=== PATIENT | male | born 1955 | race African-American/Black ===

== ENCOUNTER 2017-12-01 14:10 | Emergency (ER) | payer OTHER ==
--- NOTE | 2017-12-01 14:17 | ER Document Report ---
ED General - General Chief Complaint: Seizure Stated Complaint: POSSIBLE SEIZURE Time Seen by Provider: 12/01/17 14:16 Mode of Arrival: Medic Information source: Emergency Med Personnel Cannot obtain history due to: Altered mental status - HPI Patient complains to provider of: seizure Onset: Other - This is a 62-year-old man without known past medical history that of hypertension is suspected that presents for evaluation from home after EMS was called for concern of headache as well as chest pain and not feeling well, upon their arrival the gentleman had slumped over a table he subsequently suffered what looked like a generalized tonic-clonic seizure, he was given 2 mg of Ativan intravenously subsequently had another 2 mg dose when he appeared to be potentially having another seizure. Thereafter he became minimally responsive and somnolent. No obvious seizure activity was identified. Rest of history is limited secondary to patient's obtunded status - Related Data Allergies/Adverse Reactions: Penicillins Allergy (Verified 12/01/17 14:55) Past Medical History - General Information source: Relative, Emergency Med Personnel - Social History Smoking Status: Current Every Day Smoker Frequency of alcohol use: Heavy Drug Abuse: None Lives with: Family Family History: None Review of Systems - Review of Systems -: Yes ROS unobtainable due to patient's medical condition Physical Exam - Vital signs Vitals: Resp 31 H 12/01/17 14:12 - General General appearance: Unresponsive In distress: Mild - HEENT Head: Normocephalic Eyes: Normal Conjunctiva: Normal Cornea: Normal Extraocular movements intact: Yes Eyelashes: Normal Pupils: PERRL - Respiratory Respiratory status: No respiratory distress Chest status: Nontender Breath sounds: Rhonchi - Most prominent in the left right lung - Cardiovascular Rhythm: Regular Heart sounds: Normal auscultation Murmur: No - Abdominal Inspection: Normal Distension: No distension Tenderness: Nontender - Back Back: Normal - Extremities General upper extremity: Normal inspection, Nontender, Normal strength, Normal temperature General lower extremity: Normal inspection, Nontender, Normal strength, Normal temperature - Neurological Neuro grossly intact: No Cognition: Confused, Inattentive Orientation: Disoriented to person, Disoriented to events Bri Coma Scale Eye Opening: To Pain Bri Coma Scale Verbal: Confused [place] Coma Scale Motor: Localizes to Pain [place] Coma Scale Total: 11 Speech: Normal Cranial nerves: Normal Motor strength normal: LUE, RUE, LLE, RLE - Psychological Associated symptoms: Restlessness Course - Re-evaluation Re-evalutation: 12/01/17 17:18 This 62-year-old man presented after a seizure. He has no known medical problems per EMS they believe that she may have hypertension. On examination this patient does respond to noxious stimuli, he is somnolent likely as a result of the Ativan he received and the potential postictal phase. Patient was immediately assessed in the trauma bay, determination was made that the patient was able to protect airway as such proceeded with CT image following EKG, EKG demonstrated what appeared to be peaked T waves through the chest leads. Because of the concern for some underlying abnormality and electrolytes accounting for an arrhythmia causing his posturing made determination to administer calcium gluconate prophylactically for hyperkalemia. Patient was emergently taken to CT scanner, CT imaging of the head demonstrated an obvious abnormality in the posterior circulation which appeared to involve bleeding. Made determination to obtain CTA however in discussion with radiologist they suggested possible CT with and without contrast. A chest x-ray was also obtained which demonstrated what appeared to be a circular lesion in the right lower lung field. The patient's mental status modestly improved during this time, he also was dosed with 1500 of Keppra as well as 10 of Decadron for possible cerebral edema and seizure prophylaxis. CT imaging with contrast of the head and chest demonstrated what appeared to be lesions involving the posterior circulation with a probable mass in the brain and a mass in the right lower lung field. The patient was placed on nasal cannula and was able to protect his airway, his mental status modestly improved throughout. Contacted on-call neurosurgeon at [facility] who discussed case and suggested medical optimization as this is a new metastatic lesion. Spoke to on-call hospitalist who agreed to admit this patient to the neuro intensive care unit. Because of the patient's well appearance deferred intubation in this patient, his blood pressure was never higher than 130 systolic while in the emergency department therefore deferred administration of nicardipine infusion. Did suggest that patient undergo emergent transport via air as he did represent the potential to decompensate. However during his time his mental status had improved and he was neurologically intact. I did discuss this with his prior to his being transferred she did note that he has not seen a physician in many years, is a heavy smoker, as also a very heavy daily drinker. She was in agreement with the current course of action. She was at the bedside and updated prior to patient being transferred. - Vital Signs Vital signs: Temp Pulse Resp BP Pulse Ox 98.5 F 88 18 129/90 H 94 12/01/17 16:03 12/01/17 15:30 12/01/17 16:04 12/01/17 16:04 12/01/17 16:04 - Laboratory Result Diagrams: 12/01/17 14:16 12/01/17 14:16 Laboratory results interpreted by me: 12/01/17 12/01/17 14:16 14:16 Hgb 17.2 H RDW 15.3 H Carbon Dioxide 8 L* Anion Gap 27 H Creatinine 1.27 H Est GFR (Non-Af Amer) 58 L Glucose 180 H Critical Care Note - Critical Care Note Total time excluding time spent on procedures (mins): 45 Discharge - Discharge Clinical Impression: Brain mass, Lung mass, Brain bleed, Seizure, Alcohol abuse, Cigarette smoker Condition: Critical Disposition: [facility]
[2017-12-01] MEDS ORDERED: CALCIUM GLUCONATE 1000 MG/10 ML INJ IV ONE (14:21)
[2017-12-01 14:33] LABS: ABSOLUTE BASOPHILS # (AUTO) 0.1 10^3/uL (0.0-0.2); ABSOLUTE LYMPHOCYTES (AUTO) 4.1 10^3/uL (0.5-4.7); ABSOLUTE NEUT (AUTO) 5.3 10^3/uL (1.7-8.2); BASOPHILS % (AUTO) 0.6 % (0-2); EOSINOPHILS % (AUTO) 0.3 % (0-6); HEMATOCRIT 50.8 % (37.9-51.0); HEMOGLOBIN 17.2 g/dL (13.5-17.0); MEAN CORPUSCULAR HEMOGLOBIN 31.5 pg (27.0-33.4); MEAN CORPUSCULAR HGB CONC 33.9 g/dL (32.0-36.0); MEAN CORPUSCULAR VOLUME 93 fl (80-97); MONOCYTES % (AUTO) 9.3 % (3-13); PLATELET COUNT 296 10^3/uL (150-450); RED BLOOD COUNT 5.48 10^6/uL (4.35-5.55); RED CELL DISTRIBUTION WIDTH 15.3 % (11.5-14.0); SEGMENTED NEUTROPHILS % (AUTO) 50.8 % (42-78); TOTAL CELLS COUNTED % (AUTO) 100 %; WHITE BLOOD COUNT 10.4 10^3/uL (4.0-10.5)
[2017-12-01] MEDS ORDERED: LEVETIRACETAM INJ/PF 500 MG/5 ML SDV IV ONE (14:34)
[2017-12-01] MEDS ORDERED: DEXAMETHASONE SOD PHOS INJ 10 MG/1 ML VIAL IV ONE (14:43)
--- NOTE | 2017-12-01 14:48 | RADIOLOGY REPORT (SQ) ---
EXAM DESCRIPTION: CT HEAD WITHOUT COMPLETED DATE/TIME: 12/01/2017 2:30 pm REASON FOR STUDY: unresponsive COMPARISON: None. TECHNIQUE: Axial images acquired through the brain without intravenous contrast. Images reviewed wi th bone, brain and subdural windows. Additional sagittal and coronal reconstructions were generated. Images stored on PACS. All CT scanners at this facility use dose modulation, iterative reconstruction, and/or weight based d osing when appropriate to reduce radiation dose to as low as reasonably achievable (ALARA). [facility]: Dose Right [facility]: CareDose [facility]: Dose Right [facility]: Teradose 4D [facility]: [employer] RADIATION DOSE: CT Rad equipment meets quality standard of care and radiation dose reduction techniq ues were employed. CTDIvol: 55.2 mGy. DLP: 1084 mGy-cm. mGy. LIMITATIONS: None. FINDINGS: VENTRICLES: Normal size and contour. CEREBRUM: There is a 3 cm area of parenchymal hemorrhage in the posterior parietal lobe on the right. There is associated edema. Few scattered areas of low density in the white matter most likely chron ic small vessel ischemic changes. CEREBELLUM: No masses. No hemorrhage. No alteration of density. No evidence for acute infarction. EXTRAAXIAL SPACES: No fluid collections. No masses. ORBITS AND GLOBE: No intra- or extraconal masses. Normal contour of globe without masses. CALVARIUM: No fracture. PARANASAL SINUSES: No fluid or mucosal thickening. SOFT TISSUES: No mass or hematoma. OTHER: No other significant finding. IMPRESSION: 3 cm hemorrhage in the right posterior parietal lobe with associated edema. Cannot excl ude tumor. Mild chronic microvascular ischemia. EVIDENCE OF ACUTE STROKE: Yes hemorrhage RIGHT SLAGGER. COMMENT: Findings were discussed with the ordering physician at 1441 hours on this date. Quality ID # 436: Final reports with documentation of one or more dose reduction techniques (e.g., Au tomated exposure control, adjustment of the mA and/or kV according to patient size, use of iterative reconstruction technique) TECHNICAL DOCUMENTATION: JOB ID: [id number] [employer]- All Rights Reserved Reading location - IP/workstation name: [email or web address]
[2017-12-01 14:53] LABS: ALANINE AMINOTRANSFERASE 31 U/L (21-72); ALKALINE PHOSPHATASE 59 U/L (38-126); ASPARTATE AMINO TRANSFERASE 38 U/L (17-59); BILIRUBIN,DIRECT 0.3 mg/dL (0.0-0.4); BILIRUBIN,TOTAL 0.7 mg/dL (0.2-1.3); BLOOD UREA NITROGEN 13 mg/dL (7-20); CALCIUM 8.9 mg/dL (8.4-10.2); CHLORIDE 106 mmol/L (98-107); GLUCOSE 180 mg/dL (75-110); POTASSIUM 4.3 mmol/L (3.6-5.0); SODIUM 140.9 mmol/L (137-145); TOTAL PROTEIN 6.6 g/dL (6.3-8.2)
--- NOTE | 2017-12-01 14:59 | RADIOLOGY REPORT (SQ) ---
EXAM DESCRIPTION: CHEST SINGLE VIEW COMPLETED DATE/TIME: 12/01/2017 2:47 pm REASON FOR STUDY: Poss Stroke COMPARISON: None. EXAM PARAMETERS: NUMBER OF VIEWS: One view. TECHNIQUE: Single frontal radiographic view of the chest acquired. RADIATION DOSE: NA LIMITATIONS: None. FINDINGS: LUNGS AND PLEURA: About a 6 cm mass is present in the right base. MEDIASTINUM AND HILAR STRUCTURES: No masses. Contour normal. HEART AND VASCULAR STRUCTURES: Heart normal in size. Normal vasculature. BONES: No acute findings. HARDWARE: None in the chest. OTHER: No other significant finding. IMPRESSION: 6 cm right lower lobe pulmonary mass. TECHNICAL DOCUMENTATION: JOB ID: [id number] [employer]- All Rights Reserved Reading location - IP/workstation name: [email or web address]
[2017-12-01 15:03] LABS: NT PRO BNP 128 pg/mL (5-900)
--- NOTE | 2017-12-01 15:03 | RADIOLOGY REPORT (SQ) ---
EXAM DESCRIPTION: CT HEAD WITH COMPLETED DATE/TIME: 12/01/2017 2:52 pm REASON FOR STUDY: qiuery mass vs bleed in posterior COMPARISON: Noncontrast CT Head 12/01/2017 TECHNIQUE: Axial images acquired through the brain with intravenous contrast. Images reviewed with b one, brain and subdural windows. Additional sagittal and coronal reconstructions were generated. Khushboo ges stored on PACS. All CT scanners at this facility use dose modulation, iterative reconstruction, and/or weight based d osing when appropriate to reduce radiation dose to as low as reasonably achievable (ALARA). [facility]: Dose Right [facility]: CareDose [facility]: Dose Right [facility]: Teradose 4D [facility]: [employer] CONTRAST TYPE AND DOSE: 79 mL Omnipaque 350- low osmolar. RENAL FUNCTION: Not recorded here RADIATION DOSE: CT Rad equipment meets quality standard of care and radiation dose reduction techniq ues were employed. CTDIvol: 53.2 mGy. DLP: 1044 mGy-cm.. LIMITATIONS: None. FINDINGS: VENTRICLES: Normal size and contour. CEREBRUM: 3 cm area of increased attenuation in the posterior parietal lobe on the right. There appe ars to be some peripheral enhancement. CEREBELLUM: No masses. No hemorrhage. No alteration of density. No evidence for acute infarction. No enhancing lesions. EXTRA-AXIAL SPACES: No fluid collections. No enhancing lesions. ORBITS AND GLOBE: No intra- or extraconal masses. Normal contour of globe without masses. CALVARIUM: No fracture. PARANASAL SINUSES: No fluid or mucosal thickening. SOFT TISSUES: No mass or hematoma. OTHER: No other significant finding. IMPRESSION: Metastatic lesion in the right posterior parietal lobe. There appears to be some associ ated hemorrhage centrally. EVIDENCE OF ACUTE STROKE: NO. TECHNICAL DOCUMENTATION: JOB ID: [id number] Quality ID # 436: Final reports with documentation of one or more dose reduction techniques (e.g., Au tomated exposure control, adjustment of the mA and/or kV according to patient size, use of iterative reconstruction technique) 2010 [employer]- All Rights Reserved Reading location - IP/workstation name: [email or web address]
[2017-12-01 15:05] LABS: CARBON DIOXIDE 8 mmol/L (22-30)
--- NOTE | 2017-12-01 15:08 | RADIOLOGY REPORT (SQ) ---
EXAM DESCRIPTION: CT CHEST WITH COMPLETED DATE/TIME: 12/01/2017 2:52 pm REASON FOR STUDY: lung mass on the right COMPARISON: None. TECHNIQUE: CT scan of the chest performed using helical scanning technique with dynamic intravenous contrast injection. Images reviewed with lung, soft tissue and bone windows. Reconstructed coronal and sagittal MPR and MIP images reviewed. All images stored on PACS. All CT scanners at this facility use dose modulation, iterative reconstruction, and/or weight based d osing when appropriate to reduce radiation dose to as low as reasonably achievable (ALARA). [facility]: Dose Right [facility]: CareDose [facility]: Dose Right [facility]: Teradose 4D [facility]: [employer] CONTRAST TYPE AND DOSE: contrast/concentration: Isovue 350.00 mg/ml; Total Contrast Delivered: 79.0 ml; Total Saline Delivered: 51.0 ml RENAL FUNCTION: Not recorded here RADIATION DOSE: CT Rad equipment meets quality standard of care and radiation dose reduction techniq ues were employed. CTDIvol: 14.4 mGy. DLP: 597 mGy-cm. . LIMITATIONS: None. FINDINGS: LUNGS AND PLEURA: There is a mass in the right lower lobe is measures 7.2 cm in AP diamete r on image 38 series 4. There may be some small satellite lesions inferolateral to the mass. HILAR AND MEDIASTINAL STRUCTURES: Right hilar adenopathy. Precarinal adenopathy. subcarinal adenopa thy. HEART AND VASCULAR STRUCTURES: No aneurysm or dissection. No central pulmonary emboli. No pericardi al effusion. HARDWARE: None in the chest. UPPER ABDOMEN: No significant findings. Limited exam. THYROID AND OTHER SOFT TISSUES: No masses. No adenopathy. BONES: No significant finding. OTHER: No other significant finding. IMPRESSION: Large right lower lobe lung mass. There may be some small satellite lesions. Cannot ex clude mild infiltrate peripheral to this. Hilar and mediastinal adenopathy. TECHNICAL DOCUMENTATION: JOB ID: [id number] Quality ID # 436: Final reports with documentation of one or more dose reduction techniques (e.g., Au tomated exposure control, adjustment of the mA and/or kV according to patient size, use of iterative reconstruction technique) 2010 [employer]- All Rights Reserved Reading location - IP/workstation name: [email or web address]
[2017-12-01 15:09] LABS: TROPONIN I < 0.012 ng/mL
[2017-12-01 15:26] LABS: ANION GAP 27 (5-19)
[2017-12-01] MEDS ORDERED: NICOTINE 21 MG/24 HR PATCH.TD24 TD ONE (15:59)
[2017-12-01 16:06] VITALS: BP 129/90
--- NOTE | 2017-12-01 19:21 | EKG REPORT ---
SEVERITY:- OTHERWISE NORMAL ECG - SINUS TACHYCARDIA BORDERLINE RIGHT AXIS DEVIATION : Confirmed by: Tiago Melchor MD 01-Dec-2017 19:20:37
== END 2017-12-01 16:14 | disposition short-term general hospital (02) ==
LOC: ER 14:10
DX: I61.1 Nontraumatic intracerebral hemorrhage in hemisphere, cortical (principal); R40.0 Somnolence; G93.89 Other specified disorders of brain; R91.8 Other nonspecific abnormal finding of lung field; R56.9 Unspecified convulsions; F10.10 Alcohol abuse, uncomplicated; F17.210 Nicotine dependence, cigarettes, uncomplicated; R09.89 Other specified symptoms and signs involving the circulatory and respiratory systems; R41.0 Disorientation, unspecified; Z88.0 Allergy status to penicillin
CPT/HCPCS: 93005; 99291; 96374; 96375; 36415; 85025; 80053; 84484; 83880; 71045; 70450; 70460; 71260; 93010; J0610; J1953; J1100

== ENCOUNTER → 2017-12-24 | Outpatient (CLI) | payer OTHER ==
--- NOTE | 2017-12-25 10:39 | RADIOLOGY REPORT (SQ) ---
EXAM DESCRIPTION: PET CT SKULL/THIGH COMPLETED DATE/TIME: 12/24/2017 9:40 pm REASON FOR STUDY: LUNG MASS R91.8 OTHER NONSPECIFIC ABNORMAL FINDING OF LUNG FIELD COMPARISON: CT brain 12/01/2017 CT chest 12/01/2017 RADIONUCLIDE AND DOSE: 11.7 mCi F18 FDG The route of agent administration: Intravenous FASTING BLOOD SUGAR: 118 mg/dl CONTRAST TYPE AND DOSE: No CT contrast given. TECHNIQUE: Blood glucose level was verified. Above dose of FDG was injected intravenously. 2-D seg mented attenuation correction images were obtained from the base of the skull to the midthighs. Nonc ontrast CT images were obtained for attenuation correction and fusion with emission images. CT image s were performed without oral or intravenous contrast and are not sensitive for parenchymal lesions. A series of overlapping emission PET images were obtained. Images reviewed and manipulated at [facility] work station by the radiologist. Images stored on PACS. LIMITATIONS: None. FINDINGS: HEAD AND NECK: No areas of abnormal metabolic activity in the soft tissues of the head and neck. CHEST: In the right lower lobe just above the hemidiaphragm, a 7 x 6.4 cm mass is present with a madhu pheral rim of hypermetabolic tissue ranging from 5 to 6 SUV. This finding is worrisome for a primary lung neoplasm. There is hypermetabolic adenopathy in the precarinal subcarinal and right hilar regions as follows: Precarinal 3.3 x 2.4 cm lymph node with peripheral rim of increased activity at SUV 4.4. Sub- carinal/inferior right hilar adenopathy 3.9 x 2.7 cm in size, with peripheral rim of increased a ctivity SUV 5.2. Multiple right hilar lymph nodes are present 1 to 2 cm in size ranging in activity from 3.9 to 4.3 RODRÍGUEZ V. ABDOMEN AND PELVIS: No areas of abnormal metabolic activity in the abdomen or pelvis. Expected physi ologic activity is present in the genitourinary system and bowel. PROXIMAL LOWER EXTREMITIES: No areas of abnormal metabolic activity in the soft tissues of the lower extremities. BONES: No abnormal metabolic activity in the visualized skeleton. ADDITIONAL CT FINDINGS: Question right vocal cord paralysis OTHER: Liver background activity 1.7 SUV. Blood pool background activity 1.3 SUV IMPRESSION: Malignant right lower lobe mass with malignant right hilar and mediastinal adenopathy. TECHNICAL DOCUMENTATION: JOB ID: [id number] [employer]- All Rights Reserved Reading location - IP/workstation name: [email or web address]
== END ==
LOC: RAD 18:47
PROVIDERS: ATTEND Internal Medicine Medical Oncology
DX: C34.31 Malignant neoplasm of lower lobe, right bronchus or lung (principal)
CPT/HCPCS: 78815; A9552

== ENCOUNTER 2018-01-08 08:52 | Day surgery (SDC) | payer OTHER ==
[2018-01-08 09:29] LABS: HEMATOCRIT 48.2 % (37.9-51.0); HEMOGLOBIN 17.1 g/dL (13.5-17.0); MEAN CORPUSCULAR HEMOGLOBIN 31.5 pg (27.0-33.4); MEAN CORPUSCULAR HGB CONC 35.4 g/dL (32.0-36.0); MEAN CORPUSCULAR VOLUME 89 fl (80-97); PLATELET COUNT 252 10^3/uL (150-450); RED BLOOD COUNT 5.43 10^6/uL (4.35-5.55); RED CELL DISTRIBUTION WIDTH 14.5 % (11.5-14.0); WHITE BLOOD COUNT 9.8 10^3/uL (4.0-10.5)
[2018-01-08 09:38] LABS: INTERNATIONAL RATION (INR) 0.86; PROTHROMBIN TIME 12.2 SEC (11.4-15.4)
[2018-01-08 09:39] LABS: PARTIAL THROMBOPLASTIN TIME 25.8 SEC (23.5-35.8)
[2018-01-08 09:55] LABS: BLOOD UREA NITROGEN 11 mg/dL (7-20)
[2018-01-08] MEDS ORDERED: FENTANYL CITRATE INJ/PF 100 MCG/2 ML AMPUL ONE ×2 (10:51→11:09)
[2018-01-08] MEDS ORDERED: LIDOCAINE 1% INJ-PF (10 MG/ML) 30 ML SDV ONE (10:51)
--- NOTE | 2018-01-08 12:25 | RADIOLOGY REPORT (SQ) ---
EXAM DESCRIPTION: CHEST SINGLE VIEW COMPLETED DATE/TIME: 01/08/2018 12:00 pm REASON FOR STUDY: LUNG MASS, POST RIGHT LUNG BIOPSY COMPARISON: 12/01/2017. EXAM PARAMETERS: NUMBER OF VIEWS: One view. TECHNIQUE: Single frontal radiographic view of the chest acquired. RADIATION DOSE: NA LIMITATIONS: None. FINDINGS: LUNGS AND PLEURA: Mass in the right lower lobe. Left lung clear. No pneumothorax. No pl eural effusion. MEDIASTINUM AND HILAR STRUCTURES: No masses. Contour normal. HEART AND VASCULAR STRUCTURES: Heart normal in size. Normal vasculature. BONES: No acute findings. HARDWARE: None in the chest. OTHER: No other significant finding. IMPRESSION: NO PNEUMOTHORAX FOLLOWING PERCUTANEOUS BIOPSY OF THE MASS IN THE RIGHT LOWER LOBE. TECHNICAL DOCUMENTATION: JOB ID: [id number] [employer]- All Rights Reserved Reading location - IP/workstation name: [email or web address]
--- NOTE | 2018-01-08 12:48 | RADIOLOGY REPORT (SQ) ---
EXAM DESCRIPTION: CT BIOPSY LUNG/MEDIASTINUM; CT NEEDLE PLACEMENT COMPLETED DATE/TIME: 01/08/2018 11:49 am REASON FOR STUDY: LUNG MASS R91.8 OTHER NONSPECIFIC ABNORMAL FINDING OF LUNG FIELD COMPARISON: CT brain 12/01/2017 PET-CT 12/24/2017 TECHNIQUE: CT guided biopsy of the right lower lobe mass performed with conscious sedation. CT Fluoroscopy Time: [address] scanners at this facility use dose modulation, iterative reconstruction, and/or weight based d osing when appropriate to reduce radiation dose to as low as reasonably achievable (ALARA). [facility]: Dose Right [facility]: CareDose [facility]: Dose Right [facility]: Teradose 4D [facility]: Palmer Hargreaves RADIATION DOSE: 68 mGy. FINDINGS: After obtaining informed consent and explaining the risks and benefits of conscious sedati on,the patient agreed to the procedure. Prior to the procedure, a time out was performed to verify th e patient's identity and planned procedure. IV pain control was administered and physician direction by the registered nurse using 200 micrograms of fentanyl, for pain control. Physiologic monitoring was provided before, during, and after IV fent anyl. The total nursing observation time was 30 minutes. Documentation face to face time, the performing proceduralist, spent monitoring the patient: [address] scanning was performed to localize the percutaneous site for the biopsy approach. After sterile skin prep and local lidocaine for skin and deep tissue anesthesia, a coaxial biopsy nee dle was used to obtain multiple cores of tissue. The biopsy tract was embolized with a [employer] clos ure device. The biopsy tissue was submitted to the lab in formalin. There were no immediate complicat ions. Pathology is pending at the time of dictation. IMPRESSION: CT GUIDED BIOPSY OF THE RIGHT LOWER LOBE LUNG MASS PERFORMED WITHOUT IMMEDIATE COMPLICAT ION. PATHOLOGY PENDING. COMMENT: Quality ID 145: Final reports for procedures using fluoroscopy that document radiation exp osure indices, or exposure time and number of fluorographic images (if radiation exposure indices are not available) Patient medication list reviewed: Yes- Quality ID# [id number]:Eligible professional attests to documenting i n the medical record they obtained, updated, or reviewed the patient's current medications.. TECHNICAL DOCUMENTATION: JOB ID: [id number] Quality ID# 436: Final reports with documentation of one or more dose reduction techniques (e.g., Aut omated exposure control, adjustment of the mA and/or kV according to patient size, use of iterative r econstruction technique) 2010 [employer]- All Rights Reserved Reading location - IP/workstation name: [email or web address]
--- NOTE | 2018-01-08 12:48 | RADIOLOGY REPORT (SQ) ---
EXAM DESCRIPTION: CT BIOPSY LUNG/MEDIASTINUM; CT NEEDLE PLACEMENT COMPLETED DATE/TIME: 01/08/2018 11:49 am REASON FOR STUDY: LUNG MASS R91.8 OTHER NONSPECIFIC ABNORMAL FINDING OF LUNG FIELD COMPARISON: CT brain 12/01/2017 PET-CT 12/24/2017 TECHNIQUE: CT guided biopsy of the right lower lobe mass performed with conscious sedation. CT Fluoroscopy Time: [address] scanners at this facility use dose modulation, iterative reconstruction, and/or weight based d osing when appropriate to reduce radiation dose to as low as reasonably achievable (ALARA). [facility]: Dose Right [facility]: CareDose [facility]: Dose Right [facility]: Teradose 4D [facility]: [employer] RADIATION DOSE: 68 mGy. FINDINGS: After obtaining informed consent and explaining the risks and benefits of conscious sedati on,the patient agreed to the procedure. Prior to the procedure, a time out was performed to verify th e patient's identity and planned procedure. IV pain control was administered and physician direction by the registered nurse using 200 micrograms of fentanyl, for pain control. Physiologic monitoring was provided before, during, and after IV fent anyl. The total nursing observation time was 30 minutes. Documentation face to face time, the performing proceduralist, spent monitoring the patient: [address] scanning was performed to localize the percutaneous site for the biopsy approach. After sterile skin prep and local lidocaine for skin and deep tissue anesthesia, a coaxial biopsy nee dle was used to obtain multiple cores of tissue. The biopsy tract was embolized with a [employer] clos ure device. The biopsy tissue was submitted to the lab in formalin. There were no immediate complicat ions. Pathology is pending at the time of dictation. IMPRESSION: CT GUIDED BIOPSY OF THE RIGHT LOWER LOBE LUNG MASS PERFORMED WITHOUT IMMEDIATE COMPLICAT ION. PATHOLOGY PENDING. COMMENT: Quality ID 145: Final reports for procedures using fluoroscopy that document radiation exp osure indices, or exposure time and number of fluorographic images (if radiation exposure indices are not available) Patient medication list reviewed: Yes- Quality ID# [id number]:Eligible professional attests to documenting i n the medical record they obtained, updated, or reviewed the patient's current medications.. TECHNICAL DOCUMENTATION: JOB ID: [id number] Quality ID# 436: Final reports with documentation of one or more dose reduction techniques (e.g., Aut omated exposure control, adjustment of the mA and/or kV according to patient size, use of iterative r econstruction technique) 2010 [employer]- All Rights Reserved Reading location - IP/workstation name: [facility]-[email or web address]
--- NOTE | 2018-01-08 14:22 | RADIOLOGY REPORT (SQ) ---
EXAM DESCRIPTION: CHEST SINGLE VIEW COMPLETED DATE/TIME: 01/08/2018 2:13 pm REASON FOR STUDY: LUNG MASS, POST RIGHT LUNG BIOPSY(2 HR FILM @1345HRS) COMPARISON: AP chest 01/08/2018, 12/01/2017 EXAM PARAMETERS: NUMBER OF VIEWS: One view. TECHNIQUE: Single frontal radiographic view of the chest acquired. RADIATION DOSE: NA LIMITATIONS: None. FINDINGS: LUNGS AND PLEURA: No pneumothorax right-side, 2 hours post lung biopsy. 6 to 7 cm right lower lobe mass is unchanged. Left lung well inflated and clear. No right or left pleural effusion. MEDIASTINUM AND HILAR STRUCTURES: Fullness right hilum unchanged HEART AND VASCULAR STRUCTURES: Heart normal in size. Normal vasculature. BONES: No acute findings. HARDWARE: None in the chest. OTHER: No other significant finding. IMPRESSION: No pneumothorax 2 hours post right lung biopsy TECHNICAL DOCUMENTATION: JOB ID: [id number] [employer]- All Rights Reserved Reading location - IP/workstation name: [email or web address]
[2018-01-08 14:32] VITALS: BP 126/81
== END 2018-01-08 14:30 | disposition home or self-care (01) ==
LOC: RAD 08:52
PROVIDERS: ATTEND Internal Medicine Medical Oncology
DX: R91.8 Other nonspecific abnormal finding of lung field (principal); D49.6 Neoplasm of unspecified behavior of brain; F17.210 Nicotine dependence, cigarettes, uncomplicated; Z79.899 Other long term (current) drug therapy; Z88.0 Allergy status to penicillin
CPT/HCPCS: 36415; 82962; 84520; 82565; 85027; 85610; 85730; 71045; 77012; 32405; J3010; J3490

== ENCOUNTER → 2018-02-15 | Outpatient (CLI) | payer OTHER ==
--- NOTE | 2018-02-15 14:44 | RADIOLOGY REPORT (SQ) ---
EXAM DESCRIPTION: MRI HEAD COMBO COMPLETED DATE/TIME: 02/15/2018 1:59 pm REASON FOR STUDY: MALIGNANT NEOPLASM OF BRAIN C79.31 SECONDARY MALIGNANT NEOPLASM OF BRAIN COMPARISON: CT brain 12/01/2017 TECHNIQUE: Multiplanar imaging includes noncontrasted T1, T2, FLAIR, diffusion with ADC map and post gadolinium contrast T1 sequences. Images stored on PACS. CONTRAST TYPE AND DOSE: 15 mL Dotare[employer] RENAL FUNCTION: GFR > 60. LIMITATIONS: None. FINDINGS: ANATOMY: No anomalies. Normal vascular flow voids. Pituitary fossa normal. CSF SPACES: Normal in size and contour. No hemorrhage. CEREBRUM: Tumor recurrence in the right parasagittal parietal region in the area of prior craniotomy in November 2017. On the current study, in the right parasagittal parietal brain parenchyma, a 3.8 x 3.8 x 2.6 cm perip heral rim enhancing tumor mass is present. An adjacent, smaller 2.2 x 1.8 x 1.4 cm tumor mass is pre sent. These masses have avid peripheral rim gadolinium enhancement and moderate surrounding gliosis or edema on FLAIR/T2 images in the right parietal and posterior temporal regions. No MR evidence of acute ischemic change, acute intracranial hemorrhage, or midline shift. POSTERIOR FOSSA: No signal alteration. No hemorrhage. No edema, masses, or mass effect. Internal jung tory canals, cerebellopontine angles, mastoids normal. No enhancing lesions. No abnormal enhancement post contrast. DIFFUSION IMAGING: Negative for acute or subacute infarction. ORBITS: No masses. Globes normal. PARANASAL SINUSES: No fluid levels. Mucosa normal. OTHER: Old right parietal craniotomy. IMPRESSION: Tumor recurrence in the right parietal brain parenchyma, 3.8 cm nodule and 2.2 cm nodule are present on today's study. EVIDENCE OF ACUTE STROKE: NO. TECHNICAL DOCUMENTATION: JOB ID: [id number] [employer]- All Rights Reserved Reading location - IP/workstation name: [email or web address]
== END ==
LOC: RAD 13:03
PROVIDERS: ATTEND Internal Medicine Medical Oncology
DX: C79.31 Secondary malignant neoplasm of brain (principal)
CPT/HCPCS: 70553; A9576

== ENCOUNTER → 2018-02-18 | Outpatient (CLI) | payer OTHER ==
--- NOTE | 2018-02-19 15:47 | RADIOLOGY REPORT (SQ) ---
EXAM DESCRIPTION: PET CT SKULL/THIGH COMPLETED DATE/TIME: 02/18/2018 10:26 pm REASON FOR STUDY: SECONDARY MALIGNANT NEOPLASM OF BRAIN C79.31 SECONDARY MALIGNANT NEOPLASM OF BRAI N COMPARISON: PET-CT 12/24/2017 Brain MRI 02/15/2018 CT chest 12/24/2017, 12/01/2017 RADIONUCLIDE AND DOSE: 11.1 mCi F18 FDG The route of agent administration: Intravenous FASTING BLOOD SUGAR: 154 mg/dl CONTRAST TYPE AND DOSE: No CT contrast given. TECHNIQUE: Blood glucose level was verified. Above dose of FDG was injected intravenously. 2-D seg mented attenuation correction images were obtained from the base of the skull to the midthighs. Nonc ontrast CT images were obtained for attenuation correction and fusion with emission images. CT image s were performed without oral or intravenous contrast and are not sensitive for parenchymal lesions. A series of overlapping emission PET images were obtained. Images reviewed and manipulated at [facility] work station by the radiologist. Images stored on PACS. LIMITATIONS: None. FINDINGS: HEAD AND NECK: No areas of abnormal metabolic activity in the soft tissues of the head and neck. CHEST: In the right lower lobe, a primary lung mass is present measuring 7 x 6.4 cm in size, stable c ompared to 12/24/2017. Currently, SUVs around the periphery of the tumor measures 3.6 to 4.7 (was ab out 5 to 6 SUV around the periphery of the tumor on 12/24/2017). Mediastinal adenopathy as follows: Precarinal 3.7 x 2.6 cm node axial image 90 with spotty peripheral increased activity ranging from 2. 6 to 3.4 (was 3.3 x 2.4 cm with SUV 4.4 on 12/24/2017). Sub- carinal 4.4 x 2.7 cm conglomerate adenopathy axial image 105 with SUV 3.9 (was 3.9 x 2.7 cm in s ize with SUV 5.2 on 12/24/2017) Multiple right hilar 1 to 2 cm lymph nodes are present, with SUV of 2.8 (same size, with SUVs 3.9 to 4.3 on 12/24/2017). ABDOMEN AND PELVIS: No areas of abnormal metabolic activity in the abdomen or pelvis. Expected physi ologic activity is present in the genitourinary system and bowel. PROXIMAL LOWER EXTREMITIES: No areas of abnormal metabolic activity in the soft tissues of the lower extremities. BONES: No abnormal metabolic activity in the visualized skeleton. ADDITIONAL CT FINDINGS: Liver background activity 2.4 SUV. Blood pool background activity 1.7 SUV OTHER: No other significant findings. IMPRESSION: Decrease in SUV values over the adenopathy in the mediastinum, with slight increase in s ize of the lymph nodes in the precarinal and subcarinal regions Stable size 7 x 6.4 cm mass right lower lobe, with decrease in metabolic activity compared to 018 TECHNICAL DOCUMENTATION: JOB ID: [id number] [employer]- All Rights Reserved Reading location - IP/workstation name: [email or web address]
== END ==
LOC: RAD 18:58
PROVIDERS: ATTEND Internal Medicine Medical Oncology
DX: C79.31 Secondary malignant neoplasm of brain (principal); C34.90 Malignant neoplasm of unspecified part of unspecified bronchus or lung
CPT/HCPCS: 78815; A9552

== ENCOUNTER → 2018-04-15 | Outpatient (CLI) | payer OTHER ==
--- NOTE | 2018-04-16 09:38 | RADIOLOGY REPORT (SQ) ---
EXAM DESCRIPTION: PET CT SKULL/THIGH COMPLETED DATE/TIME: 04/15/2018 9:04 pm REASON FOR STUDY: LUNG CANCER WITH METS TO BRAIN C34.90 MALIGNANT NEOPLASM OF UNSP PART OF UNSP BRO NCHUS OR L COMPARISON: Since PET-CT 02/18/2018, 12/24/2017 RADIONUCLIDE AND DOSE: 11.9 mCi F18 FDG The route of agent administration: Intravenous FASTING BLOOD SUGAR: 86 mg/dl CONTRAST TYPE AND DOSE: No CT contrast given. TECHNIQUE: Blood glucose level was verified. Above dose of FDG was injected intravenously. 2-D seg mented attenuation correction images were obtained from the base of the skull to the midthighs. Nonc ontrast CT images were obtained for attenuation correction and fusion with emission images. CT image s were performed without oral or intravenous contrast and are not sensitive for parenchymal lesions. A series of overlapping emission PET images were obtained. Images reviewed and manipulated at [facility] work station by the radiologist. Images stored on PACS. LIMITATIONS: None. FINDINGS: HEAD AND NECK: No areas of abnormal metabolic activity in the soft tissues of the head and neck. CHEST: Decrease in size of the right lower lobe small cell carcinoma, now 4.4 x 4 cm in size with aura tral necrosis and minimal peripheral rim of activity with SUV 2.4 (was 7 x 6.4 cm in diameter 9 with SUV of 4.7). Precarinal lymph node now 1.8 x 1.1 cm in size with SUV 1.9 (was 3.7 x 2.6 cm with SUV 3.40 on 02/18/19 19). Sub- carinal 1.9 x 1.2 cm lymph node with SUV 1.7 (was 4.4 x 2.7 cm with SUV 3.9 on 02/18/2018). The small right hilar lymph nodes seen on 02/18/2018 are no longer identified. ABDOMEN AND PELVIS: No areas of abnormal metabolic activity in the abdomen or pelvis. Expected physi ologic activity is present in the genitourinary system and bowel. PROXIMAL LOWER EXTREMITIES: No areas of abnormal metabolic activity in the soft tissues of the lower extremities. BONES: No abnormal metabolic activity in the visualized skeleton. ADDITIONAL CT FINDINGS: Coronary artery calcification. Destructive lung disease. Small hiatal herni a. Degenerative disc changes in the cervical spine OTHER: Liver background activity 1.7 SUV. Blood pool background activity 1.4 SUV IMPRESSION: Treatment response as above. TECHNICAL DOCUMENTATION: JOB ID: [id number] [employer]- All Rights Reserved Reading location - IP/workstation name: [email or web address]
== END ==
LOC: RAD 18:29
PROVIDERS: ATTEND Internal Medicine Medical Oncology
DX: C34.31 Malignant neoplasm of lower lobe, right bronchus or lung (principal); K44.9 Diaphragmatic hernia without obstruction or gangrene; M50.30 Other cervical disc degeneration, unspecified cervical region
CPT/HCPCS: 78815; A9552

== ENCOUNTER → 2018-09-09 | Outpatient (CLI) | payer OTHER ==
--- NOTE | 2018-09-10 10:11 | RADIOLOGY REPORT (SQ) ---
EXAM DESCRIPTION: PET CT SKULL/THIGH COMPLETED DATE/TIME: 09/09/2018 10:17 pm REASON FOR STUDY: (C34.90)MALIGNANT NEOPLASM OF UNSP PART OF UNSP BRONCHUS OR LUNG,(C79.31)SE C34.90 MALIGNANT NEOPLASM OF UNSP PART OF UNSP BRONCHUS OR L C79.31 SECONDARY MALIGNANT NEOPLASM OF BRAIN COMPARISON: 04/15/2018 and 02/18/2018. RADIONUCLIDE AND DOSE: 10 mCi F18 FDG The route of agent administration: Intravenous FASTING BLOOD SUGAR: 86 mg/dl CONTRAST TYPE AND DOSE: No CT contrast given. TECHNIQUE: Blood glucose level was verified. Above dose of FDG was injected intravenously. 2-D seg mented attenuation correction images were obtained from the base of the skull to the midthighs. Nonc ontrast CT images were obtained for attenuation correction and fusion with emission images. CT image s were performed without oral or intravenous contrast and are not sensitive for parenchymal lesions. A series of overlapping emission PET images were obtained. Images reviewed and manipulated at [facility] work station by the radiologist. Images stored on PACS. LIMITATIONS: None. FINDINGS: HEAD AND NECK: No areas of abnormal metabolic activity in the soft tissues of the head and neck. CHEST: Continued decrease in size of the mass in the right lower lobe with central necrosis. Current measurement 3.0 x 3.1 cm. Prior measurement 4 x 4.4 cm. No significant activity along the peripher y. Mean SUV 1.27 with prior value 2.4. No suspicious adenopathy. ABDOMEN AND PELVIS: No areas of abnormal metabolic activity in the abdomen or pelvis. Expected physi ologic activity is present in the genitourinary system and bowel. PROXIMAL LOWER EXTREMITIES: No areas of abnormal metabolic activity in the soft tissues of the lower extremities. BONES: No abnormal metabolic activity in the visualized skeleton. ADDITIONAL CT FINDINGS: No additional significant findings on the noncontrast CT images. OTHER: No other significant findings. IMPRESSION: CONTINUED FAVORABLE RESPONSE. THE MASS IN THE RIGHT LOWER LOBE HAS DECREASED IN SIZE AN D ACTIVITY HAS DECREASED. NO SUSPICIOUS ADENOPATHY. NO OTHER SIGNIFICANT FINDINGS. TECHNICAL DOCUMENTATION: JOB ID: [id number] [employer]- All Rights Reserved Reading location - IP/workstation name: [email or web address]
== END ==
LOC: RAD 16:05
PROVIDERS: ATTEND Internal Medicine Medical Oncology
DX: C34.90 Malignant neoplasm of unspecified part of unspecified bronchus or lung (principal); C79.31 Secondary malignant neoplasm of brain
CPT/HCPCS: 78815; A9552

== ENCOUNTER 2018-12-01 11:32 | Emergency (ER) | payer OTHER ==
[2018-12-01] MEDS ORDERED: ADENOSINE INJ/PF 6 MG/2 ML SDV IV ONE ×3 (11:44→12:03)
[2018-12-01] MEDS ORDERED: DILTIAZEM HCL INJ 25 MG/5 ML VIAL IV ONE (11:46)
[2018-12-01] MEDS ORDERED: DILTIAZEM HCL INJ 25 MG/5 ML VIAL ONE (11:46)
[2018-12-01] MEDS ORDERED: NORMAL SALINE 1000 ML 1,000 ML IV ONE (11:48)
[2018-12-01] MEDS ORDERED: LEVETIRACETAM 500 MG/NACL-ISO 0 MG/0 ML RTUPB IV ONE (11:48)
[2018-12-01] MEDS ORDERED: LEVETIRACETAM 1000 MG/NACL-ISO 1,000 MG/100 ML RTUPB IV ONE ×2 (11:49→11:52)
[2018-12-01] MEDS ORDERED: ETOMIDATE INJ/PF 20 MG/10 ML SDV IV ONE ×2 (11:50→12:02)
[2018-12-01] MEDS ORDERED: SUCCINYLCHOLINE CHLORIDE INJ 200 MG/10 ML VIAL IV ONE (11:51)
[2018-12-01] MEDS ORDERED: PROPOFOL 1,000 MG/100 ML INFUS..BTL IV ONE ×2 (11:54→13:31)
[2018-12-01] MEDS ORDERED: CALCIUM GLUCONATE 1000 MG/10 ML INJ IV ONE ×2 (11:55→11:57)
[2018-12-01] MEDS ORDERED: PROPOFOL 1,000 MG/100 ML INFUS..BTL IV PRN (12:00)
--- NOTE | 2018-12-01 12:11 | ER Document Report ---
ED General - General Stated Complaint: POSSIBLE STROKE Time Seen by Provider: 12/01/18 12:02 Primary Care Provider: SRIDHAR ORTIZ MD [Primary Care Provider] - Follow up as needed Notes: HPI: 63-year-old male with past medical history as recorded including metastatic lung cancer currently being treated on chemotherapy and radiation who presents today with EMS secondary to altered mental status and a code stroke activation. According to family was at bedside the patient was doing well last night and this morning when he awoke. Around 8 AM he started to state he felt a little "lightheaded". He then became slightly unresponsive with some decreased movement of the right arm and right leg and some confusion. No fevers or vomiting. EMS states a normal glucose. Patient did have a 1 minute seizure in route resolved with Ativan. ROS: See HPI All other review of systems reviewed and otherwise negative Reviewed vital signs and nursing note as charted by RN. PHYSICAL EXAM: CONSTITUTIONAL: Patient is alert speaking in comprehensible sounds and making movements with the left arm and leg only HEAD: Normocephalic; atraumatic EYES: PERRL; patient's gaze is restricted to the right side ENT: Normal nose; no rhinorrhea; moist mucous membranes; pharynx without lesions noted NECK: Supple without meningismus; non-tender; no cervical lymphadenopathy, no masses CARD: Tachycardic and regular; no murmurs RESP: Normal chest excursion without splinting or tachypnea; breath sounds clear and equal bilaterally ABD/GI: Normal bowel sounds; non-distended; soft, non-tender; no palpable organomegaly or masses BACK: The back appears normal and is non-tender to palpation EXT: Decreased range of motion of the right upper and lower extremity SKIN: No acute lesions noted NEURO: Patient has a right lateral gaze. No obvious facial droop. Patient is not moving his right arm. Patient has nonpurposeful minimal movements of the right lower leg TRAVEL OUTSIDE OF THE [place] IN LAST 30 DAYS: No - Related Data Allergies/Adverse Reactions: Penicillins Allergy (Verified 01/03/18 12:36) Past Medical History - Social History Smoking Status: Unknown if Ever Smoked Family History: None - Past Medical History Cardiac Medical History: Reports: Hx Coronary Artery Disease, Hx Hypertension Denies: Hx Heart Attack Pulmonary Medical History: Denies: Hx Asthma, Hx Bronchitis, Hx COPD, Hx Pneumonia Neurological Medical History: Reports: Hx Seizures. Denies: Hx Cerebrovascular Accident Renal/ Medical History: Denies: Hx Peritoneal Dialysis Musculoskeletal Medical History: Denies Hx Arthritis - Immunizations Hx Diphtheria, Pertussis, Tetanus Vaccination: Yes Course - Re-evaluation Re-evalutation: 12/01/18 12:08 Given the patient's initial tachycardia of around 250 upon arrival, patient was not immediately extricated to CT scan. Blood pressure manually was stable at around 180/120. Heart rate appeared to be in SVT, narrow and regular. Adenosine 6 followed by adenosine 12 had little effect. We did provide a Ca rdizem 20 bolus with resolution of the SVT. Patient did russ down to 40 but did not lose pulses. NIH score is a 15 taken immediately upon arrival. Initial EKG showed heart of 242, SVT, narrow QRS, Repeat EKG showed heart of 106, sinus tachycardia, slight peak T waves, no ST elevation or depression. Given my concern for head bleed, 1 g of Keppra was provided. With the peak T waves not knowing the patient's baseline creatinine, I did provide a dose of calcium gluconate. Given the patient's unstable heart rate, not following commands, agitated, I did electively RSI the patient without complication. Patient placed on a propofol drip. Patient is currently being taken to CT scan after we advanced the tube from the x-ray results of the initial x-ray. 12/01/18 12:38 Radiologist called me back and states that she sees multiple metastatic lesions to the brain. I have provided Decadron 10 mg IV. Given the multiple intracranial lesions I do not believe that the patient is a TPA candidate. I have called [facility] for further instructions with the neurologist and for transfer as well. I did call to [facility] neurology and spoke to Dr. Rob. 12/01/18 13:05 Patient has been accepted to the [facility] neuro ICU. - Laboratory Result Diagrams: 12/01/18 11:38 12/01/18 11:38 Laboratory results interpreted by me: 12/01/18 12/01/18 11:38 11:38 Hct 51.8 H MCV 115 H MCH 37.0 H RDW 16.5 H Potassium 3.5 L Carbon Dioxide 9 L* Anion Gap 32 H Glucose 202 H AST 89 H Procedures - Intubation Orotracheal Airway evaluation: Normal anatomy Mallampati Classification: Class 2 Intubation method: Orotracheal Blade size: 4 Equipment used: Glidescope ETT size: 8.0 ETT secured at: Teeth ETT secured at (cm): 25 Breath Sounds after Intubation: Equal Intubation Complications: No complications Critical Care Note - Critical Care Note Total time excluding time spent on procedures (mins): 75 Discharge - Discharge Clinical Impression: Brain metastases, Seizure Altered mental status Qualifiers: Altered mental status type: unspecified Qualified Code(s): R41.82 - Altered mental status, unspecified Condition: Critical Disposition: [facility] Referrals: SRIDHAR ORTIZ MD [Primary Care Provider] - Follow up as needed
[2018-12-01] MEDS ORDERED: SUCCINYLCHOLINE CHLORIDE INJ 200 MG/10 ML VIAL ONE (12:14)
[2018-12-01 12:18] LABS: HEMATOCRIT 51.8 % (37.9-51.0); HEMOGLOBIN 16.7 g/dL (13.5-17.0); MEAN CORPUSCULAR HGB CONC 32.2 g/dL (32.0-36.0); RED BLOOD COUNT 4.51 10^6/uL (4.35-5.55); RED CELL DISTRIBUTION WIDTH 16.5 % (11.5-14.0); WHITE BLOOD COUNT 8.9 10^3/uL (4.0-10.5)
[2018-12-01 12:25] LABS: ALBUMIN 4.7 g/dL (3.5-5.0); ALKALINE PHOSPHATASE 87 U/L (38-126); ASPARTATE AMINO TRANSFERASE 89 U/L (17-59); BILIRUBIN,DIRECT 0.3 mg/dL (0.0-0.4); BILIRUBIN,TOTAL 0.8 mg/dL (0.2-1.3); BLOOD UREA NITROGEN 13 mg/dL (7-20); CALCIUM 9.6 mg/dL (8.4-10.2); GLUCOSE 202 mg/dL (75-110); POTASSIUM 3.5 mmol/L (3.6-5.0); TOTAL PROTEIN 7.6 g/dL (6.3-8.2)
--- NOTE | 2018-12-01 12:26 | RADIOLOGY REPORT (SQ) ---
EXAM DESCRIPTION: CHEST SINGLE VIEW COMPLETED DATE/TIME: 12/01/2018 12:11 pm REASON FOR STUDY: tr2; s/p intubation COMPARISON: PET-CT 09/09/2018 AP chest 01/08/2018 EXAM PARAMETERS: NUMBER OF VIEWS: One view. TECHNIQUE: Single frontal radiographic view of the chest acquired. RADIATION DOSE: NA LIMITATIONS: None. FINDINGS: There is an endotracheal tube with the tip above the clavicular heads, about 10 cm above t he donal. This report was called to Dr. Hagan in the emergency room, 1210 hours 12/01/2018. Nasogastric tube tip and side port in the stomach. EKG leads and defibrillator pads over the chest. LUNGS AND PLEURA: Malignant mass in the right lower lobe is significantly smaller, now about 3 cm in diameter (was about 8.5 cm diameter on plain films 01/08/2018). No acute infiltrates. No pleural effusion or pneumothorax. No gross pulmonary edema. MEDIASTINUM AND HILAR STRUCTURES: No masses. Contour normal. HEART AND VASCULAR STRUCTURES: Heart normal in size. Normal vasculature. BONES: No acute findings. HARDWARE: As above OTHER: No other significant finding. IMPRESSION: Endotracheal tube too high, above the level of clavicles. Report called to the emergenc y room as above Decrease in size of right lower lobe lung mass No acute infiltrates TECHNICAL DOCUMENTATION: JOB ID: [id number] [employer]- All Rights Reserved Reading location - IP/workstation name: [email or web address]
[2018-12-01 12:30] LABS: CHLORIDE 102 mmol/L (98-107)
[2018-12-01] MEDS ORDERED: DEXAMETHASONE SOD PHOS INJ 10 MG/1 ML VIAL PO ONE (12:37)
[2018-12-01 12:39] LABS: ANION GAP 32 (5-19)
[2018-12-01 12:40] LABS: CARBON DIOXIDE 9 mmol/L (22-30)
[2018-12-01 12:41] LABS: ABSOLUTE LYMPHOCYTES# (MANUAL) 2.7 10^3/uL (0.5-4.7); ABSOLUTE MONOCYTES # (MANUAL) 1.2 10^3/uL (0.1-1.4); BASOPHILS % (MANUAL) 0 % (0-2); EOSINOPHILS % (MANUAL) 0 % (0-6); LYMPHOCYTES % (MANUAL) 28 % (13-45); MONOCYTES % (MANUAL) 13 % (3-13); SEGMENTED NEUTROPHILS % (MAN) 57 % (42-78); TOTAL CELLS COUNTED 100
[2018-12-01 12:43] LABS: ANISOCYTOSIS 1+; SMUDGE CELLS PRESENT
--- NOTE | 2018-12-01 12:43 | RADIOLOGY REPORT (SQ) ---
EXAM DESCRIPTION: CT HEAD WITHOUT COMPLETED DATE/TIME: 12/01/2018 12:20 pm REASON FOR STUDY: tr2; ams COMPARISON: CT brain 12/01/2017, 10/21/2010 PET-CT 09/09/2018 TECHNIQUE: Axial images acquired through the brain without intravenous contrast. Images reviewed wi th bone, brain and subdural windows. Additional sagittal and coronal reconstructions were generated. Images stored on PACS. All CT scanners at this facility use dose modulation, iterative reconstruction, and/or weight based d osing when appropriate to reduce radiation dose to as low as reasonably achievable (ALARA). [facility]: Dose Right [facility]: CareDose [facility]: Dose Right [facility]: Teradose 4D [facility]: [employer] RADIATION DOSE: CT Rad equipment meets quality standard of care and radiation dose reduction techniq ues were employed. CTDIvol: 53.2 mGy. DLP: 1017 mGy-cm. mGy. LIMITATIONS: Motion artifact throughout the study FINDINGS: Motion artifact degrades the study. On images without motion artifact, there are multiple hyperdense brain parenchymal metastatic lesions , new compared to prior CT 12/01/2017 as follows: Right occipital lobe 1.8 cm axial image 14 Left posterior temporal deep periventricular white matter 13 mm in size axial image 19 Right frontal deep periventricular white matter bulging into the ventricle, 2 cm in size axial image 23 Left posterior frontal cortex 1.6 cm axial image 28, 1.1 cm in size axial image 27. Patient is post remote prior right posterior frontal craniotomy with resection of the multi cystic me tastatic lesion seen 12/01/2017. No local recurrence deep to the craniotomy flap. No gross midline shift. No acute hemorrhage. Metastatic lesions exhibit a halo of edema and mild lo [place]te[place] mass effect. Findings were discussed with Dr. Pacheco in the emergency room, 1220 hours 12/01/2018. IMPRESSION: Multiple brain metastatic lesions as above. Study is limited by patient motion artifact EVIDENCE OF ACUTE STROKE: NO. COMMENT: Quality ID # [id number]: Final reports with documentation of one or more dose reduction techniques (e.g., Automated exposure control, adjustment of the mA and/or kV according to patient size, use of iterative reconstruction technique) TECHNICAL DOCUMENTATION: JOB ID: [id number] [employer]- All Rights Reserved Reading location - IP/workstation name: [email or web address]
[2018-12-01 12:44] LABS: PLATELET CLUMPS PRESENT; PLATELET COMMENT ADEQUATE
--- NOTE | 2018-12-01 12:44 | ER Document Report ---
ED NIH Stroke Scale - NIH Stroke Scale When completed:: Before Alteplase *: 1. NIH scale should be completed with appropriate accompanying assessment tools. *: 2. The NIH should reflect what the patient is capable of doing and should not be coached by the clinician. 1a. Level of Consciousness: 0=Alert;keenly responsive -: 1=Drowsy -: 2=Obtunded -: 3=Coma/unresponsive or reflex to noxious stimuli. 1a. Responses: 1 1b. Orientation Questions: a. What month is it? -: b. How old are you? -: 0=Answers both questions correctly. -: 1=Answers one question correctly or patient is intubated or has orotracheal trauma. -: 2=Answers neither question correctly. 1b. Responses: 2 1c. Response to commands: a. Open and close eyes? -: b. Traveling Inventory Associate and release hand? -: Credit is given despite weakness. Demonstration of task is permitted. Substitute command if hands cannot be used. -: 0=Performs both tasks correctly -: 1=Performs one task correctly -: 2=Performs neither task correctly 1c. Responses: 1 2. Gaze: Establish eye contact and instruct patient to "Follow my finger" -: 0=Normal -: 1=Partial gaze palsy. Gaze is abnormal in one or both eyes, but where forced deviation or total gaze paresis is not present. -: 2=Forced deviation or total gaze paresis. 2. Responses: 2 3. Visual Subramanian: Sees fingers in all four quadrants. -: 0=No visual loss. -: 1=Partial hemianopsia. -: 2=Complete hemianopsia. -: 3=Bilateral hemianopsia (including Cortical blindness) 4. Facial Movement: Instruct patient to: -: a. Show me your teeth -: b. Raise your eyebrows -: c. Close your eyes -: d. Smile -: 0=Normal symmetrical movement -: 1=Minor paralysis (flattened nasolabial fold, asymmetry on smiling). -: 2=Partial paralysis (total or near total paralysis of lower face). -: 3=Complete paralysis of upper and lower face 4. Responses: 0 5. Motor functions (left arm): Alternate sides and extend each arm with palms do wn (90 degrees if sitting or 45 degrees for supine). -: 0=No drift;limb holds for full 10 seconds. -: 1=Drift; limb holds but drifts down before full 10 seconds, but does not hit bed. -: 2=Some effort against gravity; limb cannot get to or maintain position. -: 3=No effort against gravity; limb falls. -: 4=No movement. -: UN=Amputation, joint fusion, explain in comments. 5. Responses (left arm): 0 5. Motor Functions (right arm): Alternate sides and extend each arm with palms down (90 degrees if sitting or 45 degrees for supine). -: 0=No drift;limb holds for full 10 seconds. -: 1=Drift; limb holds but drifts down before full 10 seconds, but does not hit bed. -: 2=Some effort against gravity; limb cannot get to or maintain position. -: 3=No effort against gravity; limb falls. -: 4=No movement. -: UN=Amputation, joint fusion, explain in comments. 5. Responses (right arm): 4 6. Motor Functions (left leg): With patient lying supine, alternate sides and extend each leg (30 degrees always while supine). -: 0=No drift, leg holds position for full 5 seconds -: 1=Drift; leg falls before full 5 seconds but does not hit bed. -: 2=Some effort against gravity, leg falls to bed but some effort against gravity. -: 3=No effort against gravity, leg falls to bed immediately. -: 4=No movement. -: UN=Amputation, joint fusion; explain in comments. 6. Responses (left leg): 0 6. Motor Functions (right leg): With patient lying supine, alternate sides and extend each leg (30 degrees always while supine). -: 0=No drift, leg holds position for full 5 seconds -: 1=Drift; leg falls before full 5 seconds but does not hit bed. -: 2=Some effort against gravity, leg falls to bed but some effort against gravity. -: 3=No effort against gravity, leg falls to bed immediately. -: 4=No movement. -: UN=Amputation, joint fusion; explain in comments. 6. Responses (right leg): 2 7. Limb Ataxia: With eyes open instruct patient to: -: a. "Touch your finger to your nose". -: b. "Touch your heel to your campos" -: 0=Absent -: 1=Present in one limb. -: 2=Present in two limbs. -: UN=Amputation or joint fusion; explain in comments. 7. Responses: 0 8. Sensory: Test sensation using pinprick or noxious stimuli. Test as many body parts as possible. -: 0=Normal;no sensory loss -: 1=Mile to moderate sensory loss (patient feels pin prick but is less sharp on affected side). -: 2=Severe or total sensory loss. 8. Responses: 0 9. Best Language: Instruct patient to: -: a. "Describe what you see in this picture." -: b. "Name the items in this picture." -: c. "Read these sentences." -: 0=No aphasia, normal -: 1=Mild to moderate aphasia. -: 2=Severe aphasia -: 3=Mute, global aphasia, no usable speech or auditory comprehension. 9. Responses: 1 10. Articulation, Dysarthia: Instruct patient to: -: "Read these words" or "Repeat these words" -: 0=Normal -: 1=Mild to moderate; patient may slur some words but can be understood without difficulty. -: 2=Severe; patients speech so slurred as to be unintelligible in the absence of dysphasia. -: UN=Intubated or other physical barrier, explain in comments. 10. Responses: 2 11. Extinction or inattention: 0=No abnormality -: 1= Visual, tactile, auditory, spatial, or personal inattention or extinction to bilateral simulation in one or the sensory modalities. -: 2=Profound jose enrique-inattention or jose enrique-inattention to more than one modality; does not recognize own hand. 11. Responses: 0 Total Score: 15
[2018-12-01 12:45] LABS: MEAN CORPUSCULAR VOLUME 115 fl (80-97); PLATELET COUNT 208 10^3/uL (150-450)
[2018-12-01 14:36] VITALS: BP 95/73
--- NOTE | 2018-12-02 00:17 | EKG REPORT ---
SEVERITY:- ABNORMAL ECG - ATRIAL FIBRILLATION : Confirmed by: Jake Perez 02-Dec-2018 00:17:23
--- NOTE | 2018-12-02 00:18 | EKG REPORT ---
SEVERITY:- ABNORMAL ECG - SUPRAVENTRICULAR TACHYCARDIA BORDERLINE RIGHT AXIS DEVIATION REPOLARIZATION ABNORMALITY, PROB RATE RELATED : Confirmed by: Jake Perez 02-Dec-2018 00:17:54
--- NOTE | 2018-12-02 00:18 | EKG REPORT ---
SEVERITY:- BORDERLINE ECG - SINUS TACHYCARDIA BORDERLINE PROLONGED QT INTERVAL : Confirmed by: Jake Perez 02-Dec-2018 00:17:36
[2018-12-03 17:03] LABS: PATH REVIEW PATHOLOGIST REVIEWED
== END 2018-12-01 13:50 | disposition short-term general hospital (02) ==
LOC: ER 11:32
PROC: 0BH17EZ Insertion of Endotracheal Airway into Trachea, Via Natural or Artificial Opening (ICD-10-PCS; principal; 2018-12-01)
DX: C34.90 Malignant neoplasm of unspecified part of unspecified bronchus or lung (principal); C79.31 Secondary malignant neoplasm of brain; R56.9 Unspecified convulsions; R41.0 Disorientation, unspecified; R42 Dizziness and giddiness; R29.715 NIHSS score 15; Z79.899 Other long term (current) drug therapy
CPT/HCPCS: 93005; 99291; 99292; 96361; 96375; 96365; 36415; 83690; 85025; 80053; 84484; 71045; 70450; 94660; 93010; 31500; A4315; J0610; J2704; J3490; J0330; J7030; J0153; J1100; J1953; 94002

== ENCOUNTER 2018-12-14 10:04 | Emergency (ER) | payer OTHER ==
[2018-12-14 10:42] LABS: ALBUMIN 3.8 g/dL (3.5-5.0); ALCOHOL < 10 mg/dL (NONE DETECTED); ALKALINE PHOSPHATASE 75 U/L (38-126); ANION GAP 9 (5-19); ASPARTATE AMINO TRANSFERASE 56 U/L (17-59); BILIRUBIN,DIRECT 0.2 mg/dL (0.0-0.4); BILIRUBIN,TOTAL 0.4 mg/dL (0.2-1.3); BLOOD UREA NITROGEN 12 mg/dL (7-20); CALCIUM 8.9 mg/dL (8.4-10.2); CARBON DIOXIDE 24 mmol/L (22-30); CHLORIDE 105 mmol/L (98-107); GLUCOSE 96 mg/dL (75-110); POTASSIUM 3.9 mmol/L (3.6-5.0); TOTAL PROTEIN 6.8 g/dL (6.3-8.2)
[2018-12-14 11:06] LABS: ABSOLUTE BASOPHILS # (AUTO) 0.1 10^3/uL (0.0-0.2); ABSOLUTE LYMPHOCYTES (AUTO) 1.2 10^3/uL (0.5-4.7); ABSOLUTE MONOCYTES (AUTO) 0.8 10^3/uL (0.1-1.4); ABSOLUTE NEUT (AUTO) 8.5 10^3/uL (1.7-8.2); BASOPHILS % (AUTO) 0.7 % (0-2); EOSINOPHILS % (AUTO) 0.2 % (0-6); HEMATOCRIT 43.8 % (37.9-51.0); HEMOGLOBIN 15.3 g/dL (13.5-17.0); LYMPHOCYTES % (AUTO) 11.5 % (13-45); MEAN CORPUSCULAR HEMOGLOBIN 37.3 pg (27.0-33.4); MEAN CORPUSCULAR HGB CONC 35.1 g/dL (32.0-36.0); MONOCYTES % (AUTO) 7.7 % (3-13); PLATELET COUNT 239 10^3/uL (150-450); RED BLOOD COUNT 4.11 10^6/uL (4.35-5.55); RED CELL DISTRIBUTION WIDTH 15.3 % (11.5-14.0); SEGMENTED NEUTROPHILS % (AUTO) 79.9 % (42-78); TOTAL CELLS COUNTED % (AUTO) 100 %; WHITE BLOOD COUNT 10.6 10^3/uL (4.0-10.5)
[2018-12-14 11:11] LABS: MEAN CORPUSCULAR VOLUME 107 fl (80-97)
--- NOTE | 2018-12-14 12:01 | ER Document Report ---
ED Neuro Symptoms/Deficit - General Chief Complaint: Tremor Stated Complaint: POSSIBLE SEIZURE Time Seen by Provider: 12/14/18 11:43 Primary Care Provider: SRIDHAR ORTIZ MD [Primary Care Provider] - Follow up as needed Mode of Arrival: Medic Information source: Patient, Relative TRAVEL OUTSIDE OF THE [place] IN LAST 30 DAYS: No - HPI Patient complains to provider of: Other - Pt. 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 states pt. was shaking all over and called EMS for transport here. There was no fecal or urinary incontinence and no tongue biting. Unsure if pt. was post-ictal. Pt is currently receiving radiation therapy in [place] and will be starting chemo soon. - Related Data Allergies/Adverse Reactions: Penicillins Allergy (Verified 01/03/18 12:36) Home Medications: allopurinol. atorvastatin. dexamethsone. metformin. ondansetron Past Medical History - General Information source: Patient, Relative - Social History Smoking Status: Current Every Day Smoker Frequency of alcohol use: Social Drug Abuse: None Family History: None Patient has suicidal ideation: No Patient has homicidal ideation: No - Past Medical History Cardiac Medical History: Reports: Hx Coronary Artery Disease, Hx Hypertension Denies: Hx Heart Attack Pulmonary Medical History: Denies: Hx Asthma, Hx Bronchitis, Hx COPD, Hx Pneumonia Neurological Medical History: Reports: Hx Seizures. Denies: Hx Cerebrovascular Accident Renal/ Medical History: Denies: Hx Peritoneal Dialysis Musculoskeletal Medical History: Denies Hx Arthritis - Immunizations Hx Diphtheria, Pertussis, Tetanus Vaccination: Yes Review of Systems - Review of Systems Constitutional: No symptoms reported EENT: No symptoms reported Cardiovascular: No symptoms reported Respiratory: No symptoms reported Gastrointestinal: No symptoms reported Musculoskeletal: No symptoms reported Neurological/Psychological: See HPI, Seizure -: Yes All other systems reviewed and negative Physical Exam - Vital signs Vitals: Resp Pulse Ox 24 H 97 12/14/18 10:16 12/14/18 10:16 - General General appearance: Appears well, Alert In distress: None - HEENT Head: Normocephalic Pupils: PERRL Mouth/Lips: Normal Mucous membranes: Normal Pharynx: Normal Neck: Normal - Respiratory Respiratory status: No respiratory distress Breath sounds: Normal - Cardiovascular Rhythm: Regular Heart sounds: Normal auscultation Murmur: No - Abdominal Bowel sounds: Normal Tenderness: Nontender - Extremities General upper extremity: Normal inspection General lower extremity: Normal inspection - Neurological Neuro grossly intact: Yes Cognition: Normal Orientation: AAOx4 Speech: Normal Cranial nerves: Normal Cerebellar coordination: Normal Motor strength normal: LUE, RUE, LLE, RLE 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 without further seizure activity in ED -- expressed desire to go home with - Vital Signs Vital signs: Temp Pulse Resp BP Pulse Ox 98.1 F 89 18 136/94 H 95 12/14/18 10:19 12/14/18 10:19 12/14/18 11:01 12/14/18 11:00 12/14/18 11:01 - Laboratory Result Diagrams: 12/14/18 10:54 12/14/18 09:54 Laboratory results interpreted by me: 12/14/18 12/14/18 10:54 12:13 WBC 10.6 H RBC 4.11 L MCV 107 H D MCH 37.3 H RDW 15.3 H Lymph % (Auto) 11.5 L Absolute Neuts (auto) 8.5 H Seg Neutrophils % 79.9 H Urine Blood MODERATE H Ur Leukocyte Esterase TRACE H - Diagnostic Test Radiology reviewed: Reports reviewed - head CT - multiple lesions with one new lesion not seen on prior CT Discharge - Discharge Clinical Impression: Seizure UTI (urinary tract infection) Qualifiers: Urinary tract infection type: acute cystitis Hematuria presence: without hematuria Qualified Code(s): N30.00 - Acute cystitis without hematuria Condition: Stable Disposition: HOME, SELF-CARE Instructions: Trimethoprim-Sulfa ([facility]), Urinary Tract Infection ([facility]) Additional Instructions: rest, take meds as prescribed, return if worse Prescriptions: Sulfamethoxazole/Trimethoprim [Bactrim Ds Tablet] 1 each PO BID #10 tablet Referrals: SRIDHAR ORTIZ MD [Primary Care Provider] - Follow up as needed
[2018-12-14 12:34] LABS: APPEARANCE,URINE CLEAR; BILIRUBIN,URINE NEGATIVE (NEGATIVE); COLOR,URINE YELLOW; GLUCOSE, URINE NEGATIVE (NEGATIVE); KETONES,URINE NEGATIVE (NEGATIVE); LEUKOCYTE ESTERASE,URINE TRACE (NEGATIVE); NITRITE,URINE NEGATIVE (NEGATIVE); PROTEIN,URINE NEGATIVE (NEGATIVE); URINE SPECIFIC GRAVITY 1.017; UROBILINOGEN,URINE NEGATIVE mg/dL (<2.0)
[2018-12-14 12:44] LABS: URINE AMPHETAMINES SCREEN NEGATIVE; URINE BARBITURATES SCREEN NEGATIVE; URINE BENZODIAZEPINES SCREEN NEGATIVE; URINE COCAINE SCREEN NEGATIVE; URINE MARIJUANA (THC) SCREEN NEGATIVE; URINE METHADONE SCREEN NEGATIVE; URINE PHENCYCLIDINE SCREEN NEGATIVE
--- NOTE | 2018-12-14 12:59 | RADIOLOGY REPORT (SQ) ---
EXAM DESCRIPTION: CT HEAD WITHOUT COMPLETED DATE/TIME: 12/14/2018 12:46 pm REASON FOR STUDY: seizure COMPARISON: 12/01/2018 TECHNIQUE: Axial images acquired through the brain without intravenous contrast. Images reviewed wi th bone, brain and subdural windows. Additional sagittal and coronal reconstructions were generated. Images stored on PACS. All CT scanners at this facility use dose modulation, iterative reconstruction, and/or weight based d osing when appropriate to reduce radiation dose to as low as reasonably achievable (ALARA). [facility]: Dose Right [facility]: CareDose [facility]: Dose Right [facility]: Teradose 4D [facility]: [employer] RADIATION DOSE: CT Rad equipment meets quality standard of care and radiation dose reduction techniq ues were employed. CTDIvol: 53.2 mGy. DLP: 1017 mGy-cm. mGy. LIMITATIONS: None. FINDINGS: Old right parietal craniotomy. Multiple hyperdense intra-axial lesions consistent with kn own metastatic disease. There is a new lesion in the right frontal lobe white matter measuring 10 mm but was not present on the prior. Remaining multiple hyperdense lesions are 5 for stable. Mild vas ogenic edema associated with a new lesion. No midline shift. No hemorrhage. IMPRESSION: Progressive brain metastasis. No hemorrhage. EVIDENCE OF ACUTE STROKE: NO. COMMENT: Quality ID # [id number]: Final reports with documentation of one or more dose reduction techniques (e.g., Automated exposure control, adjustment of the mA and/or kV according to patient size, use of iterative reconstruction technique) TECHNICAL DOCUMENTATION: JOB ID: [id number] [employer]- All Rights Reserved Reading location - IP/workstation name: [email or web address]
[2018-12-14 13:42] VITALS: BP 131/97
== END 2018-12-14 13:28 | disposition home or self-care (01) ==
LOC: ER 10:04
DX: R56.9 Unspecified convulsions (principal); N30.00 Acute cystitis without hematuria; C34.90 Malignant neoplasm of unspecified part of unspecified bronchus or lung; C79.31 Secondary malignant neoplasm of brain; F17.200 Nicotine dependence, unspecified, uncomplicated; I25.10 Atherosclerotic heart disease of native coronary artery without angina pectoris; I10 Essential (primary) hypertension; Z79.899 Other long term (current) drug therapy; Z79.84 Long term (current) use of oral hypoglycemic drugs; Z88.0 Allergy status to penicillin
CPT/HCPCS: 36415; 70450; 80053; 80307; 81001; 82962; 83735; 85025; 99284

== ENCOUNTER 2018-12-17 14:27 | Inpatient (IN) | payer OTHER ==
[2018-12-17] MEDS ORDERED: LORAZEPAM INJ 2 MG/1 ML VIAL IV ONE ×2 (15:51→17:14)
--- NOTE | 2018-12-17 15:51 | ER Document Report ---
Doctor's Note Notes: 12/17/18 15:49 63-year-old male with past medical history as recorded including metastatic lesions to his brain who I myself treated and intubated around a month ago he was set up today to have radiation to the brain who presents with his secondary to the onset Monday of some intermittent tremors to the right arm. He states it is intermittent, no aggravating relieving factors, with no pain. It is only to the right upper extremity. It is not propagating to any other extremity. No headache, neck pain, chest pain, fevers, abdominal pain, vomiting, or diarrhea. On examination patient is sitting up pleasant no acute distress. Answers all questions appropriately. CN II through XII are intact. Heart and lung examination is unremarkable some slight tachycardia. Abdomen is soft and nontender. Patient appears to have arrhythmia genic right arm involuntary tremors. No tremors to any other extremity. No swelling to the right upper extremity with excellent distal pulses. Given the above history and physical I am concerned about the possibility of a partial colonic tonic seizure of the right upper extremity secondary to most likely a brain lesion. We will call the patient's oncologist and obtain basic labs as well as Ativan and a CT scan of the head.
[2018-12-17 16:21] LABS: APPEARANCE,URINE CLEAR; BILIRUBIN,URINE NEGATIVE (NEGATIVE); COLOR,URINE YELLOW; GLUCOSE, URINE NEGATIVE (NEGATIVE); KETONES,URINE NEGATIVE (NEGATIVE); LEUKOCYTE ESTERASE,URINE NEGATIVE (NEGATIVE); NITRITE,URINE NEGATIVE (NEGATIVE); PROTEIN,URINE NEGATIVE (NEGATIVE); URINE SPECIFIC GRAVITY 1.016; UROBILINOGEN,URINE NEGATIVE mg/dL (<2.0)
[2018-12-17 16:39] LABS: ABSOLUTE MONOCYTES (AUTO) 0.7 10^3/uL (0.1-1.4); ABSOLUTE NEUT (AUTO) 6.6 10^3/uL (1.7-8.2); BASOPHILS % (AUTO) 0.5 % (0-2); EOSINOPHILS % (AUTO) 0.2 % (0-6); HEMATOCRIT 40.8 % (37.9-51.0); HEMOGLOBIN 14.2 g/dL (13.5-17.0); MEAN CORPUSCULAR HEMOGLOBIN 36.9 pg (27.0-33.4); MEAN CORPUSCULAR HGB CONC 34.9 g/dL (32.0-36.0); MEAN CORPUSCULAR VOLUME 106 fl (80-97); MONOCYTES % (AUTO) 8.1 % (3-13); PLATELET COUNT 239 10^3/uL (150-450); RED BLOOD COUNT 3.85 10^6/uL (4.35-5.55); RED CELL DISTRIBUTION WIDTH 15.1 % (11.5-14.0); SEGMENTED NEUTROPHILS % (AUTO) 79.2 % (42-78); TOTAL CELLS COUNTED % (AUTO) 100 %; WHITE BLOOD COUNT 8.4 10^3/uL (4.0-10.5)
[2018-12-17 17:03] LABS: ALBUMIN 3.4 g/dL (3.5-5.0); ALKALINE PHOSPHATASE 69 U/L (38-126); ANION GAP 7 (5-19); ASPARTATE AMINO TRANSFERASE 53 U/L (17-59); BILIRUBIN,DIRECT 0.1 mg/dL (0.0-0.4); BILIRUBIN,TOTAL 0.3 mg/dL (0.2-1.3); BLOOD UREA NITROGEN 13 mg/dL (7-20); CARBON DIOXIDE 23 mmol/L (22-30); CHLORIDE 108 mmol/L (98-107); GLUCOSE 84 mg/dL (75-110); POTASSIUM 4.2 mmol/L (3.6-5.0); TOTAL PROTEIN 6.1 g/dL (6.3-8.2)
[2018-12-17] MEDS ORDERED: DEXAMETHASONE SOD PHOS INJ 10 MG/1 ML VIAL IV ONE (17:39)
--- NOTE | 2018-12-17 17:46 | ER Document Report ---
ED Neuro Symptoms/Deficit - General Chief Complaint: muscle cramps Stated Complaint: TREMORS Time Seen by Provider: 12/17/18 15:19 Notes: 63-year-old male with metastatic brain cancer presents to the emergency department for a rhythmic tremor on his left side. Patient was seen here approximately 2 weeks ago and transferred to [facility] to the neuro ICU after was discovered that he had a new frontal lesion after he presented with a generalized seizure. Patient was supposed to get his first round of radiation treatment to the brain today but symptoms precluded him from completing it. Patient states the symptoms are intermittent and started Monday no aggravating or relieving factors, no pain, patient states it is to the right upper extremity but he is having movement of his right lower extremity which he is attributing to the movement of his upper body. Patient denies any headache, vision changes, neck pain, chest pain, new fevers, acute shortness of breath, vomiting or diarrhea. TRAVEL OUTSIDE OF THE [place] IN LAST 30 DAYS: No - Related Data Allergies/Adverse Reactions: Penicillins Allergy (Verified 01/03/18 12:36) Past Medical History - Social History Smoking Status: Never Smoker Chew tobacco use (# tins/day): No Frequency of alcohol use: None Drug Abuse: None Family History: None Patient has suicidal ideation: No Patient has homicidal ideation: No - Past Medical History Cardiac Medical History: Reports: Hx Coronary Artery Disease, Hx Hypertension Denies: Hx Heart Attack Pulmonary Medical History: Denies: Hx Asthma, Hx Bronchitis, Hx COPD, Hx Pneumonia Neurological Medical History: Reports: Hx Seizures. Denies: Hx Cerebrovascular Accident Renal/ Medical History: Denies: Hx Peritoneal Dialysis Musculoskeletal Medical History: Denies Hx Arthritis - Immunizations Hx Diphtheria, Pertussis, Tetanus Vaccination: Yes Review of Systems - Review of Systems Constitutional: See HPI EENT: See HPI Cardiovascular: No symptoms reported Respiratory: No symptoms reported Gastrointestinal: No symptoms reported Genitourinary: No symptoms reported Male Genitourinary: No symptoms reported Musculoskeletal: No symptoms reported Skin: No symptoms reported Hematologic/Lymphatic: No symptoms reported Neurological/Psychological: No symptoms reported Physical Exam - Vital signs Vitals: Pulse Ox 95 12/17/18 14:46 - Notes Notes: PHYSICAL EXAMINATION: Reviewed vital signs and charting by RN GENERAL: Alert, interacts well. No acute distress. HEAD: Normocephalic, atraumatic. EYES: Pupils equal and round. Extraocular movements intact. ENT: Oral mucosa moist, tongue midline. NECK: Full range of motion. Trachea midline. LUNGS: Clear to auscultation bilaterally, no wheezes, rales, or rhonchi. No respiratory distress. HEART: Regular rate and rhythm. No murmur ABDOMEN: soft, non-tender. No distention. Bowel sounds present EXTREMITIES: Moves all 4 extremities spontaneously. Patient with rhythmic movement of his right upper extremity, no edema, No cyanosis. PSYCH: Normal affect, normal mood. SKIN: Warm, dry, normal turgor. No rashes or lesions noted. Course - Re-evaluation Re-evalutation: 12/17/18 17:44 Patient does not appear to be in distress but is having persistent rhythmic movement of his right upper extremity. Dr. Patel, attending, assessed the patient feels that he may be having a partial seizure. Patient was given Ativan 2 mg IV once which significantly reduce the symptoms but there is still present. Patient then received Ativan 1 mg IV once and I also ordered dexamethasone 8 mg IV once. Plan is to get a CT head once he is able to complete the imaging without too much movement. I did speak with Dr. Martinez, heme-onc, recommended he be on Keppra and dexamethasone. Patient is Alcon on Keppra and I did initiate dexamethasone IV. Spoke with radiation, they came down, and plan is to abort treatment today as they were willing to work with him but he will not be done here in the emergency department and they will initiate the first treatment tomorrow. CT head is still pending. 12/17/18 18:[address] Chong after speaking with Dr. Martinez again. Dr. Martinez is okay that the patient gets admitted with her consulting. Dr. Amato admitted patient to the [facility]. - Vital Signs Vital signs: Temp Pulse Resp BP Pulse Ox 97.6 F 28 H 114/85 97 12/17/18 14:49 12/17/18 16:01 12/17/18 16:01 12/17/18 16:01 - Laboratory Result Diagrams: 12/17/18 16:20 12/17/18 16:20 Laboratory results interpreted by me: 12/17/18 12/17/18 16:20 16:20 RBC 3.85 L MCV 106 H MCH 36.9 H RDW 15.1 H Lymph % (Auto) 12.0 L Seg Neutrophils % 79.2 H Chloride 108 H Total Protein 6.1 L Albumin 3.4 L Discharge - Discharge Clinical Impression: Partial seizure, Metastatic cancer to brain of unknown cell type Condition: Stable Disposition: ADMITTED INPATIENT Admitting Provider: Arlette (Hospitalist) Unit Admitted: [facility]
[2018-12-17] MEDS ORDERED: ACETAMINOPHEN 325 MG TABLET PO PRN (18:23)
[2018-12-17] MEDS ORDERED: ONDANSETRON HCL INJ/PF 4 MG/2 ML SDV IV PRN (18:23)
[2018-12-17] MEDS ORDERED: IPRATROPIUM/ALBUTEROL 0.5-2.5 MG/3 ML AMPUL NEB PRN (18:23)
[2018-12-17] MEDS ORDERED: OXYCODONE-ACETAMINOPHEN 5-325 MG TABLET PO PRN (18:23)
[2018-12-17] MEDS ORDERED: HYDRALAZINE HCL INJ/PF 20 MG/1 ML SDV IV PRN (18:56)
--- NOTE | 2018-12-17 19:12 | PDOC H&P ---
History of Present Illness History of Present Illness: SAQIB HILLS is a 63 year old male seizure disorder, metastatic lung cancer to brain. Source of history is who is at the bedside as patient is too somnolent because of receiving multiple dose of benzodiazepines for seizure. Patient had his first seizure disorder 2017 due to brain metastasis caused by metastatic lung cancer. Patient was seizure-free for a year but on December 01, 2018 had another seizure and a brain CT and brain MRI showed multiple new brain metastasis. At baseline patient is able to ambulate and do most of the ADLs but today this afternoon noticed that he was having twitches on the right upper and lower extremity and brought into ED to be evaluated. In route to ED patient was given benzodiazepines. Given his history of seizure metastatic brain cancer Dr. Martinez who is his oncologist was called who suggested for patient to be admitted for observation. On my encounter patient is sleeping, easily arousable however very somnolent and does not provide much information, he has an involuntary twitching of his right upper extremity, cannot hold right upper and lower extremity against gravity. As per who is a source of history patient has not been complaining of any fever, chills, nausea, vomiting, diarrhea, constipation or any urinary symptoms. Patient is still smokes and uses EtOH daily. Past Medical History Cardiac Medical History: Reports: Coronary Artery Disease, Hypertension Denies: Myocardial Infarction Pulmonary Medical History: Denies: Asthma, Bronchitis, Chronic Obstructive Pulmonary Disease (COPD), Pneumonia Neurological Medical History: Reports: Seizures Musculoskeltal Medical History: Denies: Arthritis Hematology: Denies: Anemia Social History Smoking Status: Never Smoker Electronic Cigarette use?: No Family History Family History: None Parental Family History Reviewed: Yes Children Family History Reviewed: Yes Sibling(s) Family History Reviewed.: Yes Medication/Allergy Home Medications: Atorvastatin Calcium [Lipitor 40 mg Tablet] 40 mg PO QHS 01/08/18 Dexamethasone [Decadron 4 Mg Tablet] 2 mg PO BID 01/08/18 Ergocalciferol (Vitamin D2) [Vitamin D2] 50,000 unit PO ASDIR PRN 01/08/18 Levetiracetam [Keppra] 1,000 mg PO BID 01/08/18 Metformin HCl [Metformin HCl ER] 500 mg PO DAILY 01/08/18 Nifedipine [Nifedipine ER] 60 mg PO DAILY 11/26/18 Sulfamethoxazole/Trimethoprim [Bactrim Ds Tablet] 1 each PO BID #10 tablet 12/14/18 Allergies/Adverse Reactions: Penicillins Allergy (Verified 01/03/18 12:36) Review of Systems ROS unobtainable: Due to mental status Physical Exam Vital Signs: Temp Pulse Resp BP Pulse Ox 97.6 F 28 H 114/85 97 12/17/18 14:49 12/17/18 16:01 12/17/18 16:01 12/17/18 16:01 Intake & Output 12/16/18 12/17/18 12/18/18 06:59 06:59 06:59 Weight 73.028 kg General appearance: PRESENT: no acute distress, well-developed, well-nourished, other - Somnolent Head exam: PRESENT: atraumatic, normocephalic Respiratory exam: PRESENT: clear to auscultation roman. ABSENT: rales, rhonchi, wheezes Cardiovascular exam: PRESENT: RRR. ABSENT: diastolic murmur, rubs, systolic murmur GI/Abdominal exam: PRESENT: normal bowel sounds, soft. ABSENT: distended, guarding, mass, organolmegaly, rebound, tenderness Extremities exam: PRESENT: full ROM. ABSENT: calf tenderness, clubbing, pedal edema Neurological exam: PRESENT: awake, oriented to person, oriented to place, CN II- XII grossly intact, other - Involuntary twitching of the right upper extremity. Right upper and lower extremity strength 0/5.. ABSENT: motor sensory deficit Results Laboratory Results: 12/17/18 16:20 12/17/18 16:20 12/17/18 12/17/18 12/17/18 15:59 16:20 16:20 WBC 8.4 RBC 3.85 L Hgb 14.2 Hct 40.8 MCV 106 H MCH 36.9 H MCHC 34.9 RDW 15.1 H Plt Count 239 Seg Neutrophils % 79.2 H Sodium 137.6 Potassium 4.2 Chloride 108 H Carbon Dioxide 23 Anion Gap 7 BUN 13 Creatinine 0.85 Est GFR ( Amer) > 60 Glucose 84 Calcium 9.0 Magnesium Total Bilirubin 0.3 AST 53 Alkaline Phosphatase 69 Total Protein 6.1 L Albumin 3.4 L Urine Color YELLOW Urine Appearance CLEAR Urine pH 5.0 Ur Specific [place] 1.016 Urine Protein NEGATIVE Urine Glucose (UA) NEGATIVE Urine Ketones NEGATIVE Urine Blood NEGATIVE Urine Nitrite NEGATIVE Ur Leukocyte Esterase NEGATIVE Urine WBC (Auto) 8 Urine RBC (Auto) 0 12/17/18 16:20 WBC RBC Hgb Hct MCV MCH MCHC RDW Plt Count Seg Neutrophils % Sodium Potassium Chloride Carbon Dioxide Anion Gap BUN Creatinine Est GFR ( Amer) Glucose Calcium Magnesium 1.6 Total Bilirubin AST Alkaline Phosphatase Total Protein Albumin Urine Color Urine Appearance Urine pH Ur Specific [place] Urine Protein Urine Glucose (UA) Urine Ketones Urine Blood Urine Nitrite Ur Leukocyte Esterase Urine WBC (Auto) Urine RBC (Auto) Assessment and Plan - Diagnosis (1) Hemiplegia Qualifiers: Hemiplegia type: flaccid Hemiplegia etiology: unspecified etiology Hemiplegia laterality: right dominant side Qualified Code(s): 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 As per patient has multiple worsening metastatic cancer last one on the frontal lobe in the span of weeks. Not sure if his hemiplegia is due to CVA or due to worsening metastatic brain cancer. CT head pending at the time of dictation. Admit to IMCU, seizure precaution, fall precaution, aspiration precaution. Keppra 1500 mg p.o. twice daily, dexamethasone 4 mg p.o. every 6. PT ST OT. Will make decision on antiplatelets, statins after CT results are available. (2) Lung cancer metastatic to brain Is this a current diagnosis for this admission?: Yes Plan: As per #1. (3) Partial seizure Is this a current diagnosis for this admission?: Yes Plan: Likely due to metastatic brain cancer. Admit to ICU, Keppra IV, dexamethasone IV, PRN Ativan, seizure, fall, aspiration precautions. (4) Tobacco abuse Is this a current diagnosis for this admission?: Yes Plan: Advised on abstinence. NicoDerm patch will be provided. (5) ETOH abuse Is this a current diagnosis for this admission?: Yes Plan: Admit to ICU, DT precautions. Start on D5, folic acid, thiamine, and multivitamins.
[2018-12-17] MEDS ORDERED: NORMAL SALINE 1000 ML 1,000 ML with POTASSIUM CHLORIDE 20 MEQ, MAGNESIUM SULFATE 8 MEQ,... IV ONE ×10 (20:00→21:00)
[2018-12-17] MEDS: LEVETIRACETAM 1500 MG/NACL-ISO 1,500 MG/100 ML RTUPB IV SCH (20:16)
[2018-12-17] MEDS: LORAZEPAM INJ 2 MG/1 ML VIAL IV PRN (22:16)
[2018-12-17] MEDS: FAMOTIDINE 20 MG TABLET PO SCH (22:16)
[2018-12-17] MEDS: HEPARIN SOD (PORCINE) 5,000 UNIT/ML 1 ML VIAL SUBCUT SCH (22:16)
[2018-12-17] MEDS: DEXAMETHASONE SOD PHOS INJ 10 MG/1 ML VIAL IV SCH ×2 (23:45→23:46)
[2018-12-18] MEDS ORDERED: DEXTROSE 40% GEL 15 GM TUBE PO PRN (01:00)
[2018-12-18] MEDS ORDERED: DEXTROSE 50%-WATER SYRINGE 25 GM/50 ML DOSE IV PRN (01:00)
[2018-12-18] MEDS ORDERED: DEXTROSE 40% GEL 15 GM TUBE X 2 PO PRN (01:00)
[2018-12-18] MEDS ORDERED: GLUCAGON,HUMAN RECOMB 1 MG INJ IM PRN (01:00)
[2018-12-18] MEDS ORDERED: DEXTROSE 50%-WATER SYRINGE 12.5 GM/25 ML DOSE IV PRN (01:00)
[2018-12-18] MEDS: HEPARIN SOD (PORCINE) 5,000 UNIT/ML 1 ML VIAL SUBCUT SCH ×3 (05:10→21:56)
[2018-12-18] MEDS: DEXAMETHASONE SOD PHOS INJ 10 MG/1 ML VIAL IV SCH ×3 (05:10→17:07)
[2018-12-18] MEDS: LORAZEPAM INJ 2 MG/1 ML VIAL IV PRN ×4 (05:16→14:58)
[2018-12-18 06:30] LABS: ABSOLUTE LYMPHOCYTES (AUTO) 0.5 10^3/uL (0.5-4.7); ABSOLUTE MONOCYTES (AUTO) 0.1 10^3/uL (0.1-1.4); ABSOLUTE NEUT (AUTO) 4.8 10^3/uL (1.7-8.2); BASOPHILS % (AUTO) 0.5 % (0-2); HEMATOCRIT 40.1 % (37.9-51.0); HEMOGLOBIN 13.9 g/dL (13.5-17.0); LYMPHOCYTES % (AUTO) 8.5 % (13-45); MEAN CORPUSCULAR HEMOGLOBIN 36.7 pg (27.0-33.4); MEAN CORPUSCULAR HGB CONC 34.6 g/dL (32.0-36.0); MEAN CORPUSCULAR VOLUME 106 fl (80-97); MONOCYTES % (AUTO) 1.4 % (3-13); PLATELET COUNT 234 10^3/uL (150-450); RED BLOOD COUNT 3.79 10^6/uL (4.35-5.55); RED CELL DISTRIBUTION WIDTH 15.1 % (11.5-14.0); SEGMENTED NEUTROPHILS % (AUTO) 89.6 % (42-78); TOTAL CELLS COUNTED % (AUTO) 100 %; WHITE BLOOD COUNT 5.4 10^3/uL (4.0-10.5)
[2018-12-18 06:48] LABS: ALBUMIN 3.3 g/dL (3.5-5.0); ALKALINE PHOSPHATASE 65 U/L (38-126); ANION GAP 9 (5-19); ASPARTATE AMINO TRANSFERASE 44 U/L (17-59); BILIRUBIN,DIRECT 0.1 mg/dL (0.0-0.4); BILIRUBIN,TOTAL 0.4 mg/dL (0.2-1.3); BLOOD UREA NITROGEN 12 mg/dL (7-20); CALCIUM 8.8 mg/dL (8.4-10.2); CARBON DIOXIDE 20 mmol/L (22-30); CHLORIDE 107 mmol/L (98-107); GLUCOSE 195 mg/dL (75-110); POTASSIUM 4.3 mmol/L (3.6-5.0); TOTAL PROTEIN 5.9 g/dL (6.3-8.2)
[2018-12-18] MEDS: NORMAL SALINE 1000 ML 1,000 ML IV PRN (08:01)
--- NOTE | 2018-12-18 08:19 | PDOC CONSULTATION ---
Consultation Consult Date: 12/18/18 Provider Consulted: DIAZ GREGG Consult reason:: Hematology/Oncology consultation was requested for patient with lung cancer and brain mets with worsening seizures. 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 At presentation, he was found to have brain mets. He underwent resection of the brain lesion at [facility] 12/01/2017. He then started chemotherapy and completed a total of 11 cycles of carboplati n/irinotecan 10/03/2018. PET/CT 09/09/2018 showed improvement in lung lesions with no other evidence of disease. Nov 2018, he had new onset seizures and was evaluated at [facility] and found to have recurrent brain mets. He was scheduled to begin radiation to the brain yesterday. However, he presented to the ED with a 3 day history of tremors in his right arm. He was already taking Keppra for seizures, but was not on any dexamethasone. He states that he has been having worsening headaches. Today, he is feeling better, but continues to have right sided weakness. He is scheduled for radiation today. Past Medical History Cardiac Medical History: Reports: Coronary Artery Disease, Hyperlipidema, Hypertension Denies: Myocardial Infarction Pulmonary Medical History: Denies: Asthma, Bronchitis, Chronic Obstructive Pulmonary Disease (COPD), Pneumonia Neurological Medical History: Reports: Seizures Endocrine Medical History: Reports: Diabetes Mellitus Type 2 Malignancy Medical History: Reports: Lung Cancer, Other - brain mets Musculoskeltal Medical History: Denies: Arthritis Hematology: Denies: Anemia Past Surgical History Past Surgical History: Reports: Other - bronchoscopy with biopsy, brain tumor resection, colonoscopy Social History 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 Family History Parental Family History Reviewed: Yes - Mother age 70 DM and dementia. Father unknown Children Family History Reviewed: Yes Sibling(s) Family History Reviewed.: No Medication/Allergy Allergies/Adverse Reactions: Penicillins Allergy (Verified 01/03/18 12:36) Review of Systems Constitutional: PRESENT: headache(s). ABSENT: fever(s) Eyes: PRESENT: visual disturbances Ears: ABSENT: hearing changes Nose, Mouth, and Throat: ABSENT: sore throat Cardiovascular: ABSENT: chest pain Respiratory: ABSENT: dyspnea Gastrointestinal: ABSENT: nausea Genitourinary: ABSENT: dysuria Integumentary: ABSENT: rash Neurological: PRESENT: tremor(s), weakness Hematologic/Lymphatic: ABSENT: easy bleeding Physical Exam Vital Signs: Temp Pulse Resp BP Pulse Ox 97.7 F 80 18 135/81 H 97 12/18/18 07:39 12/18/18 07:39 12/18/18 07:39 12/18/18 07:39 12/18/18 07:39 Intake & Output 12/17/18 12/18/18 12/19/18 06:59 06:59 06:59 Intake Total 310 Output Total 600 Balance -290 Weight 75.1 kg General appearance: PRESENT: no acute distress, well-developed, well-nourished Exam: 63 year old male. Head exam: PRESENT: normocephalic Eye exam: PRESENT: EOMI Mouth exam: PRESENT: tongue midline Neck exam: ABSENT: lymphadenopathy, tenderness Respiratory exam: PRESENT: clear to auscultation roman, unlabored Cardiovascular exam: PRESENT: RRR GI/Abdominal exam: PRESENT: normal bowel sounds, soft. ABSENT: tenderness Extremities exam: ABSENT: pedal edema Musculoskeletal exam: PRESENT: normal inspection Neurological exam: PRESENT: other - Right sided weakness upper and lower ext. Upper ext more pronounced. Psychiatric exam: PRESENT: appropriate affect Skin exam: PRESENT: normal color Results Laboratory Results: 12/18/18 06:09 12/18/18 06:09 12/17/18 12/17/18 12/17/18 15:59 16:20 16:20 WBC 8.4 RBC 3.85 L Hgb 14.2 Hct 40.8 MCV 106 H MCH 36.9 H MCHC 34.9 RDW 15.1 H Plt Count 239 Seg Neutrophils % 79.2 H Sodium 137.6 Potassium 4.2 Chloride 108 H Carbon Dioxide 23 Anion Gap 7 BUN 13 Creatinine 0.85 Est GFR ( Amer) > 60 Glucose 84 Calcium 9.0 Magnesium Total Bilirubin 0.3 AST 53 Alkaline Phosphatase 69 Total Protein 6.1 L Albumin 3.4 L Urine Color YELLOW Urine Appearance CLEAR Urine pH 5.0 Ur Specific [place] 1.016 Urine Protein NEGATIVE Urine Glucose (UA) NEGATIVE Urine Ketones NEGATIVE Urine Blood NEGATIVE Urine Nitrite NEGATIVE Ur Leukocyte Esterase NEGATIVE Urine WBC (Auto) 8 Urine RBC (Auto) 0 12/17/18 12/18/18 12/18/18 16:20 06:09 06:09 WBC 5.4 RBC 3.79 L Hgb 13.9 Hct 40.1 MCV 106 H MCH 36.7 H MCHC 34.6 RDW 15.1 H Plt Count 234 Seg Neutrophils % 89.6 H Sodium 136.4 L Potassium 4.3 Chloride 107 Carbon Dioxide 20 L Anion Gap 9 BUN 12 Creatinine 0.54 Est GFR ( Amer) > 60 Glucose 195 H Calcium 8.8 Magnesium 1.6 1.9 Total Bilirubin 0.4 AST 44 Alkaline Phosphatase 65 Total Protein 5.9 L Albumin 3.3 L Urine Color Urine Appearance Urine pH Ur Specific [place] Urine Protein Urine Glucose (UA) Urine Ketones Urine Blood Urine Nitrite Ur Leukocyte Esterase Urine WBC (Auto) Urine RBC (Auto) Impressions: Images from [facility] have been reviewed. Noted, as below. Assessment & Plan - Diagnosis (1) ETOH abuse Is this a current diagnosis for this admission?: Yes Plan: Vitamins, ativan PRN. (2) Lung cancer metastatic to brain Is this a current diagnosis for this admission?: Yes Plan: MRI brain performed Dec 02 showed increased mets. Await start of radiation therapy. This has been delayed due to problems with the machine. Hopefully, will start today. Continue Dexamethasone 8 mg po BID as well as Keppra. CT C/A/P 12/03/2018 showed no evidence of further tumor progression or new disease, other than the brain. No active chemo at present. Will discuss further systemic treatment after completion of brain radiation. (3) Partial seizure Is this a current diagnosis for this admission?: Yes Plan: Keppra has been increased. Would ask neurology for further guidance as to controlling seizures, but hope that as cancer improves, these will improve as well. Continue pain meds for headaches as well. Patient was discussed with ED physician several times yesterday. Please call with any other concerns.
[2018-12-18] MEDS: INSULIN LISPRO 100 UNIT/ML 3 ML VIAL SUBCUT SCH ×4 (08:21→21:57)
[2018-12-18] MEDS ORDERED: KETOROLAC TROMETHAMINE INJ/PF 30 MG/1 ML SDV IV PRN (08:52)
--- NOTE | 2018-12-18 09:14 | RADIOLOGY REPORT (SQ) ---
EXAM DESCRIPTION: CT HEAD WITHOUT COMPLETED DATE/TIME: 12/18/2018 8:46 am REASON FOR STUDY: seizure COMPARISON: 12/14/2018 CT, 12/02/2018 MRI TECHNIQUE: Axial images acquired through the brain without intravenous contrast. Images reviewed wi th bone, brain and subdural windows. Additional sagittal and coronal reconstructions were generated. Images stored on PACS. All CT scanners at this facility use dose modulation, iterative reconstruction, and/or weight based d osing when appropriate to reduce radiation dose to as low as reasonably achievable (ALARA). [facility]: Dose Right [facility]: CareDose [facility]: Dose Right [facility]: Teradose 4D [facility]: [employer] RADIATION DOSE: CT Rad equipment meets quality standard of care and radiation dose reduction techniq ues were employed. CTDIvol: 48.6 mGy. DLP: 929 mGy-cm. mGy. LIMITATIONS: None. FINDINGS: VENTRICLES: Normal size and contour. CEREBRUM: Again seen are multiple hyperdense intra-axial lesions in both hemispheres compatible with known metastatic disease. Unchanged size of the hyperdense focus within the right frontal lobe measu ring 1 cm (series 2, image 23). Additional lesions appear stable in size from recent prior. Grossly stable hypoattenuation along the left parietooccipital lobe compatible with vasogenic edema. No shorty dence of new large vascular territory infarct. No evidence of new midline shift. No new space-occup chun hematoma. CEREBELLUM: No masses. No hemorrhage. No alteration of density. No evidence for acute infarction. EXTRAAXIAL SPACES: No fluid collections. No masses. ORBITS AND GLOBE: No intra- or extraconal masses. Normal contour of globe without masses. CALVARIUM: No fracture. PARANASAL SINUSES: No fluid or mucosal thickening. SOFT TISSUES: No mass or hematoma. OTHER: No other significant finding. IMPRESSION: Grossly stable appearance of the brain with multiple bilateral intra-axial metastatic le sions as above. No evidence of new large vascular territory infarct, midline shift or new or space-o ccupying hematoma. EVIDENCE OF ACUTE STROKE: NO. COMMENT: Quality ID # [id number]: Final reports with documentation of one or more dose reduction techniques (e.g., Automated exposure control, adjustment of the mA and/or kV according to patient size, use of iterative reconstruction technique) TECHNICAL DOCUMENTATION: JOB ID: [id number] [employer]- All Rights Reserved Reading location - IP/workstation name: [email or web address]
[2018-12-18] MEDS: LEVETIRACETAM 1500 MG/NACL-ISO 1,500 MG/100 ML RTUPB IV SCH ×2 (09:26→21:56)
[2018-12-18] MEDS: FAMOTIDINE 20 MG TABLET PO SCH ×2 (09:26→21:57)
--- NOTE | 2018-12-18 15:02 | PDOC PROGRESS REPORT ---
Subjective Subjective:: As per Dr. Tam his oncologist note. 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 At presentation, he was found to have brain mets. He underwent resection of the brain lesion at [facility] 12/01/2017. He then started chemotherapy and completed a total of 11 cycles of carboplatin/irinotecan 10/03/2018. PET/CT 09/09/2018 showed improvement in lung lesions with no other evidence of disease. Nov 2018, he had new onset seizures and was evaluated at [facility] and found to have recurrent brain mets. He was scheduled to begin radiation to the brain yesterday. 12/18/2018. Significant improvement of his right upper and lower extremity and twitching. Patient is still not able to lift Rt U/L ext against gravity but handgrip is 4/5, Rt U/E extensors 4/5, flexors 1/5. Rt L/E cannot hold against gravity, extensors 2/5, flexors 4/5. Denies any fever, chills, nausea, vomiting, diarrhea, constipation or any urinary symptoms. CT head negative for any acute stroke but positive for existing multiple metastatic lesions, patient is scheduled to have his radiation therapy today is inpatient. Reason For Visit: TREMORS Physical Exam Vital Signs: Temp Pulse Resp BP Pulse Ox 98.4 F 91 16 123/77 95 12/18/18 12:07 12/18/18 12:07 12/18/18 12:07 12/18/18 12:07 12/18/18 12:07 Intake & Output 12/17/18 12/18/18 12/19/18 06:59 06:59 06:59 Intake Total 310 1477 Output Total 600 225 Balance -290 1252 Weight 75.1 kg General appearance: PRESENT: no acute distress, well-developed, well-nourished Head exam: PRESENT: atraumatic, normocephalic Eye exam: PRESENT: conjunctiva pink, EOMI, PERRLA. ABSENT: scleral icterus Ear exam: PRESENT: normal external ear exam Mouth exam: PRESENT: moist, tongue midline Neck exam: ABSENT: carotid bruit, JVD, lymphadenopathy, thyromegaly Respiratory exam: PRESENT: clear to auscultation roman. ABSENT: rales, rhonchi, wheezes Cardiovascular exam: PRESENT: RRR. ABSENT: diastolic murmur, rubs, systolic murmur Pulses: PRESENT: normal dorsalis pedis pul Vascular exam: PRESENT: normal capillary refill GI/Abdominal exam: PRESENT: normal bowel sounds, soft. ABSENT: distended, guarding, mass, organolmegaly, rebound, tenderness Extremities exam: ABSENT: calf tenderness, clubbing, pedal edema Neurological exam: PRESENT: alert, awake, oriented to person, oriented to place, oriented to time, oriented to situation, CN II-XII grossly intact, motor sensory deficit - Patient is still not able to lift Rt U/L ext against gravity but handgrip is 4/5, Rt U/E extensors 4/5, flexors 1/5. Rt L/E cannot hold against g ravity, extensors 2/5, flexors 4/5. Psychiatric exam: PRESENT: appropriate affect, normal mood. ABSENT: homicidal ideation, suicidal ideation Skin exam: PRESENT: dry, intact, warm. ABSENT: cyanosis, rash Results Laboratory Results: 12/18/18 06:09 12/18/18 06:09 12/17/18 12/17/18 12/17/18 15:59 16:20 16:20 WBC 8.4 RBC 3.85 L Hgb 14.2 Hct 40.8 MCV 106 H MCH 36.9 H MCHC 34.9 RDW 15.1 H Plt Count 239 Seg Neutrophils % 79.2 H Sodium 137.6 Potassium 4.2 Chloride 108 H Carbon Dioxide 23 Anion Gap 7 BUN 13 Creatinine 0.85 Est GFR ( Amer) > 60 Glucose 84 Calcium 9.0 Magnesium Total Bilirubin 0.3 AST 53 Alkaline Phosphatase 69 Total Protein 6.1 L Albumin 3.4 L Urine Color YELLOW Urine Appearance CLEAR Urine pH 5.0 Ur Specific [place] 1.016 Urine Protein NEGATIVE Urine Glucose (UA) NEGATIVE Urine Ketones NEGATIVE Urine Blood NEGATIVE Urine Nitrite NEGATIVE Ur Leukocyte Esterase NEGATIVE Urine WBC (Auto) 8 Urine RBC (Auto) 0 12/17/18 12/18/18 12/18/18 16:20 06:09 06:09 WBC 5.4 RBC 3.79 L Hgb 13.9 Hct 40.1 MCV 106 H MCH 36.7 H MCHC 34.6 RDW 15.1 H Plt Count 234 Seg Neutrophils % 89.6 H Sodium 136.4 L Potassium 4.3 Chloride 107 Carbon Dioxide 20 L Anion Gap 9 BUN 12 Creatinine 0.54 Est GFR ( Amer) > 60 Glucose 195 H Calcium 8.8 Magnesium 1.6 1.9 Total Bilirubin 0.4 AST 44 Alkaline Phosphatase 65 Total Protein 5.9 L Albumin 3.3 L Urine Color Urine Appearance Urine pH Ur Specific [place] Urine Protein Urine Glucose (UA) Urine Ketones Urine Blood Urine Nitrite Ur Leukocyte Esterase Urine WBC (Auto) Urine RBC (Auto) Impressions: Head CT 12/17/18 15:51 IMPRESSION: Grossly stable appearance of the brain with multiple bilateral intra-axial metastatic lesions as above. No evidence of new large vascular territory infarct, midline shift or new or space-occupying hematoma. EVIDENCE OF ACUTE STROKE: NO. Assessment and Plan - Diagnosis (1) Hemiparesis of right dominant side Qualifiers: Hemiparesis etiology: non-cerebrovascular etiology Qualified Code(s): G81.91 - Hemiplegia, unspecified affecting right dominant side Is this a current diagnosis for this admission?: Yes Plan: Moderate improvement since yesterday. Due to metastatic brain cancer. CT head negative for any acute stroke. Continue telemetry, seizure precaution, fall precaution, aspiration precaution, neurochecks. Continue IV Keppra 1500 mg twice daily. Continue IV dexamethasone 4 mg every 6 hours. Not to exceed 16 mg in 24 hours. Continue PT/OT/ST. Radiation scheduled for today. Oncology on board. Recommendations noted. Please refer to note. (2) Lung cancer metastatic to brain Is this a current diagnosis for this admission?: Yes Plan: Chronic heavy smoker. Diagnosed with SCLC Nov 2017. Presented with seizure. Underwent resection of the brain lesion at [facility] 12/01/2017. Chemotherapy 11 cycles of carboplatin/irinotecan 10/03/2018. PET/CT 09/09/2018 showed improvement in lung lesions with no other evidence of disease. Was on keprra and seizure free. Had seizure on Nov 2018. Brain MRI at [facility] positive for multiple new lesions. Was scheduled for radiation fo 12/18/2018. Plan as per #1. (3) Partial seizure Is this a current diagnosis for this admission?: Yes Plan: Likely due to metastatic brain cancer. Continue IMCU, Keppra IV, dexamethasone IV, PRN Ativan, seizure, fall, aspiration precautions. (4) Tobacco abuse Is this a current diagnosis for this admission?: Yes Plan: Advised on abstinence. NicoDerm patch will be provided. (5) ETOH abuse Is this a current diagnosis for this admission?: Yes Plan: Daily drinker. Denies history of DT Continue telemetry, DT precautions. Continue p.o. thiamine, folic acid (6) Hyperglycemia Is this a current diagnosis for this admission?: Yes Plan: Most likely due to high-dose steroids. A1c pending. Continue Accu-Chek, sliding scale insulin with regular diet. Follow-up A1c.
[2018-12-19] MEDS: DEXAMETHASONE SOD PHOS INJ 10 MG/1 ML VIAL IV SCH ×3 (00:10→12:38)
[2018-12-19] MEDS: NORMAL SALINE 1000 ML 1,000 ML IV PRN ×2 (00:20→15:23)
[2018-12-19] MEDS: LORAZEPAM INJ 2 MG/1 ML VIAL IV PRN ×2 (01:24→04:53)
[2018-12-19 04:50] LABS: HEMATOCRIT 37.8 % (37.9-51.0); HEMOGLOBIN 13.2 g/dL (13.5-17.0); MEAN CORPUSCULAR HEMOGLOBIN 36.4 pg (27.0-33.4); MEAN CORPUSCULAR HGB CONC 34.9 g/dL (32.0-36.0); MEAN CORPUSCULAR VOLUME 104 fl (80-97); PLATELET COUNT 222 10^3/uL (150-450); RED BLOOD COUNT 3.62 10^6/uL (4.35-5.55); RED CELL DISTRIBUTION WIDTH 14.8 % (11.5-14.0)
[2018-12-19] MEDS: HEPARIN SOD (PORCINE) 5,000 UNIT/ML 1 ML VIAL SUBCUT SCH ×3 (05:02→21:11)
[2018-12-19 05:07] LABS: CHOLESTEROL 136.24 mg/dL (0-200); TRIGLYCERIDES 89 mg/dL (<150)
[2018-12-19 05:15] LABS: WHITE BLOOD COUNT 11.2 10^3/uL (4.0-10.5)
[2018-12-19 05:18] LABS: DIRECT LDL 69 mg/dL (<100)
[2018-12-19 05:19] LABS: ABSOLUTE LYMPHOCYTES# (MANUAL) 0.2 10^3/uL (0.5-4.7); ABSOLUTE MONOCYTES # (MANUAL) 0.2 10^3/uL (0.1-1.4); BASOPHILS % (MANUAL) 0 % (0-2); EOSINOPHILS % (MANUAL) 0 % (0-6); LYMPHOCYTES % (MANUAL) 2 % (13-45); MONOCYTES % (MANUAL) 2 % (3-13); SEGMENTED NEUTROPHILS % (MAN) 96 % (42-78); TOTAL CELLS COUNTED 100
[2018-12-19 05:22] LABS: ANISOCYTOSIS SLIGHT; TOXIC GRANULATION SLIGHT
[2018-12-19 05:23] LABS: BURR CELLS SLIGHT; OVALOCYTES SLIGHT; PLATELET COMMENT ADEQUATE; POIKILOCYTOSIS SLIGHT
--- NOTE | 2018-12-19 08:31 | PDOC PROGRESS REPORT ---
Subjective Progress Note for:: 12/19/18 Subjective:: Patient seems a little bit more alert this morning than was noted on previous notes, had long discussion with the family this morning, spent 45 minutes. Reason For Visit: TREMORS Physical Exam Vital Signs: Temp Pulse Resp BP Pulse Ox 97.3 F 63 18 149/80 H 94 12/19/18 08:09 12/19/18 08:09 12/19/18 08:09 12/19/18 08:09 12/19/18 08:09 Intake & Output 12/18/18 12/19/18 12/20/18 06:59 06:59 06:59 Intake Total 310 3027 Output Total 600 575 Balance -290 2452 Weight 75.1 kg 77.1 kg General appearance: PRESENT: no acute distress, well-developed, well-nourished Head exam: PRESENT: atraumatic, normocephalic Eye exam: PRESENT: conjunctiva pink, EOMI, PERRLA. ABSENT: scleral icterus Ear exam: PRESENT: normal external ear exam Mouth exam: PRESENT: moist, tongue midline Neck exam: ABSENT: carotid bruit, JVD, lymphadenopathy, thyromegaly Respiratory exam: PRESENT: clear to auscultation roman. ABSENT: rales, rhonchi, wheezes Cardiovascular exam: PRESENT: RRR. ABSENT: diastolic murmur, rubs, systolic murmur Pulses: PRESENT: normal dorsalis pedis pul Vascular exam: PRESENT: normal capillary refill GI/Abdominal exam: PRESENT: normal bowel sounds, soft. ABSENT: distended, guarding, mass, organolmegaly, rebound, tenderness Rectal exam: PRESENT: deferred Extremities exam: PRESENT: full ROM. ABSENT: calf tenderness, clubbing, pedal edema Neurological exam: PRESENT: alert, awake, oriented to person, oriented to place, oriented to time, oriented to situation, CN II-XII grossly intact. ABSENT: motor sensory deficit Psychiatric exam: PRESENT: appropriate affect, normal mood. ABSENT: homicidal ideation, suicidal ideation Skin exam: PRESENT: dry, intact, warm. ABSENT: cyanosis, rash Results Laboratory Results: 12/19/18 04:15 12/18/18 06:09 12/19/18 12/19/18 04:15 04:15 WBC 11.2 H D RBC 3.62 L Hgb 13.2 L Hct 37.8 L MCV 104 H MCH 36.4 H MCHC 34.9 RDW 14.8 H Plt Count 222 Seg Neutrophils % Not Reportable Magnesium 1.9 Triglycerides 89 Cholesterol 136.24 LDL Cholesterol Direct 69 VLDL Cholesterol 18.0 HDL Cholesterol 56 Impressions: Head CT 12/17/18 15:51 IMPRESSION: Grossly stable appearance of the brain with multiple bilateral intra-axial metastatic lesions as above. No evidence of new large vascular territory infarct, midline shift or new or space-occupying hematoma. EVIDENCE OF ACUTE STROKE: NO. Status: Image reviewed by me Assessment & Plan - Diagnosis (1) Lung cancer metastatic to brain Is this a current diagnosis for this admission?: Yes Plan: Patient having brain radiation today, ultimately he will have 10 treatments total. He would benefit from continued physical therapy while inpatient and ultimately would benefit from rehab placement. - Time Time Spent with patient: 35 or more minutes - Inpatient Certification Based on my medical assessment, after consideration of the patient's comorbidities, presenting symptoms, or acuity I expect that the services needed warrant INPATIENT care.: Yes I certify that my determination is in accordance with my understanding of Medicare's requirements for reasonable and necessary INPATIENT services [42 CFR 412.3e].: Yes Medical Necessity: Risk of Complication if Not Cared For in Hospital
[2018-12-19] MEDS: INSULIN LISPRO 100 UNIT/ML 3 ML VIAL SUBCUT SCH ×4 (10:50→21:11)
[2018-12-19] MEDS: LEVETIRACETAM 1500 MG/NACL-ISO 1,500 MG/100 ML RTUPB IV SCH ×2 (11:02→21:11)
[2018-12-19] MEDS: FAMOTIDINE 20 MG TABLET PO SCH ×2 (11:02→21:11)
--- NOTE | 2018-12-19 15:58 | PDOC PROGRESS REPORT ---
Subjective Progress Note for:: 12/19/18 Subjective:: No adverse events overnight. No new complaints. Vital signs been stable. He says he feels pretty good, just weak and fatigued. Reason For Visit: TREMORS Physical Exam Vital Signs: Temp Pulse Resp BP Pulse Ox 97.9 F 66 16 156/78 H 98 12/19/18 12:11 12/19/18 13:03 12/19/18 13:03 12/19/18 12:11 12/19/18 13:03 Intake & Output 12/18/18 12/19/18 12/20/18 06:59 06:59 06:59 Intake Total 310 3027 1100 Output Total 600 575 Balance -290 2452 1100 Weight 75.1 kg 77.1 kg General appearance: PRESENT: no acute distress, cooperative, disheveled Respiratory exam: PRESENT: clear to auscultation roman, symmetrical, unlabored. ABSENT: accessory muscle use, chest wall tenderness, crackles, prolonged expiratory phas, rhonchi, tachypnea, wheezes Cardiovascular exam: PRESENT: RRR, +S1, +S2 Pulses: PRESENT: normal carotid pulses Vascular exam: PRESENT: normal capillary refill GI/Abdominal exam: PRESENT: normal bowel sounds, soft. ABSENT: distended, guarding, rebound, tenderness Extremities exam: ABSENT: clubbing, pedal edema Musculoskeletal exam: PRESENT: normal inspection. ABSENT: deformity Neurological exam: PRESENT: alert, awake, oriented to person, oriented to place, oriented to situation Psychiatric exam: PRESENT: appropriate affect, normal mood Skin exam: PRESENT: dry, warm Results Laboratory Results: 12/19/18 04:15 12/18/18 06:09 12/19/18 12/19/18 04:15 04:15 WBC 11.2 H D RBC 3.62 L Hgb 13.2 L Hct 37.8 L MCV 104 H MCH 36.4 H MCHC 34.9 RDW 14.8 H Plt Count 222 Seg Neutrophils % Not Reportable Magnesium 1.9 Triglycerides 89 Cholesterol 136.24 LDL Cholesterol Direct 69 VLDL Cholesterol 18.0 HDL Cholesterol 56 Impressions: Head CT 12/17/18 15:51 IMPRESSION: Grossly stable appearance of the brain with multiple bilateral intra-axial metastatic lesions as above. No evidence of new large vascular territory infarct, midline shift or new or space-occupying hematoma. EVIDENCE OF ACUTE STROKE: NO. Assessment and Plan - Diagnosis (1) Lung cancer metastatic to brain Is this a current diagnosis for this admission?: Yes Plan: Plan to start radiation, looks like 10 treatments total have been planned. Because of his weakness that his been the opinion that he should go to rehab, I will have case management look into whether or not his insurance will pay for this. (2) ETOH abuse Is this a current diagnosis for this admission?: Yes Plan: No signs of withdrawal (3) Hemiparesis of right dominant side Qualifiers: Hemiparesis etiology: non-cerebrovascular etiology Qualified Code(s): G81.91 - Hemiplegia, unspecified affecting right dominant side Is this a current diagnosis for this admission?: Yes Plan: Seems to have resolved, he says he feels like his back to baseline - Time Time Spent with patient: 15-24 minutes
[2018-12-19] MEDS: DEXAMETHASONE SOD PHOSPHATE INJ 4 MG/1 ML VIAL IV SCH ×2 (17:12→23:26)
[2018-12-20] MEDS: HEPARIN SOD (PORCINE) 5,000 UNIT/ML 1 ML VIAL SUBCUT SCH ×3 (05:23→21:38)
[2018-12-20] MEDS: DEXAMETHASONE SOD PHOSPHATE INJ 4 MG/1 ML VIAL IV SCH (05:23)
[2018-12-20 05:50] LABS: HEMATOCRIT 39.2 % (37.9-51.0); HEMOGLOBIN 13.7 g/dL (13.5-17.0); MEAN CORPUSCULAR HEMOGLOBIN 36.6 pg (27.0-33.4); MEAN CORPUSCULAR HGB CONC 34.8 g/dL (32.0-36.0); MEAN CORPUSCULAR VOLUME 105 fl (80-97); PLATELET COUNT 228 10^3/uL (150-450); RED BLOOD COUNT 3.73 10^6/uL (4.35-5.55); RED CELL DISTRIBUTION WIDTH 14.8 % (11.5-14.0); WHITE BLOOD COUNT 8.9 10^3/uL (4.0-10.5)
[2018-12-20 06:30] LABS: ABSOLUTE LYMPHOCYTES# (MANUAL) 0.6 10^3/uL (0.5-4.7); ABSOLUTE MONOCYTES # (MANUAL) 0.4 10^3/uL (0.1-1.4); ANISOCYTOSIS SLIGHT; BASOPHILS % (MANUAL) 0 % (0-2); EOSINOPHILS % (MANUAL) 0 % (0-6); LYMPHOCYTES % (MANUAL) 6 % (13-45); MONOCYTES % (MANUAL) 5 % (3-13); NUCLEATED RED BLOOD CELLS 1 /100 WBC (0); PLATELET COMMENT ADEQUATE; SEGMENTED NEUTROPHILS % (MAN) 88 % (42-78); TOTAL CELLS COUNTED 100
[2018-12-20] MEDS: INSULIN LISPRO 100 UNIT/ML 3 ML VIAL SUBCUT SCH ×4 (07:57→21:38)
[2018-12-20] MEDS: FAMOTIDINE 20 MG TABLET PO SCH ×2 (09:53→21:39)
[2018-12-20] MEDS: LEVETIRACETAM 1500 MG/NACL-ISO 1,500 MG/100 ML RTUPB IV SCH ×2 (09:53→21:38)
--- NOTE | 2018-12-20 10:16 | PDOC PROGRESS REPORT ---
Subjective Progress Note for:: 12/20/18 Subjective:: Patient feeling much better today. Anxious to go home. Getting stronger. He agrees he will need more PT, but believes he will be safe at home with outpatient physical therapy. I have explained that he will not be able to go to Rehab while on radiation therapy. Reason For Visit: TREMORS Physical Exam Vital Signs: Temp Pulse Resp BP Pulse Ox 97.9 F 57 L 16 144/76 H 95 12/20/18 08:38 12/20/18 08:38 12/20/18 08:38 12/20/18 08:38 12/20/18 08:38 Intake & Output 12/19/18 12/20/18 12/21/18 06:59 06:59 06:59 Intake Total 3027 1200 Output Total 575 1025 Balance 2452 175 Weight 77.1 kg 76.1 kg General appearance: PRESENT: well-developed, well-nourished Head exam: PRESENT: normocephalic Eye exam: PRESENT: EOMI Respiratory exam: PRESENT: clear to auscultation rmoan, unlabored Cardiovascular exam: PRESENT: RRR Extremities exam: ABSENT: pedal edema Neurological exam: PRESENT: alert, awake Psychiatric exam: PRESENT: appropriate affect Skin exam: PRESENT: normal color Results Laboratory Results: 12/20/18 05:12 12/18/18 06:09 12/20/18 12/20/18 05:12 05:12 WBC 8.9 RBC 3.73 L Hgb 13.7 Hct 39.2 MCV 105 H MCH 36.6 H MCHC 34.8 RDW 14.8 H Plt Count 228 Seg Neutrophils % Not Reportable Magnesium 1.9 Impressions: Head CT 12/17/18 15:51 IMPRESSION: Grossly stable appearance of the brain with multiple bilateral intra-axial metastatic lesions as above. No evidence of new large vascular territory infarct, midline shift or new or space-occupying hematoma. EVIDENCE OF ACUTE STROKE: NO. Assessment & Plan - Diagnosis (1) ETOH abuse Is this a current diagnosis for this admission?: Yes (2) Lung cancer metastatic to brain Is this a current diagnosis for this admission?: Yes Plan: Continues radiation therapy to the brain. No evidence of progression anywhere else on recent scans. Continue Dexamethasone and Keppra. Discussed physical therapy with Dr. Parker. OK for discharge when he is safe to ambulate and transfer to home with physical therapy. (3) Partial seizure Is this a current diagnosis for this admission?: Yes Plan: Continue keppra. Will begin to wean steroids next week. - Time Time Spent with patient: 15-24 minutes - Plan Summary Plan Summary: Patient was discussed with Dr. Parker with primary team.
--- NOTE | 2018-12-20 14:51 | PDOC PROGRESS REPORT ---
Subjective Progress Note for:: 12/20/18 Subjective:: No adverse events overnight. No new complaints. Vital signs been stable. He says he feels pretty good, just weak and fatigued. He says the movement in his right side is about the same as it was yesterday. Reason For Visit: TREMORS Physical Exam Vital Signs: Temp Pulse Resp BP Pulse Ox 97.3 F 57 L 16 133/77 H 96 12/20/18 12:28 12/20/18 12:28 12/20/18 12:28 12/20/18 12:28 12/20/18 12:28 Intake & Output 12/19/18 12/20/18 12/21/18 06:59 06:59 06:59 Intake Total 3027 1200 100 Output Total 575 1025 Balance 2452 175 100 Weight 77.1 kg 76.1 kg General appearance: PRESENT: no acute distress, cooperative, disheveled Respiratory exam: PRESENT: clear to auscultation roman, symmetrical, unlabored. ABSENT: accessory muscle use, chest wall tenderness, crackles, prolonged expiratory phas, rhonchi, tachypnea, wheezes Cardiovascular exam: PRESENT: RRR, +S1, +S2 Pulses: PRESENT: normal carotid pulses Vascular exam: PRESENT: normal capillary refill GI/Abdominal exam: PRESENT: normal bowel sounds, soft. ABSENT: distended, guarding, rebound, tenderness Extremities exam: ABSENT: clubbing, pedal edema Musculoskeletal exam: PRESENT: normal inspection. ABSENT: deformity Neurological exam: PRESENT: alert, awake, oriented to person, oriented to place, oriented to situation Psychiatric exam: PRESENT: appropriate affect, normal mood Skin exam: PRESENT: dry, warm Results Laboratory Results: 12/20/18 05:12 12/18/18 06:09 12/20/18 12/20/18 05:12 05:12 WBC 8.9 RBC 3.73 L Hgb 13.7 Hct 39.2 MCV 105 H MCH 36.6 H MCHC 34.8 RDW 14.8 H Plt Count 228 Seg Neutrophils % Not Reportable Magnesium 1.9 Impressions: Head CT 12/17/18 15:51 IMPRESSION: Grossly stable appearance of the brain with multiple bilateral intra-axial metastatic lesions as above. No evidence of new large vascular territory infarct, midline shift or new or space-occupying hematoma. EVIDENCE OF ACUTE STROKE: NO. Assessment and Plan - Diagnosis (1) Lung cancer metastatic to brain Is this a current diagnosis for this admission?: Yes Plan: Whole brain radiation, looks like 10 treatments total have been planned. Because of his weakness that his been the opinion that he should go to rehab, I will have case management look into whether or not his insurance will pay for this, but I do not think that at this time he is a good candidate for home health PT. (2) ETOH abuse Is this a current diagnosis for this admission?: Yes Plan: No signs of withdrawal (3) Hemiparesis of right dominant side Qualifiers: Hemiparesis etiology: non-cerebrovascular etiology Qualified Code(s): G81.91 - Hemiplegia, unspecified affecting right dominant side Is this a current diagnosis for this admission?: Yes Plan: Seems to have resolved, he says he feels like his back to baseline - Time Time Spent with patient: 15-24 minutes
[2018-12-20] MEDS: DEXAMETHASONE 4 MG TABLET PO SCH (17:08)
[2018-12-20] MEDS: NORMAL SALINE 1000 ML 1,000 ML IV PRN (23:54)
[2018-12-21] MEDS: HEPARIN SOD (PORCINE) 5,000 UNIT/ML 1 ML VIAL SUBCUT SCH ×3 (05:21→21:38)
--- NOTE | 2018-12-21 10:22 | PDOC PROGRESS REPORT ---
Subjective Progress Note for:: 12/21/18 Subjective:: As per Dr. Tam his oncologist note. 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 At presentation, he was found to have brain mets. He underwent resection of the brain lesion at [facility] 12/01/2017. He then started chemotherapy and completed a total of 11 cycles of carboplatin/irinotecan 10/03/2018. PET/CT 09/09/2018 showed improvement in lung lesions with no other evidence of disease. Nov 2018, he had new onset seizures and was evaluated at [facility] and found to have recurrent brain mets. He was scheduled to begin radiation to the brain yesterday. 12/21/2018. No acute events overnight. Significant improvement of right-sided hemiparesis and right-sided twitching since admission. Patient is stating that he is back to baseline and would like to be transferred to rehab if possible to continue his physical therapy. He is on 10-day radiation regimen receiving it while inpatient. Denies any fever, chills, nausea, vomiting, diarrhea, constipation or any urinary symptoms. Reason For Visit: TREMORS Physical Exam Vital Signs: Temp Pulse Resp BP Pulse Ox 97.8 F 56 L 16 157/87 H 98 12/21/18 04:12 12/21/18 07:00 12/21/18 04:12 12/21/18 04:12 12/21/18 04:12 Intake & Output 12/20/18 12/21/18 12/22/18 06:59 06:59 06:59 Intake Total 2200 560 236 Output Total 1025 2100 Balance 1175 -1540 236 Weight 76.1 kg 77.5 kg General appearance: PRESENT: no acute distress, well-developed, well-nourished Respiratory exam: PRESENT: clear to auscultation roman. ABSENT: rales, rhonchi, wheezes Cardiovascular exam: PRESENT: RRR. ABSENT: diastolic murmur, rubs, systolic murmur GI/Abdominal exam: PRESENT: normal bowel sounds, soft. ABSENT: distended, guarding, mass, organolmegaly, rebound, tenderness Neurological exam: PRESENT: alert, awake, oriented to person, oriented to place, oriented to time, oriented to situation, CN II-XII grossly intact, other - Right upper extremity twitching, significant improvement since admission.. ABSENT: motor sensory deficit Results Laboratory Results: 12/20/18 05:12 12/18/18 06:09 Impressions: Head CT 12/17/18 15:51 IMPRESSION: Grossly stable appearance of the brain with multiple bilateral intra-axial metastatic lesions as above. No evidence of new large vascular territory infarct, midline shift or new or space-occupying hematoma. EVIDENCE OF ACUTE STROKE: NO. Assessment and Plan - Diagnosis (1) Lung cancer metastatic to brain Is this a current diagnosis for this admission?: Yes Plan: Chronic heavy smoker. Diagnosed with SCLC Nov 2017. Presented with seizure. Underwent resection of the brain lesion at [facility] 12/01/2017. Chemotherapy 11 cycles of carboplatin/irinotecan 10/03/2018. PET/CT 09/09/2018 showed improvement in lung lesions with no other evidence of disease. Was on keprra and seizure free. Had seizure on Nov 2018. Brain MRI at [facility] positive for multiple new lesions. On round 3 radiation Oncology on board. (2) Hemiparesis of right dominant side Qualifiers: Hemiparesis etiology: non-cerebrovascular etiology Qualified Code(s): G81.91 - Hemiplegia, unspecified affecting right dominant side Is this a current diagnosis for this admission?: Yes Plan: Resolved. Back to baseline. Due to metastatic brain cancer. CT head negative for any acute stroke. Day 04/22 brain radiation. Continue telemetry, seizure precaution, fall precaution, aspiration precaution, neurochecks. Continue IV Keppra 1500 mg twice daily. Continue IV dexamethasone 4 mg every 6 hours. Not to exceed 16 mg in 24 hours. Continue PT/OT/ST. Oncology on board. Recommendations noted. Please refer to note. (3) Partial seizure Is this a current diagnosis for this admission?: Yes Plan: Likely due to metastatic brain cancer. Continue IMCU, Keppra IV, dexamethasone IV, PRN Ativan, seizure, fall, aspiration precautions. (4) Tobacco abuse Is this a current diagnosis for this admission?: Yes Plan: Advised on abstinence. NicoDerm patch will be provided. (5) ETOH abuse Is this a current diagnosis for this admission?: Yes Plan: No signs of withdrawal (6) Hyperglycemia Is this a current diagnosis for this admission?: Yes Plan: Most likely due to high-dose steroids. A1c 5.8%. Continue Accu-Chek, sliding scale insulin with regular diet. Follow-up A1c.
[2018-12-21] MEDS: DEXAMETHASONE 4 MG TABLET PO SCH ×2 (10:47→17:18)
[2018-12-21] MEDS: LEVETIRACETAM 1500 MG/NACL-ISO 1,500 MG/100 ML RTUPB IV SCH ×2 (10:47→21:38)
[2018-12-21] MEDS: FAMOTIDINE 20 MG TABLET PO SCH ×2 (10:47→21:39)
[2018-12-21] MEDS: NORMAL SALINE 1000 ML 1,000 ML IV PRN (10:48)
[2018-12-21] MEDS: INSULIN LISPRO 100 UNIT/ML 3 ML VIAL SUBCUT SCH ×4 (14:18→21:38)
[2018-12-22] MEDS: HEPARIN SOD (PORCINE) 5,000 UNIT/ML 1 ML VIAL SUBCUT SCH (05:50)
[2018-12-22] MEDS: INSULIN LISPRO 100 UNIT/ML 3 ML VIAL SUBCUT SCH ×2 (08:30→11:33)
[2018-12-22] MEDS: FAMOTIDINE 20 MG TABLET PO SCH (09:05)
[2018-12-22] MEDS: DEXAMETHASONE 4 MG TABLET PO SCH (09:05)
[2018-12-22] MEDS: LEVETIRACETAM 1500 MG/NACL-ISO 1,500 MG/100 ML RTUPB IV SCH (09:50)
[2018-12-22] MEDS ORDERED: LISINOPRIL 5 MG TABLET PO SCH (10:00)
[2018-12-22 11:49] VITALS: BP 104/72
--- NOTE | 2018-12-22 15:27 | PDOC DISCHARGE SUMMARY ---
Impression - Admit/DC Date/PCP Admission Date/Primary Care Provider: 12/18/18 12:48 Discharge Date: 12/22/18 - Discharge Diagnosis (1) Lung cancer metastatic to brain Is this a current diagnosis for this admission?: Yes (2) Hemiparesis of right dominant side Is this a current diagnosis for this admission?: Yes (3) Partial seizure Is this a current diagnosis for this admission?: Yes (4) Tobacco abuse Is this a current diagnosis for this admission?: Yes (5) ETOH abuse Is this a current diagnosis for this admission?: Yes (6) Hyperglycemia Is this a current diagnosis for this admission?: Yes - Additional Information Discharge Diet: As Tolerated, Diabetic Discharge Activity: Activity As Tolerated Referrals: DIAZ GREGG MD [ACTIVE STAFF] - 01/08/19 9:15 am DEUCE COATES MD [NO LOCAL MD] - Prescriptions: Dexamethasone [Decadron 4 mg Tablet] 6 mg PO BID 20 Days #40 tablet Levetiracetam 1,500 mg PO Q12 30 Days #60 tab Pantoprazole Sodium 40 mg PO BID 20 Days #40 tablet. Lisinopril [Prinivil 5 mg Tablet] 5 mg PO DAILY 30 Days #30 tablet Home Medications: Allopurinol [Zyloprim 300 mg Tablet] 300 mg PO DAILY 12/18/18 Atorvastatin Calcium [Lipitor 40 mg Tablet] 40 mg PO QHS 12/18/18 Metformin HCl [Metformin HCl ER] 500 mg PO DAILY 12/18/18 Nicotine [Nicoderm Cq] 1 patch TOP DAILY 12/18/18 Dexamethasone [Decadron 4 mg Tablet] 6 mg PO BID 20 Days #40 tablet 12/22/18 Levetiracetam 1,500 mg PO Q12 30 Days #60 tab 12/22/18 Lisinopril [Prinivil 5 mg Tablet] 5 mg PO DAILY 30 Days #30 tablet 12/22/18 Pantoprazole Sodium 40 mg PO BID 20 Days #40 tablet. 12/22/18 History of Present Illiness History of Present Illness: SAQIB HILLS is a 63 year old male seizure disorder, metastatic lung cancer to brain. Source of history is who is at the bedside as patient is too somnolent bec ause of receiving multiple dose of benzodiazepines for seizure. Patient had his first seizure disorder 2017 due to brain metastasis caused by metastatic lung cancer. Patient was seizure-free for a year but on December 01, 2018 had another seizure and a brain CT and brain MRI showed multiple new brain metastasis. At baseline patient is able to ambulate and do most of the ADLs but today this afternoon noticed that he was having twitches on the right upper and lower extremity and brought into ED to be evaluated. In route to ED patient was given benzodiazepines. Given his history of seizure metastatic brain cancer Dr. Martinez who is his oncologist was called who suggested for patient to be admitted for observation. On my encounter patient is sleeping, easily arousable however very somnolent and does not provide much information, he has an involuntary twitching of his right upper extremity, cannot hold right upper and lower extremity against gravity. As per who is a source of history patient has not been complaining of any fever, chills, nausea, vomiting, diarrhea, constipation or any urinary symptoms. Patient is still smokes and uses EtOH daily. Hospital Course Hospital Course: (1) Lung cancer metastatic to brain Chronic heavy smoker. Diagnosed with SCLC Nov 2017. Presented with seizure. Underwent resection of the brain lesion at [facility] 12/01/2017. Chemotherapy 11 cycles of carboplatin/irinotecan 10/03/2018. PET/CT 09/09/2018 showed improvement in lung lesions with no other evidence of disease. Was on keprra and seizure free. Had seizure on Nov 2018. Brain MRI at [facility] positive for multiple new lesions. Received 5/10 rounds of radiation in the hospital. Scheduled to continue radiation as outpatient. Appointment with Dr. Martinez on 01/08/2019. (2) Hemiparesis of right dominant side Resolved. Back to baseline. Due to metastatic brain cancer. CT head negative for any acute stroke. Day 5/10 brain radiation. Was admitted to [facility] telemetry, seizure precaution, fall precaution, aspiration precaution, neurochecks. Started on IV Keppra 1500 mg twice daily and IV dexamethasone 4 mg every 6 hours. Not to exceed 16 mg in 24 hours. Oncology on board. Recommendations noted. Please refer to note. Was discharged on Keppra 1500 mg p.o. twice daily. Dexamethasone 6 g p.o. twice daily for 20 days. Patient was counseled about risk of purple discoloration of high-dose steroids. Patient has an appointment on 01/08/[address] Martinez. Patient was asked to follow-up with Dr. Martinez to see if he will need to continue high-dose steroids or if he could be tapered slowly. Patient and voiced understanding. (3) Partial seizure Likely due to metastatic brain cancer. Not have any seizure while inpatient. Was a started on IMCU, Keppra IV, dexamethasone IV, PRN Ativan, seizure, fall, aspiration precautions. Discharged on Keppra 1500 mg p.o. twice daily. (4) Tobacco abuse Advised on abstinence. NicoDerm patch will be provided. (5) ETOH abuse No signs of withdrawal (6) Hyperglycemia Most likely due fo high-dose steroids. Metformin at home. A1c 5.8%. Was a started continue Accu-Chek, sliding scale insulin with regular diet. Advised on diabetic diet, to continue metformin and follow-up with PCP. Physical Exam Vital Signs: Temp Pulse Resp BP Pulse Ox 97.2 F 79 18 104/72 97 12/22/18 11:49 12/22/18 11:49 12/22/18 11:49 12/22/18 11:49 12/22/18 11:49 Intake & Output 12/21/18 12/22/18 12/23/18 06:59 06:59 06:59 Intake Total 560 2785 480 Output Total 2100 1625 300 Balance -1540 1160 180 Weight 77.5 kg 79 kg General appearance: PRESENT: no acute distress, well-developed, well-nourished Head exam: PRESENT: atraumatic, normocephalic Eye exam: PRESENT: conjunctiva pink, EOMI, PERRLA. ABSENT: scleral icterus Ear exam: PRESENT: normal external ear exam Mouth exam: PRESENT: moist, tongue midline Neck exam: ABSENT: carotid bruit, JVD, lymphadenopathy, thyromegaly Respiratory exam: PRESENT: clear to auscultation roman. ABSENT: rales, rhonchi, wheezes Cardiovascular exam: PRESENT: RRR. ABSENT: diastolic murmur, rubs, systolic murmur Pulses: PRESENT: normal dorsalis pedis pul Vascular exam: PRESENT: normal capillary refill GI/Abdominal exam: PRESENT: normal bowel sounds, soft. ABSENT: distended, guarding, mass, organolmegaly, rebound, tenderness Rectal exam: PRESENT: deferred Extremities exam: PRESENT: full ROM. ABSENT: calf tenderness, clubbing, pedal edema Neurological exam: PRESENT: alert, awake, oriented to person, oriented to place, oriented to time, oriented to situation, CN II-XII grossly intact. ABSENT: motor sensory deficit Psychiatric exam: PRESENT: appropriate affect, normal mood. ABSENT: homicidal ideation, suicidal ideation Skin exam: PRESENT: dry, intact, warm. ABSENT: cyanosis, rash Results Laboratory Results: WBC 8.9 10^3/uL (4.0-10.5) 12/20/18 05:12 RBC 3.73 10^6/uL (4.35-5.55) L 12/20/18 05:12 Hgb 13.7 g/dL (13.5-17.0) 12/20/18 05:12 Hct 39.2 % (37.9-51.0) 12/20/18 05:12 MCV 105 fl (80-97) H 12/20/18 05:12 MCH 36.6 pg (27.0-33.4) H 12/20/18 05:12 MCHC 34.8 g/dL (32.0-36.0) 12/20/18 05:12 RDW 14.8 % (11.5-14.0) H 12/20/18 05:12 Plt Count 228 10^3/uL (150-450) 12/20/18 05:12 Lymph % (Auto) Not Reportable 12/20/18 05:12 [place] % (Auto) Not Reportable 12/20/18 05:12 Eos % (Auto) Not Reportable 12/20/18 05:12 Baso % (Auto) Not Reportable 12/20/18 05:12 Absolute Neuts (auto) Not Reportable 12/20/18 05:12 Absolute Lymphs (auto) Not Reportable 12/20/18 05:12 Absolute Monos (auto) Not Reportable 12/20/18 05:12 Absolute Eos (auto) Not Reportable 12/20/18 05:12 Absolute Basos (auto) Not Reportable 12/20/18 05:12 Total Counted 100 12/20/18 05:12 Seg Neutrophils % Not Reportable 12/20/18 05:12 Seg Neuts % (Manual) 88 % (42-78) H 12/20/18 05:12 Lymphocytes % (Manual) 6 % (13-45) L 12/20/18 05:12 Atypical Lymphs % 1 % (0) 12/20/18 05:12 Monocytes % (Manual) 5 % (3-13) 12/20/18 05:12 Eosinophils % (Manual) 0 % (0-6) 12/20/18 05:12 Basophils % (Manual) 0 % (0-2) 12/20/18 05:12 Abs Neuts (Manual) 7.8 10^3/uL (1.7-8.2) 12/20/18 05:12 Abs Lymphs (Manual) 0.6 10^3/uL (0.5-4.7) 12/20/18 05:12 Abs Monocytes (Manual) 0.4 10^3/uL (0.1-1.4) 12/20/18 05:12 Absolute Eos (Manual) 0.0 10^3/uL (0.0-0.6) 12/20/18 05:12 Abs Basophils (Manual) 0.0 10^3/uL (0.0-0.2) 12/20/18 05:12 Nucleated RBCs 1 /100 WBC (0) 12/20/18 05:12 Toxic Granulation SLIGHT 12/19/18 04:15 Platelet Comment ADEQUATE 12/20/18 05:12 Poikilocytosis SLIGHT 12/19/18 04:15 Anisocytosis SLIGHT 12/20/18 05:12 Ovalocytes SLIGHT 12/19/18 04:15 [place] Cells SLIGHT 12/19/18 04:15 Sodium 136.4 mmol/L (137-145) L 12/18/18 06:09 Potassium 4.3 mmol/L (3.6-5.0) 12/18/18 06:09 Chloride 107 mmol/L (98-107) 12/18/18 06:09 Carbon Dioxide 20 mmol/L (22-30) L 12/18/18 06:09 Anion Gap 9 (5-19) 12/18/18 06:09 BUN 12 mg/dL (7-20) 12/18/18 06:09 Creatinine 0.54 mg/dL (0.52-1.25) 12/18/18 06:09 Est GFR ( Amer) > 60 (>60) 12/18/18 06:09 Est GFR (MDRD) Non-Af > 60 (>60) 12/18/18 06:09 Glucose 195 mg/dL (75-110) H 12/18/18 06:09 POC Glucose 139 mg/dL (70-110) H 12/22/18 11:11 Hemoglobin A1c % 5.8 % (4.7-6.0) 12/19/18 04:15 Calcium 8.8 mg/dL (8.4-10.2) 12/18/18 06:09 Magnesium 1.9 mg/dL (1.6-2.3) 12/20/18 05:12 Total Bilirubin 0.4 mg/dL (0.2-1.3) 12/18/18 06:09 Direct Bilirubin 0.1 mg/dL (0.0-0.4) 12/18/18 06:09 Neonat Total Bilirubin Not Reportable 12/18/18 06:09 Neonat Direct Bilirubin Not Reportable 12/18/18 06:09 Neonat Indirect Bili Not Reportable 12/18/18 06:09 AST 44 U/L (17-59) 12/18/18 06:09 ALT 68 U/L (<50) 12/18/18 06:09 Alkaline Phosphatase 65 U/L (38-126) 12/18/18 06:09 Total Protein 5.9 g/dL (6.3-8.2) L 12/18/18 06:09 Albumin 3.3 g/dL (3.5-5.0) L 12/18/18 06:09 Triglycerides 89 mg/dL (<150) 12/19/18 04:15 Cholesterol 136.24 mg/dL (0-200) 12/19/18 04:15 LDL Cholesterol Direct 69 mg/dL (<100) 12/19/18 04:15 VLDL Cholesterol 18.0 mg/dL (10-31) 12/19/18 04:15 HDL Cholesterol 56 mg/dL (>40) 12/19/18 04:15 Urine Color YELLOW 12/17/18 15:59 Urine Appearance CLEAR 12/17/18 15:59 Urine pH 5.0 (5.0-9.0) 12/17/18 15:59 Ur Specific [place] 1.016 12/17/18 15:59 Urine Protein NEGATIVE mg/dL (NEGATIVE) 12/17/18 15:59 Urine Glucose (UA) NEGATIVE mg/dL (NEGATIVE) 12/17/18 15:59 Urine Ketones NEGATIVE mg/dL (NEGATIVE) 12/17/18 15:59 Urine Blood NEGATIVE (NEGATIVE) 12/17/18 15:59 Urine Nitrite NEGATIVE (NEGATIVE) 12/17/18 15:59 Urine Bilirubin NEGATIVE (NEGATIVE) 12/17/18 15:59 Urine Urobilinogen NEGATIVE mg/dL (<2.0) 12/17/18 15:59 Ur Leukocyte Esterase NEGATIVE (NEGATIVE) 12/17/18 15:59 Urine WBC (Auto) 8 /HPF 12/17/18 15:59 Urine RBC (Auto) 0 /HPF 12/17/18 15:59 Urine Mucus (Auto) RARE /LPF 12/17/18 15:59 Urine Ascorbic Acid NEGATIVE (NEGATIVE) 12/17/18 15:59 Impressions: Head CT 12/17/18 15:51 IMPRESSION: Grossly stable appearance of the brain with multiple bilateral in tra-axial metastatic lesions as above. No evidence of new large vascular territory infarct, midline shift or new or space-occupying hematoma. EVIDENCE OF ACUTE STROKE: NO. Stroke Is this a Stroke Patient?: No Acute Heart Failure - Is this a Heart Failure Patient?: No
== END 2018-12-22 13:25 | disposition home or self-care (01) | DRG 55 ==
LOC: ER 14:27 → INTOOBSV 19:17 → EH 19:17 → 3W 22:45 → OBSVTOIN 12-18 12:48
PROVIDERS: ADMIT Internal Medicine; ATTEND Internal Medicine
DX: C79.31 Secondary malignant neoplasm of brain (principal); C34.90 Malignant neoplasm of unspecified part of unspecified bronchus or lung; G81.91 Hemiplegia, unspecified affecting right dominant side; G40.109 Localization-related (focal) (partial) symptomatic epilepsy and epileptic syndromes with simple partial seizures, not intractable, without status epilepticus; E09.65 Drug or chemical induced diabetes mellitus with hyperglycemia; T38.0X5A Adverse effect of glucocorticoids and synthetic analogues, initial encounter; R25.1 Tremor, unspecified; I25.10 Atherosclerotic heart disease of native coronary artery without angina pectoris; I10 Essential (primary) hypertension; G40.909 Epilepsy, unspecified, not intractable, without status epilepticus; F17.210 Nicotine dependence, cigarettes, uncomplicated; F10.10 Alcohol abuse, uncomplicated; Y90.9 Presence of alcohol in blood, level not specified; Y92.098 Other place in other non-institutional residence as the place of occurrence of the external cause; Z79.899 Other long term (current) drug therapy; Z79.84 Long term (current) use of oral hypoglycemic drugs
CPT/HCPCS: 36415; 70450; 80053; 80061; 81001; 82962; 83036; 83735; 85025; 96374; 96375; 96376; 99285; G0378; J1100; J1644; J1815; J1953; J2060; J3411; J3475; J3480; J3490; J7030; J8540

== ENCOUNTER → 2019-01-08 | Outpatient (CLI) | payer OTHER ==
--- NOTE | 2019-01-08 16:31 | RADIOLOGY REPORT (SQ) ---
EXAM DESCRIPTION: CT CHEST WITH COMPLETED DATE/TIME: 01/08/2019 9:26 am REASON FOR STUDY: MALIGNANT NEOPLASM OF UPPER LOBE, LEFT BRONCHUS OR LUNG C34.12 MALIGNANT NEOPLASM OF UPPER LOBE, LEFT BRONCHUS OR ABDOUL COMPARISON: PET-CT 09/09/2018 TECHNIQUE: CT scan of the chest performed using helical scanning technique with dynamic intravenous contrast injection. Images reviewed with lung, soft tissue and bone windows. Reconstructed coronal and sagittal MPR and MIP images reviewed. All images stored on PACS. All CT scanners at this facility use dose modulation, iterative reconstruction, and/or weight based d osing when appropriate to reduce radiation dose to as low as reasonably achievable (ALARA). [facility]: Dose Right [facility]: CareDose [facility]: Dose Right [facility]: Teradose 4D [facility]: Enmotus CONTRAST TYPE AND DOSE: contrast/concentration: Isovue 350.00 mg/ml; Total Contrast Delivered: 80.0 ml; Total Saline Delivered: 55.0 ml RENAL FUNCTION: GFR > 60. RADIATION DOSE: CT Rad equipment meets quality standard of care and radiation dose reduction techniq ues were employed. CTDIvol: 3.8 mGy. DLP: 170 mGy-cm. . LIMITATIONS: None. FINDINGS: LUNGS AND PLEURA: Right lower lobe mass 2.7 x 3.4 cm by my measurements, previously 3.2 x 4.0 cm. Mild pleural reaction along the lateral aspect of the right lower lobe. Occasional faint no dules which are stable. Mild centrilobular emphysema. HILAR AND MEDIASTINAL STRUCTURES: No identified masses or abnormal nodes. HEART AND VASCULAR STRUCTURES: No aneurysm or dissection. No central pulmonary emboli. No pericardi al effusion. HARDWARE: None in the chest. UPPER ABDOMEN: No significant findings. Limited exam. THYROID AND OTHER SOFT TISSUES: No masses. No adenopathy. BONES: Nothing acute. OTHER: No other significant finding. IMPRESSION: Favorable response to therapy. TECHNICAL DOCUMENTATION: JOB ID: [id number] Quality ID # 436: Final reports with documentation of one or more dose reduction techniques (e.g., Au tomated exposure control, adjustment of the mA and/or kV according to patient size, use of iterative reconstruction technique) 2010 [employer]- All Rights Reserved Reading location - IP/workstation name: [email or web address]
== END ==
LOC: RAD 08:52
PROVIDERS: ATTEND Internal Medicine Hematology & Oncology
DX: C34.12 Malignant neoplasm of upper lobe, left bronchus or lung (principal)
CPT/HCPCS: 71260

== ENCOUNTER → 2019-02-25 | Outpatient (CLI) | payer OTHER ==
--- NOTE | 2019-02-25 09:40 | RADIOLOGY REPORT (SQ) ---
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 TECHNIQUE: CT scan of the chest performed using helical scanning technique with dynamic intravenous contrast injection. Images reviewed with lung, soft tissue and bone windows. Reconstructed coronal a nd sagittal MPR images reviewed. All images stored on PACS. All CT scanners at this facility use dose modulation, iterative reconstruction, and/or weight based d osing when appropriate to reduce radiation dose to as low as reasonably achievable (ALARA). [facility]: Dose Right [facility]: CareDose [facility]: Dose Right [facility]: Teradose 4D [facility]: Smart [employer] Studio RADIATION DOSE: CT Rad equipment meets quality standard of care and radiation dose reduction techniq ues were employed. CTDIvol: 4.7 - 4.9 mGy. DLP: 715 mGy-cm. . LIMITATIONS: None. FINDINGS: AXILLAE: No adenopathy. CHEST WALL: No masses. No subcutaneous air. LUNGS: The right lower lobe mass demonstrates a more solid appearance on today's exam compared to . The lesion measures 3.8 x 2.1 cm in greatest dimensions increased from prior study. Subple ural airspace disease best demonstrated on series 6, image 90 is increased when compared to prior gogo dy as well. Overall size is 2.2 x 1.6 cm. This could be postobstructive pneumonia although metastat ic disease cannot be excluded. Stable mild bilateral emphysematous changes. There is a subpleural n odule in the posterior aspect of the left upper lobe best demonstrated on series 6, image 42. This m easures 6.4 x 5.4 cm and is not significantly changed. PLEURA: No effusions. No calcifications. THYROID: No masses or significant asymmetry. HILAR AND MEDIASTINAL STRUCTURES: No identified masses or abnormal nodes. AORTA AND GREAT VESSELS: No aneurysm. No dissection. PULMONARY ARTERIES: No identified pulmonary emboli. Study not optimized for the pulmonary arteries. HEART: No pericardial effusion. HARDWARE AND LIFELINES: None. BONES: No significant finding. OTHER: No other significant finding. IMPRESSION: The right lower lobe mass appears more organized on today's study. It is increased in s ize now measuring 3.8 x 2.1 cm. Subpleural infiltrate and/or mass in the right lower lobe is slightl y increased in size as well. COMPARISON: None. RADIATION DOSE: CT Rad equipment meets quality standard of care and radiation dose reduction techniq ues were employed. CTDIvol: 4.7 - 4.9 mGy. DLP: 715 mGy-cm. mGy. TECHNIQUE: CT scan of the abdomen and pelvis performed with intravenous and oral contrast using mickie ortega scanning technique with dynamic intravenous contrast injection. Images reviewed with lung, soft tissue and bone windows. Reconstructed coronal and sagittal MPR images reviewed. Delayed images for evaluation of the urinary system also acquired and evaluated. All images stored on PACS. All CT scanners at this facility use dose modulation, iterative reconstruction, and/or weight based d osing when appropriate to reduce radiation dose to as low as reasonably achievable (ALARA). [facility]: Dose Right [facility]: SureCare [facility]: Dose Right [facility]: Teradose 4D [facility]: iSSimple FINDINGS: LIVER: Normal size. No masses. No dilated ducts. SPLEEN: Normal size. No focal lesions. PANCREAS: No masses. No significant calcifications. No adjacent inflammation or peripancreatic flui d collections. Pancreatic duct not dilated. GALLBLADDER: No identified stones by CT criteria. No inflammatory changes to suggest cholecystitis. ADRENAL GLANDS: No significant masses or asymmetry. RIGHT KIDNEY AND URETER: No solid masses. No significant calcifications. No hydronephrosis or hyd roureter. LEFT KIDNEY AND URETER: No solid masses. No significant calcifications. No hydronephrosis or hydr oureter. AORTA AND VESSELS: No aneurysm. No dissection. Renal arteries, SMA, celiac without stenosis. RETROPERITONEUM: No retroperitoneal adenopathy, hemorrhage or masses. LARGE AND SMALL BOWEL: No dilatation. No masses. No wall thickening. APPENDIX: Not visualized. ABDOMINAL WALL: No hernia or masses. PERITONEAL CAVITY: No free air. No free fluid. No peritoneal implants or masses. PELVIS: No mass or free fluid. Normal bladder. BONES: Degenerative changes at L5-S1 with disc space narrowing and retrolisthesis of L5 on S1. OTHER: No other significant finding. IMPRESSION: No evidence of metastatic disease in the abdomen or pelvis. TECHNICAL DOCUMENTATION: JOB ID: [id number] Quality ID # 436: Final reports with documentation of one or more dose reduction techniques (e.g., Au tomated exposure control, adjustment of the mA and/or kV according to patient size, use of iterative reconstruction technique) 2010 [employer]- All Rights Reserved Reading location - IP/workstation name: [email or web address]
--- NOTE | 2019-02-25 12:20 | RADIOLOGY REPORT (SQ) ---
EXAM DESCRIPTION: MRI HEAD COMBO COMPLETED DATE/TIME: 02/25/2019 9:32 am REASON FOR STUDY: C79.31 SECONDARY MALIGNANT NEOPLASM OF BRAIN C34.31 MALIGNANT NEOPLASM OF LOWER L OBE, RIGHT BRONCHUS OR L C79.31 SECONDARY MALIGNANT NEOPLASM OF BRAIN COMPARISON: 01/30/2019. TECHNIQUE: Multiplanar imaging includes noncontrasted T1, T2, FLAIR, diffusion with ADC map and post gadolinium contrast T1 sequences. Images stored on PACS. CONTRAST TYPE AND DOSE: 15 mL Dotarem. RENAL FUNCTION: Not needed. LIMITATIONS: None. FINDINGS: ANATOMY: No anomalies. Normal vascular flow voids. Pituitary fossa normal. CSF SPACES: Normal in size and contour. No hemorrhage. CEREBRUM: Innumerable enhancing lesions throughout the cerebrum consistent with metastases. Overall distribution looks similar. 5 mm postcontrast cuts show slight progression in size of several lesion s. This includes a right periventricular lesion which involves the corpus callosum (series 9 image 2 03/12). This mass measures up to 2.1 cm in transverse dimension today. Previously, the lesion was cl oser to 18 mm. A lesion adjacent to the left posterior ventricular horn measures up to 1.4 cm today (series 9, image 17/28). Previously 8 mm. No hemorrhage or developing shift. Deep periventricular white matter signal looks generally chronic. POSTERIOR FOSSA: No signal alteration. No hemorrhage. No edema, masses, or mass effect. Internal jung tory canals, cerebellopontine angles, mastoids normal. No enhancing lesions. No abnormal enhancement post contrast. DIFFUSION IMAGING: Negative for acute or subacute infarction. ORBITS: No masses. Globes normal. PARANASAL SINUSES: No fluid levels. OTHER: No other significant finding. IMPRESSION: 1. Slight progression and supratentorial metastatic brain lesions. While overall distribution looks similar, several of the lesions look larger. EVIDENCE OF ACUTE STROKE: NO. TECHNICAL DOCUMENTATION: JOB ID: [id number] [employer]- All Rights Reserved Reading location - IP/workstation name: [email or web address]
== END ==
LOC: RAD 08:20
PROVIDERS: ATTEND Internal Medicine
DX: C34.31 Malignant neoplasm of lower lobe, right bronchus or lung (principal); C79.31 Secondary malignant neoplasm of brain
CPT/HCPCS: 70553; 71260; 74177; A9576

== ENCOUNTER 2019-03-20 21:53 | Inpatient (IN) | payer OTHER ==
[2019-03-20] MEDS ORDERED: LORAZEPAM INJ 2 MG/1 ML VIAL IV ONE ×2 (22:36→22:58)
--- NOTE | 2019-03-20 22:42 | ER Document Report ---
ED Seizure - General Chief Complaint: Seizure Stated Complaint: POSSIBLE SEIZURE Time Seen by Provider: 03/20/19 22:30 Notes: Patient is a 64-year-old male with a history of lung cancer with metastasis to the brain and a history of seizures from this that comes emergency department for chief complaint of a seizure. Patient did not have a tonic-clonic seizure, did not pass out, but he started having focal seizures on the right side with continuous twitching about 2 hours prior to arrival. Patient was given 1000 mg of Keppra by EMS, patient states he took his morning dose of Keppra, he takes 1000 mg twice a day. He is on metformin for diabetes and antihypertensives that he cannot recall. He denies any other medications. He denies head injury, fever, vomiting, headache, or any other complaints other than the seizure. He does admit to drinking "just a half of beer" earlier today. He follows with oncology Dr. Goodwin. - Related Data Allergies/Adverse Reactions: Penicillins Allergy (Verified 01/03/18 12:36) Past Medical History - General Information source: Patient, Relative - - Social History Smoking Status: Current Every Day Smoker Frequency of alcohol use: Heavy Drug Abuse: None Family History: None - Past Medical History Cardiac Medical History: Reports: Hx Coronary Artery Disease, Hx Hypercholesterolemia, Hx Hypertension Denies: Hx Heart Attack Pulmonary Medical History: Denies: Hx Asthma, Hx Bronchitis, Hx COPD, Hx Pneumonia Neurological Medical History: Reports: Hx Seizures. Denies: Hx Cerebrovascular Accident Endocrine Medical History: Reports: Hx Diabetes Mellitus Type 2 Renal/ Medical History: Denies: Hx Peritoneal Dialysis Malignancy Medical History: Reports Hx Lung Cancer Musculoskeletal Medical History: Denies Hx Arthritis Past Surgical History: Reports: Other - bronchoscopy with biopsy, brain tumor resection, colonoscopy - Immunizations Hx Diphtheria, Pertussis, Tetanus Vaccination: Yes Review of Systems - Review of Systems Constitutional: See HPI EENT: No symptoms reported Cardiovascular: No symptoms reported Respiratory: No symptoms reported Gastrointestinal: No symptoms reported Genitourinary: No symptoms reported Male Genitourinary: No symptoms reported Musculoskeletal: No symptoms reported Skin: No symptoms reported Hematologic/Lymphatic: No symptoms reported Neurological/Psychological: See HPI Physical Exam - Vital signs Vitals: Pulse Ox 99 03/20/19 22:10 - Notes Notes: GENERAL: Awake and cooperative but appears frustrated HEAD: Normocephalic, atraumatic. EYES: Pupils equal, round, and reactive to light. Extraocular movements intact. ENT: Oral mucosa moist, tongue midline. Oropharynx unremarkable. Airway patent. LUNGS: Clear to auscultation bilaterally, no wheezes, rales, or rhonchi. No respiratory distress. HEART: Regular rate and rhythm. No murmur ABDOMEN: Soft, non-tender. Non-distended. Bowel sounds present in all 4 quadrants. GENITOURINARY: Deferred EXTREMITIES: Moves all 4 extremities spontaneously. No edema, normal radial and dorsalis pedis pulses bilaterally. No cyanosis. BACK: no cervical, thoracic, lumbar midline tenderness. No saddle anesthesia, normal distal neurovascular exam. Moves all extremities in full range of motion. NEUROLOGICAL: Patient is alert and oriented x3, normal speech, patient having what appears to be jerking contractions of the right arm and right leg in unasyn, irregular but continuous. Normal left-sided exam and normal strength. PSYCH: Somewhat irritable SKIN: Warm, dry, normal turgor. No rashes or lesions noted. Course - Re-evaluation Re-evalutation: After treatment with 2 mg of IV Ativan patient did have resolution of his a pparent partial seizure activity. However he still has difficulty with coordination of the right side of his body. CT of the head was performed and does not show significant change but does show previous mass with surrounding edema. Patient reevaluated, patient has resumed partial seizure activity. Nursing tells me that patient resolved and restarted again previously when I was not in the room. Patient will be given Valium, discussed with Dr. Fields, patient will be given dexamethasone as well. I discussed with at length, she states patient had a similar situation back in December where he had right-sided hemiparesis and partial seizures but this did resolve after admission here with IV steroids. I called and spoke with Dr. Tam, oncologist caring for the patient, she states patient is already completed treatment but if patient has had multiple partial seizures she recommends admission to the hospitalist with IV steroids and she will consult on the patient. 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 They recommend Keppra 1500 mg twice a day, if he has a seizure despite this they recommend I Dilantin 20 uriel per kick loading dose, they also recommend dexamethasone q6 hours at 8 mg. They state that patient most likely will not need a neurosurgeon to intervene, they recommend patient's oncologist weigh in on this. I spoke with Dr. Tam again, she states that since this is not a primary and this is a metastasis the focus would be on treatment of the primary and he would have to stop his treatments in order for a neurosurgeon to intervene and this never happens. Patient will not require neurosurgery. Spoke with Dr. Redmond, he accepts to the hospital. - Vital Signs Vital signs: Temp Pulse Resp BP Pulse Ox 26 H 108/85 97 03/21/19 04:01 03/21/19 04:01 03/21/19 04:01 - Laboratory Result Diagrams: 03/20/19 23:20 03/20/19 23:20 Laboratory results interpreted by me: 03/20/19 03/20/19 23:20 23:20 RBC 4.25 L RDW 14.6 H Sodium 134.9 L Carbon Dioxide 21 L Total Protein 5.9 L Albumin 3.4 L Discharge - Discharge Clinical Impression: Partial seizure, Brain mass Condition: Stable Disposition: ADMITTED INPATIENT Admitting Provider: Ruy (Hospitalist) Unit Admitted: Telemetry
[2019-03-20] MEDS ORDERED: NORMAL SALINE 1000 ML 1,000 ML IV ONE (23:22)
[2019-03-20 23:48] LABS: ABSOLUTE LYMPHOCYTES (AUTO) 1.2 10^3/uL (0.5-4.7); ABSOLUTE MONOCYTES (AUTO) 0.6 10^3/uL (0.1-1.4); ABSOLUTE NEUT (AUTO) 2.7 10^3/uL (1.7-8.2); BASOPHILS % (AUTO) 0.5 % (0-2); EOSINOPHILS % (AUTO) 0.8 % (0-6); HEMATOCRIT 39.4 % (37.9-51.0); HEMOGLOBIN 13.5 g/dL (13.5-17.0); LYMPHOCYTES % (AUTO) 26.9 % (13-45); MEAN CORPUSCULAR HEMOGLOBIN 31.9 pg (27.0-33.4); MEAN CORPUSCULAR HGB CONC 34.4 g/dL (32.0-36.0); MEAN CORPUSCULAR VOLUME 93 fl (80-97); MONOCYTES % (AUTO) 12.4 % (3-13); PLATELET COUNT 270 10^3/uL (150-450); RED BLOOD COUNT 4.25 10^6/uL (4.35-5.55); RED CELL DISTRIBUTION WIDTH 14.6 % (11.5-14.0); SEGMENTED NEUTROPHILS % (AUTO) 59.4 % (42-78); TOTAL CELLS COUNTED % (AUTO) 100 %; WHITE BLOOD COUNT 4.5 10^3/uL (4.0-10.5)
[2019-03-20 23:59] LABS: ALBUMIN 3.4 g/dL (3.5-5.0); ALCOHOL < 10 mg/dL (NONE DETECTED); ALKALINE PHOSPHATASE 47 U/L (38-126); ANION GAP 7 (5-19); ASPARTATE AMINO TRANSFERASE 24 U/L (17-59); BILIRUBIN,TOTAL 0.6 mg/dL (0.2-1.3); BLOOD UREA NITROGEN 8 mg/dL (7-20); CALCIUM 9.1 mg/dL (8.4-10.2); CARBON DIOXIDE 21 mmol/L (22-30); CHLORIDE 107 mmol/L (98-107); GLUCOSE 82 mg/dL (75-110); POTASSIUM 4.2 mmol/L (3.6-5.0); TOTAL PROTEIN 5.9 g/dL (6.3-8.2)
--- NOTE | 2019-03-21 00:53 | RADIOLOGY REPORT (SQ) ---
EXAM DESCRIPTION: CT HEAD WITHOUT IV CONTRAST COMPLETED DATE/TME: 03/20/2019 22:37 CLINICAL HISTORY: seizure, hx brain mass COMPARISON: 02/25/2019 TECHNIQUE: Axial CT of the head obtained from the skull apex to the skull base without contrast. FINDINGS: No acute intracranial hemorrhage identified. Intra-axial mass in the high right frontoparietal white matter measuring 2.3 x 1.5 cm with surrounding vasogenic edema. Vasogenic edema in the left posterior cerebral white matter. Known intra-axial masses in the left posterior cerebral white matter are not well delineated on this study due to lack of IV contrast. Mild local mass effect without significant midline shift. The ventricular system and sulcal spaces are mildly enlarged. Scattered areas of hypodensity throughout the supratentorial white matter are nonspecific and may be related to chronic small vessel ischemic change. Region of encephalomalacia subjacent to the craniotomy in the right parieto-occipital region. Polypoid mucosal thickening of the right maxillary sinus. Mastoid air cells are well aerated. Posterior craniotomy. Visualized orbits and globes are unremarkable. Atherosclerotic calcification of the intracranial internal carotid arteries. IMPRESSION: 1. No acute intracranial hemorrhage. 2. Stable appearance of the supratentorial vasogenic edema bilaterally secondary to known metastatic disease with mild local mass effect and no significant midline shift. Overall characterization of masses is suboptimal due to lack of IV contrast. If further characterization is required contrast-enhanced MRI would be recommended. This exam was performed according to our departmental dose-optimization program, which includes automated exposure control, adjustment of the mA and/or kV according to patient size and/or use of iterative reconstruction technique.
[2019-03-21] MEDS ORDERED: DEXAMETHASONE SOD PHOS INJ 10 MG/1 ML VIAL IV ONE (02:10)
[2019-03-21] MEDS ORDERED: DIAZEPAM INJ 10 MG/2 ML DISP.SYRIN IV ONE (02:10)
[2019-03-21] MEDS ORDERED: ACETAMINOPHEN 650 MG SUPP.RECT PR PRN (06:08)
[2019-03-21] MEDS ORDERED: ONDANSETRON HCL INJ/PF 4 MG/2 ML SDV IV PRN (06:08)
[2019-03-21] MEDS ORDERED: IPRATROPIUM/ALBUTEROL 0.5-2.5 MG/3 ML AMPUL NEB PRN (06:08)
[2019-03-21] MEDS ORDERED: DEXTROSE 50%-WATER 25 GM/50 ML DISP.SYRIN IV PRN ×4 (06:12→06:37)
[2019-03-21] MEDS ORDERED: DEXTROSE 40% GEL 15 GM TUBE PO PRN ×4 (06:12→06:37)
[2019-03-21] MEDS ORDERED: GLUCAGON,HUMAN RECOMB 1 MG INJ IM PRN ×2 (06:12→06:37)
[2019-03-21] MEDS ORDERED: ACETAMINOPHEN 325 MG TABLET PO PRN (06:37)
--- NOTE | 2019-03-21 06:39 | PDOC H&P ---
History of Present Illness Admission Date/PCP: DEUCE COATES MD Patient complains of: Seizure History of Present Illness: SAQIB HILLS is a 64 year old male with a past medical history of lung cancer complicated with mets to the brain who presents after a prolonged episode of right-sided twitching which reoccurred twice in the emergency department. No tonic-clonic seizure is reported or witnessed he is treated with Ativan x2 followed by Valium without recurrence of seizure. Neurology at [facility] is consulted recommending dexamethasone, Keppra and Dilantin for recurrence. Patient denies recent change in medications, missing doses and is otherwise felt well his work-up is negative for metabolic derangement and CT head is stable from prior with bilateral supratentorial edema but without shift. He is awake and alert without distress and referred to the hospitalist for admission. Past Medical History Cardiac Medical History: Reports: Coronary Artery Disease, Hyperlipidema, Hypertension Denies: Myocardial Infarction Pulmonary Medical History: Denies: Asthma, Bronchitis, Chronic Obstructive Pulmonary Disease (COPD), Pneumonia Neurological Medical History: Reports: Seizures Endocrine Medical History: Reports: Diabetes Mellitus Type 2 Malignancy Medical History: Reports: Lung Cancer Musculoskeltal Medical History: Denies: Arthritis Hematology: Denies: Anemia Past Surgical History Past Surgical History: Reports: Other - bronchoscopy with biopsy, brain tumor resection, colonoscopy Social History Information Source: Patient, Emergency Med Personnel, [facility] Records Lives with: Spouse/Significant other Smoking Status: Current Every Day Smoker Frequency of Alcohol Use: Occasional Hx Recreational Drug Use: No Drugs: None Hx Prescription Drug Abuse: No - Advance Directive Resuscitation Status: Full Code Family History Family History: None Parental Family History Reviewed: Yes Children Family History Reviewed: Yes Sibling(s) Family History Reviewed.: Yes Medication/Allergy Home Medications: Allopurinol [Zyloprim 300 mg Tablet] 300 mg PO DAILY 12/18/18 Atorvastatin Calcium [Lipitor 40 mg Tablet] 40 mg PO QHS 12/18/18 Metformin HCl [Metformin HCl ER] 500 mg PO DAILY 12/18/18 Nicotine [Nicoderm Cq] 1 patch TOP DAILY 12/18/18 Dexamethasone [Decadron 4 mg Tablet] 6 mg PO BID 20 Days #40 tablet 12/22/18 Levetiracetam 1,500 mg PO Q12 30 Days #60 tab 12/22/18 Lisinopril [Prinivil 5 mg Tablet] 5 mg PO DAILY 30 Days #30 tablet 12/22/18 Pantoprazole Sodium 40 mg PO BID 20 Days #40 tablet. 12/22/18 Allergies/Adverse Reactions: Penicillins Allergy (Verified 01/03/18 12:36) Review of Systems Constitutional: PRESENT: as per HPI. ABSENT: chills, fever(s), headache(s), weight gain, weight loss Eyes: ABSENT: visual disturbances Ears: ABSENT: hearing changes Cardiovascular: ABSENT: chest pain, dyspnea on exertion, edema, orthropnea, palpitations Respiratory: ABSENT: cough, hemoptysis Gastrointestinal: ABSENT: abdominal pain, constipation, diarrhea, hematemesis, hematochezia, nausea, vomiting Genitourinary: ABSENT: dysuria, hematuria Musculoskeletal: ABSENT: joint swelling Integumentary: ABSENT: rash, wounds Neurological: ABSENT: abnormal gait, abnormal speech, confusion, dizziness, f ocal weakness, syncope Psychiatric: ABSENT: anxiety, depression, homidical ideation, suicidal ideation Endocrine: ABSENT: cold intolerance, heat intolerance, polydipsia, polyuria Hematologic/Lymphatic: ABSENT: easy bleeding, easy bruising Physical Exam Vital Signs: Temp Pulse Resp BP Pulse Ox 26 H 108/85 97 03/21/19 04:01 03/21/19 04:01 03/21/19 04:01 Intake & Output 03/19/19 03/20/19 03/21/19 11:59 11:59 11:59 Intake Total 1000 Balance 1000 Weight 75.75 kg General appearance: PRESENT: no acute distress, well-developed, well-nourished Head exam: PRESENT: atraumatic, normocephalic Eye exam: PRESENT: conjunctiva pink, EOMI, PERRLA. ABSENT: scleral icterus Ear exam: PRESENT: normal external ear exam Mouth exam: PRESENT: moist, tongue midline Neck exam: ABSENT: carotid bruit, JVD, lymphadenopathy, thyromegaly Respiratory exam: PRESENT: crackles, prolonged expiratory phas. ABSENT: accessory muscle use, rales, rhonchi, wheezes Cardiovascular exam: PRESENT: RRR. ABSENT: diastolic murmur, rubs, systolic murmur Pulses: PRESENT: normal dorsalis pedis pul Vascular exam: PRESENT: normal capillary refill GI/Abdominal exam: PRESENT: normal bowel sounds, soft. ABSENT: distended, guarding, mass, organolmegaly, rebound, tenderness Rectal exam: PRESENT: deferred Extremities exam: PRESENT: full ROM. ABSENT: calf tenderness, clubbing, pedal edema Neurological exam: PRESENT: alert, awake, oriented to person, oriented to place, oriented to time, oriented to situation, CN II-XII grossly intact. ABSENT: motor sensory deficit Psychiatric exam: PRESENT: appropriate affect, normal mood. ABSENT: homicidal ideation, suicidal ideation Skin exam: PRESENT: dry, intact, warm. ABSENT: cyanosis, rash Results Laboratory Results: 03/20/19 23:20 03/20/19 23:20 03/20/19 03/20/19 23:20 23:20 WBC 4.5 RBC 4.25 L Hgb 13.5 Hct 39.4 MCV 93 MCH 31.9 MCHC 34.4 RDW 14.6 H Plt Count 270 Seg Neutrophils % 59.4 Sodium 134.9 L Potassium 4.2 Chloride 107 Carbon Dioxide 21 L Anion Gap 7 BUN 8 Creatinine 0.54 Est GFR ( Amer) > 60 Glucose 82 Calcium 9.1 Magnesium 1.7 Total Bilirubin 0.6 AST 24 Alkaline Phosphatase 47 Total Protein 5.9 L Albumin 3.4 L Lipase 152.6 Impressions: Head CT 03/20/19 22:37 IMPRESSION: 1. No acute intracranial hemorrhage. 2. Stable appearance of the supratentorial vasogenic edema bilaterally secondary to known metastatic disease with mild local mass effect and no significant midline shift. Overall characterization of masses is suboptimal due to lack of IV contrast. If further characterization is required contrast-enhanced MRI would be recommended. This exam was performed according to our departmental dose-optimization program, which includes automated exposure control, adjustment of the mA and/or kV according to patient size and/or use of iterative reconstruction technique. Assessment and Plan - Diagnosis (1) Partial seizure Is this a current diagnosis for this admission?: Yes Plan: Secondary to brain metastasis with vasogenic genic edema. Continue dexamethasone 8 mg every 6, Keppra 1500 mg every 12 and Dilantin loading dose as needed breakthrough seizure. Patient is not a candidate for neurosurgery. (2) Lung cancer metastatic to brain Is this a current diagnosis for this admission?: Yes Plan: Hematology oncologist Dr. Martinez consulted (3) ETOH abuse Is this a current diagnosis for this admission?: Yes Plan: Education, thiamine, benzodiazepine as needed (4) Diabetes Is this a current diagnosis for this admission?: Yes Plan: Sliding scale [employer] - Time Time Spent with patient: 25-34 minutes - Inpatient Certification Medical Necessity: Need Close Monitoring Due to Risk of Patient Decompensation
[2019-03-21] MEDS: IPRATROPIUM/ALBUTEROL 0.5-2.5 MG/3 ML AMPUL NEB SCH ×2 (07:44→21:05)
--- NOTE | 2019-03-21 08:56 | PDOC CONSULTATION ---
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 However right lower lobe indicated progression of disease, so the plan was to initiate Keytruda, he got that dose on 03/13/2019. Of note, he was on a higher dose of Keppra as an outpatient but felt like he was getting oversedated, so dosing was decreased. Over the last few days he is experienced extreme twitching of the right upper and lower extremity. Ultimately was brought into the ED with continued twitching that looked like seizure-like activity. He was increased with his Keppra and loaded, and the twitching has decreased but still present in the upper extremity. Otherwise his mental status seems okay this morning. Past Medical History Cardiac Medical History: Reports: Coronary Artery Disease, Hyperlipidema, Hypertension Denies: Myocardial Infarction Pulmonary Medical History: Denies: Asthma, Bronchitis, Chronic Obstructive Pulmonary Disease (COPD), Pneumonia Neurological Medical History: Reports: Seizures Endocrine Medical History: Reports: Diabetes Mellitus Type 2 Malignancy Medical History: Reports: Lung Cancer Musculoskeltal Medical History: Denies: Arthritis Hematology: Denies: Anemia Past Surgical History Past Surgical History: Reports: Other - bronchoscopy with biopsy, brain tumor resection, colonoscopy Social History Information Source: Patient Lives with: Spouse/Significant other Smoking Status: Current Every Day Smoker Frequency of Alcohol Use: Occasional Hx Recreational Drug Use: No Drugs: None Hx Prescription Drug Abuse: No - Advance Directive Resuscitation Status: Full Code Family History Family History: None Parental Family History Reviewed: Yes Children Family History Reviewed: Yes Sibling(s) Family History Reviewed.: Yes Medication/Allergy Allergies/Adverse Reactions: Penicillins Allergy (Verified 01/03/18 12:36) Review of Systems Constitutional: PRESENT: fatigue, weakness Cardiovascular: PRESENT: as per HPI Gastrointestinal: ABSENT: abdominal pain, constipation, diarrhea, hematemesis, hematochezia, nausea, vomiting Integumentary: ABSENT: rash, wounds Neurological: PRESENT: abnormal gait, tremor(s), weakness Physical Exam Vital Signs: Temp Pulse Resp BP Pulse Ox 85 24 H 137/84 H 96 03/21/19 07:44 03/21/19 08:00 03/21/19 07:00 03/21/19 08:00 Intake & Output 03/20/19 03/21/19 03/22/19 06:59 06:59 06:59 Intake Total 1000 Balance 1000 Weight 75.75 kg General appearance: PRESENT: no acute distress Head exam: PRESENT: atraumatic Mouth exam: PRESENT: dry mucosa Neck exam: ABSENT: carotid bruit, JVD, lymphadenopathy, thyromegaly Respiratory exam: PRESENT: clear to auscultation roman. ABSENT: rales, rhonchi, wheezes Cardiovascular exam: PRESENT: RRR. ABSENT: diastolic murmur, rubs, systolic murmur GI/Abdominal exam: PRESENT: normal bowel sounds, soft. ABSENT: distended, guarding, mass, organolmegaly, rebound, tenderness Rectal exam: PRESENT: deferred Neurological exam: PRESENT: alert, awake, oriented to person, oriented to place, oriented to time, other - Right upper and lower extremity twitching Results Laboratory Results: 03/20/19 23:20 03/20/19 23:20 03/20/19 03/20/19 23:20 23:20 WBC 4.5 RBC 4.25 L Hgb 13.5 Hct 39.4 MCV 93 MCH 31.9 MCHC 34.4 RDW 14.6 H Plt Count 270 Seg Neutrophils % 59.4 Sodium 134.9 L Potassium 4.2 Chloride 107 Carbon Dioxide 21 L Anion Gap 7 BUN 8 Creatinine 0.54 Est GFR ( Amer) > 60 Glucose 82 Calcium 9.1 Magnesium 1.7 Total Bilirubin 0.6 AST 24 Alkaline Phosphatase 47 Total Protein 5.9 L Albumin 3.4 L Lipase 152.6 Impressions: Head CT 03/20/19 22:37 IMPRESSION: 1. No acute intracranial hemorrhage. 2. Stable appearance of the supratentorial vasogenic edema bilaterally secondary to known metastatic disease with mild local mass effect and no significant midline shift. Overall characterization of masses is suboptimal due to lack of IV contrast. If further characterization is required contrast-enhanced MRI would be recommended. This exam was performed according to our departmental dose-optimization program, which includes automated exposure control, adjustment of the mA and/or kV according to patient size and/or use of iterative reconstruction technique. Assessment & Plan - Diagnosis (1) Partial seizure Is this a current diagnosis for this admission?: Yes Plan: Does seem like a partial seizure of the right upper extremity, agree with increased Keppra and recommendations from hospitalist as well as neurology team at [facility]. (2) Lung cancer metastatic to brain Is this a current diagnosis for this admission?: Yes Plan: Imaging of the brain indicates overall stable disease, status post radiation to the brain. (3) Primary cancer of right lower lobe of lung Is this a current diagnosis for this admission?: Yes Plan: Stage IV small cell lung cancer, with progression in the right lower lobe noted on imaging about 3 weeks ago, recently started on Keytruda on 03/13/2019. He will continue on that as an outpatient. This should not have caused any of the current partial seizure ongoing. - Time Time Spent: Greater than 70 Minutes
[2019-03-21] MEDS: LEVETIRACETAM 500 MG TABLET PO SCH ×2 (09:34→22:44)
[2019-03-21] MEDS: THIAMINE HCL 100 MG TABLET PO SCH (09:34)
[2019-03-21] MEDS: DEXAMETHASONE 4 MG TABLET PO SCH ×3 (13:36→23:53)
[2019-03-21] MEDS: INSULIN LISPRO 100 UNIT/ML 3 ML VIAL SUBCUT SCH ×3 (14:42→23:53)
[2019-03-21] MEDS: HEPARIN SOD (PORCINE) 5,000 UNIT/ML 1 ML VIAL SUBCUT SCH ×2 (14:47→22:44)
[2019-03-22] MEDS: HEPARIN SOD (PORCINE) 5,000 UNIT/ML 1 ML VIAL SUBCUT SCH ×3 (05:12→21:18)
[2019-03-22] MEDS: INSULIN LISPRO 100 UNIT/ML 3 ML VIAL SUBCUT SCH ×4 (05:16→23:04)
[2019-03-22] MEDS: DEXAMETHASONE 4 MG TABLET PO SCH ×4 (05:20→23:11)
[2019-03-22 06:29] LABS: ABSOLUTE LYMPHOCYTES (AUTO) 0.5 10^3/uL (0.5-4.7); ABSOLUTE MONOCYTES (AUTO) 0.2 10^3/uL (0.1-1.4); ABSOLUTE NEUT (AUTO) 4.4 10^3/uL (1.7-8.2); BASOPHILS % (AUTO) 0.5 % (0-2); HEMATOCRIT 39.4 % (37.9-51.0); HEMOGLOBIN 14.1 g/dL (13.5-17.0); LYMPHOCYTES % (AUTO) 9.6 % (13-45); MEAN CORPUSCULAR HGB CONC 35.7 g/dL (32.0-36.0); MEAN CORPUSCULAR VOLUME 90 fl (80-97); MONOCYTES % (AUTO) 3.5 % (3-13); PLATELET COUNT 283 10^3/uL (150-450); RED CELL DISTRIBUTION WIDTH 14.5 % (11.5-14.0); SEGMENTED NEUTROPHILS % (AUTO) 86.4 % (42-78); TOTAL CELLS COUNTED % (AUTO) 100 %
[2019-03-22 06:43] LABS: ANION GAP 10 (5-19); BLOOD UREA NITROGEN 12 mg/dL (7-20); CALCIUM 9.2 mg/dL (8.4-10.2); CARBON DIOXIDE 21 mmol/L (22-30); CHLORIDE 106 mmol/L (98-107); GLUCOSE 153 mg/dL (75-110); POTASSIUM 3.8 mmol/L (3.6-5.0)
[2019-03-22] MEDS: IPRATROPIUM/ALBUTEROL 0.5-2.5 MG/3 ML AMPUL NEB SCH ×2 (08:33→20:48)
[2019-03-22] MEDS: THIAMINE HCL 100 MG TABLET PO SCH (09:16)
[2019-03-22] MEDS: LEVETIRACETAM 500 MG TABLET PO SCH ×2 (09:16→21:19)
--- NOTE | 2019-03-22 09:28 | PDOC PROGRESS REPORT ---
Subjective Progress Note for:: 03/22/19 Subjective:: Seems to still have the upper extremity twitching but feels like it is much better, as per nursing. See if patient can walk, may need physical therapy consultation Reason For Visit: LUNG CA AND BRAIN MET W SEIZURES Physical Exam Vital Signs: Temp Pulse Resp BP Pulse Ox 98.1 F 66 16 120/74 98 03/22/19 07:52 03/22/19 07:52 03/22/19 07:52 03/22/19 07:52 03/22/19 07:52 Intake & Output 03/21/19 03/22/19 03/23/19 06:59 06:59 06:59 Intake Total 1000 480 Output Total 675 Balance 1000 -195 Weight 75.75 kg 67.7 kg General appearance: PRESENT: no acute distress, well-developed, well-nourished Head exam: PRESENT: atraumatic, normocephalic Eye exam: PRESENT: conjunctiva pink, EOMI, PERRLA. ABSENT: scleral icterus Ear exam: PRESENT: normal external ear exam Mouth exam: PRESENT: moist, tongue midline Neck exam: ABSENT: carotid bruit, JVD, lymphadenopathy, thyromegaly Respiratory exam: PRESENT: clear to auscultation roman. ABSENT: rales, rhonchi, wheezes Cardiovascular exam: PRESENT: RRR. ABSENT: diastolic murmur, rubs, systolic murmur Pulses: PRESENT: normal dorsalis pedis pul Vascular exam: PRESENT: normal capillary refill GI/Abdominal exam: PRESENT: normal bowel sounds, soft. ABSENT: distended, guarding, mass, organolmegaly, rebound, tenderness Rectal exam: PRESENT: deferred Extremities exam: PRESENT: full ROM. ABSENT: calf tenderness, clubbing, pedal edema Neurological exam: PRESENT: alert, awake, oriented to person, oriented to place, oriented to time, oriented to situation, CN II-XII grossly intact. ABSENT: motor sensory deficit Psychiatric exam: PRESENT: appropriate affect, normal mood. ABSENT: homicidal ideation, suicidal ideation Skin exam: PRESENT: dry, intact, warm. ABSENT: cyanosis, rash Results Laboratory Results: 03/22/19 05:47 03/22/19 05:47 03/22/19 03/22/19 05:47 05:47 WBC 5.0 RBC 4.40 Hgb 14.1 Hct 39.4 MCV 90 MCH 32.0 MCHC 35.7 RDW 14.5 H Plt Count 283 Seg Neutrophils % 86.4 H Sodium 136.8 L Potassium 3.8 Chloride 106 Carbon Dioxide 21 L Anion Gap 10 BUN 12 Creatinine 0.43 L Est GFR ( Amer) > 60 Glucose 153 H Calcium 9.2 Impressions: Head CT 03/20/19 22:37 IMPRESSION: 1. No acute intracranial hemorrhage. 2. Stable appearance of the supratentorial vasogenic edema bilaterally secondary to known metastatic disease with mild local mass effect and no significant midline shift. Overall characterization of masses is suboptimal due to lack of IV contrast. If further characterization is required contrast-enhanced MRI would be recommended. This exam was performed according to our departmental dose-optimization program, which includes automated exposure control, adjustment of the mA and/or kV according to patient size and/or use of iterative reconstruction technique. Assessment & Plan - Diagnosis (1) Partial seizure Is this a current diagnosis for this admission?: Yes Plan: Improved, continue per hospitalist team (2) Lung cancer metastatic to brain Is this a current diagnosis for this admission?: Yes Plan: Plan to continue therapy as an outpatient (3) Primary cancer of right lower lobe of lung Is this a current diagnosis for this admission?: Yes Plan: Plan to continue therapy as an outpatient - Time Time Spent with patient: 15-24 minutes
--- NOTE | 2019-03-22 12:26 | PDOC PROGRESS REPORT ---
Subjective Progress Note for:: 03/22/19 Subjective:: Patient was seen in his room with his , as well as the RN. I had talked to his about her expectations as well as prognosis and she does agree that further discussions with comfort care as well as social work administrator will be appropriate. Patient was. Sh and adamant about going home today. I have told him that we will reevaluate in the a.m. The is social work administrator and hospice care consult and this has been placed Patient continues to have focal seizures especially in the right upper extremity although seems to be better controlled today Reason For Visit: LUNG CA AND BRAIN MET W SEIZURES Physical Exam Vital Signs: Temp Pulse Resp BP Pulse Ox 98.1 F 86 16 120/74 98 03/22/19 07:52 03/22/19 08:30 03/22/19 08:30 03/22/19 07:52 03/22/19 08:30 Intake & Output 03/21/19 03/22/19 03/23/19 06:59 06:59 06:59 Intake Total 1000 480 Output Total 675 Balance 1000 -195 Weight 75.75 kg 67.7 kg General appearance: PRESENT: no acute distress Head exam: PRESENT: atraumatic Ear exam: ABSENT: bleeding Neck exam: PRESENT: full ROM. ABSENT: carotid bruit Respiratory exam: PRESENT: clear to auscultation roman, unlabored. ABSENT: accessory muscle use, rhonchi Cardiovascular exam: PRESENT: RRR, +S1, +S2 GI/Abdominal exam: PRESENT: soft. ABSENT: tenderness Rectal exam: PRESENT: deferred Neurological exam: PRESENT: alert, awake, oriented to person, oriented to place, oriented to situation, other - Resting tremors as well as localized right upper extremity tremors and seizure-like activity Results Laboratory Results: 03/22/19 05:47 03/22/19 05:47 03/22/19 03/22/19 05:47 05:47 WBC 5.0 RBC 4.40 Hgb 14.1 Hct 39.4 MCV 90 MCH 32.0 MCHC 35.7 RDW 14.5 H Plt Count 283 Seg Neutrophils % 86.4 H Sodium 136.8 L Potassium 3.8 Chloride 106 Carbon Dioxide 21 L Anion Gap 10 BUN 12 Creatinine 0.43 L Est GFR ( Amer) > 60 Glucose 153 H Calcium 9.2 Impressions: Head CT 03/20/19 22:37 IMPRESSION: 1. No acute intracranial hemorrhage. 2. Stable appearance of the supratentorial vasogenic edema bilaterally secondary to known metastatic disease with mild local mass effect and no significant midline shift. Overall characterization of masses is suboptimal due to lack of IV contrast. If further characterization is required contrast-enhanced MRI would be recommended. This exam was performed according to our departmental dose-optimization program, which includes automated exposure control, adjustment of the mA and/or kV according to patient size and/or use of iterative reconstruction technique. Assessment and Plan - Diagnosis (1) Brain mass Is this a current diagnosis for this admission?: Yes Plan: This is apparently unchanged from previous and likely responsible for patient symptoms. We will continue with the dexamethasone (2) Partial seizure Is this a current diagnosis for this admission?: Yes Plan: Secondary to brain metastasis with vasogenic edema. Continue dexamethasone 8 mg every 6, Keppra 1500 mg every 12 and Dilantin loading dose as needed breakthrough seizure. Patient is not a candidate for neurosurgery. Overall prognosis is pretty poor (3) Primary cancer of right lower lobe of lung Is this a current diagnosis for this admission?: Yes Plan: Patient has stage IV cancer. He has been seen by oncologist. Patient was recently started on Keytruda and this is to be continued (4) Lung cancer metastatic to brain Is this a current diagnosis for this admission?: Yes Plan: Continue Keytruda, prognosis is poor - Plan Summary Summary: Overall prognosis is poor. Patient will benefit from a hospice care consult. I have discussed this with his who is agreeable to the plan. It appears that patient will benefit from end-of-life discussions as his prognosis is pretty poor - Time Time Spent with patient: 25-34 minutes Anticipated discharge: Other - TBD
[2019-03-22] MEDS: METFORMIN HCL 500 MG TABLET PO SCH (18:05)
[2019-03-23] MEDS: HEPARIN SOD (PORCINE) 5,000 UNIT/ML 1 ML VIAL SUBCUT SCH ×3 (05:05→21:08)
[2019-03-23] MEDS: INSULIN LISPRO 100 UNIT/ML 3 ML VIAL SUBCUT SCH ×4 (05:05→23:30)
[2019-03-23] MEDS: DEXAMETHASONE 4 MG TABLET PO SCH ×4 (06:20→23:30)
[2019-03-23] MEDS: IPRATROPIUM/ALBUTEROL 0.5-2.5 MG/3 ML AMPUL NEB SCH ×2 (08:55→20:44)
--- NOTE | 2019-03-23 09:43 | PDOC PROGRESS REPORT ---
Subjective Progress Note for:: 03/23/19 Subjective:: Reviewed chart, patient has been functionally very poor, PS has been very poor, hospitalist team is talked to them about comfort care, seems interested. We will talk further with them today. Reason For Visit: LUNG CA AND BRAIN MET W SEIZURES Physical Exam Vital Signs: Temp Pulse Resp BP Pulse Ox 98.2 F 68 16 127/78 H 100 03/23/19 07:58 03/23/19 07:58 03/23/19 07:58 03/23/19 07:58 03/23/19 07:58 Intake & Output 03/22/19 03/23/19 03/24/19 06:59 06:59 06:59 Intake Total 480 750 Output Total 675 1350 Balance -195 -600 Weight 67.7 kg 67.2 kg General appearance: PRESENT: no acute distress, well-developed, well-nourished Head exam: PRESENT: atraumatic, normocephalic Eye exam: PRESENT: conjunctiva pink, EOMI, PERRLA. ABSENT: scleral icterus Ear exam: PRESENT: normal external ear exam Mouth exam: PRESENT: moist, tongue midline Neck exam: ABSENT: carotid bruit, JVD, lymphadenopathy, thyromegaly Respiratory exam: PRESENT: clear to auscultation roman. ABSENT: rales, rhonchi, wheezes Cardiovascular exam: PRESENT: RRR. ABSENT: diastolic murmur, rubs, systolic murmur Pulses: PRESENT: normal dorsalis pedis pul Vascular exam: PRESENT: normal capillary refill GI/Abdominal exam: PRESENT: normal bowel sounds, soft. ABSENT: distended, guarding, mass, organolmegaly, rebound, tenderness Rectal exam: PRESENT: deferred Extremities exam: PRESENT: full ROM. ABSENT: calf tenderness, clubbing, pedal edema Neurological exam: PRESENT: alert, awake, oriented to person, oriented to place, oriented to time, oriented to situation, CN II-XII grossly intact. ABSENT: motor sensory deficit Psychiatric exam: PRESENT: appropriate affect, normal mood. ABSENT: homicidal ideation, suicidal ideation Skin exam: PRESENT: dry, intact, warm. ABSENT: cyanosis, rash Results Laboratory Results: 03/22/19 05:47 03/22/19 05:47 Impressions: Head CT 03/20/19 22:37 IMPRESSION: 1. No acute intracranial hemorrhage. 2. Stable appearance of the supratentorial vasogenic edema bilaterally secondary to known metastatic disease with mild local mass effect and no significant midline shift. Overall characterization of masses is suboptimal due to lack of IV contrast. If further characterization is required contrast-enhanced MRI would be recommended. This exam was performed according to our departmental dose-optimization program, which includes automated exposure control, adjustment of the mA and/or kV according to patient size and/or use of iterative reconstruction technique. Assessment & Plan - Diagnosis (1) Partial seizure Is this a current diagnosis for this admission?: Yes Plan: Plan per hospitalist team (2) Lung cancer metastatic to brain Is this a current diagnosis for this admission?: Yes Plan: Discussed comfort care and hospice with family and see how they feel, however we just started Keytruda and he only received a single dose about a week before admission (3) Primary cancer of right lower lobe of lung Is this a current diagnosis for this admission?: Yes Plan: As above - Time Time Spent with patient: 35 or more minutes
[2019-03-23] MEDS: LEVETIRACETAM 500 MG TABLET PO SCH ×2 (10:14→21:08)
[2019-03-23] MEDS: THIAMINE HCL 100 MG TABLET PO SCH (10:15)
[2019-03-23] MEDS: METFORMIN HCL 500 MG TABLET PO SCH ×2 (10:15→17:51)
--- NOTE | 2019-03-23 15:38 | PDOC PROGRESS REPORT ---
Subjective Progress Note for:: 03/23/19 Subjective:: patient requesting to be discharged home. I discussed with his again. She confirms that she is unable to take care of him at home. And would like more information about hospice and comfort care. Apparently this has not been addressed prior to now Reason For Visit: LUNG CA AND BRAIN MET W SEIZURES Physical Exam Vital Signs: Temp Pulse Resp BP Pulse Ox 98.1 F 70 18 131/77 H 98 03/23/19 12:00 03/23/19 12:00 03/23/19 12:00 03/23/19 12:00 03/23/19 12:00 Intake & Output 03/22/19 03/23/19 03/24/19 06:59 06:59 06:59 Intake Total 480 750 Output Total 675 1350 Balance -195 -600 Weight 67.7 kg 67.2 kg General appearance: PRESENT: no acute distress, well-developed Head exam: PRESENT: atraumatic, normocephalic Eye exam: PRESENT: conjunctiva pink, EOMI, PERRLA. ABSENT: scleral icterus Neck exam: ABSENT: carotid bruit, JVD, lymphadenopathy, thyromegaly Respiratory exam: PRESENT: clear to auscultation roman. ABSENT: rales, rhonchi, wheezes Cardiovascular exam: PRESENT: RRR, +S1, +S2. ABSENT: diastolic murmur, rubs, systolic murmur GI/Abdominal exam: PRESENT: normal bowel sounds, soft. ABSENT: distended, guarding, mass, organolmegaly, rebound, tenderness Rectal exam: PRESENT: deferred Extremities exam: PRESENT: full ROM. ABSENT: calf tenderness, clubbing, pedal edema Musculoskeletal exam: PRESENT: other - Resting tremors twitches especially in the right upper extremity Neurological exam: PRESENT: alert, awake, oriented to person, oriented to place, oriented to time, oriented to situation. ABSENT: motor sensory deficit Psychiatric exam: PRESENT: appropriate affect, normal mood. ABSENT: homicidal ideation, suicidal ideation Skin exam: PRESENT: dry, intact, warm. ABSENT: cyanosis, rash Results Laboratory Results: 03/22/19 05:47 03/22/19 05:47 Impressions: Head CT 03/20/19 22:37 IMPRESSION: 1. No acute intracranial hemorrhage. 2. Stable appearance of the supratentorial vasogenic edema bilaterally secondary to known metastatic disease with mild local mass effect and no significant midline shift. Overall characterization of masses is suboptimal due to lack of IV contrast. If further characterization is required contrast-enhanced MRI would be recommended. This exam was performed according to our departmental dose-optimization program, which includes automated exposure control, adjustment of the mA and/or kV according to patient size and/or use of iterative reconstruction technique. Assessment and Plan - Diagnosis (1) Primary cancer of right lower lobe of lung Is this a current diagnosis for this admission?: Yes Plan: Patient's prognosis is pretty poor unfortunately. He definitely will benefit from comfort care. labor relations worker did discussed with his today. She is unable to go home as he is very unstable and ataxic will not be a safe discharge. is unable to take care of him. Expectations will however have to be set as it is unclear to me that the knows the extent of this patient's disease or the poor prognosis (2) Brain mass Is this a current diagnosis for this admission?: Yes Plan: This is apparently unchanged from previous and likely responsible for patient symptoms. We will continue with the dexamethasone (3) Partial seizure Is this a current diagnosis for this admission?: Yes Plan: Secondary to brain metastasis with vasogenic edema. Continue dexamethasone 8 mg every 6, Keppra 1500 mg every 12 and Dilantin loading dose as needed breakthrough seizure. Patient is not a candidate for neurosurgery. Overall prognosis is pretty poor (4) Lung cancer metastatic to brain Is this a current diagnosis for this admission?: Yes Plan: Continue Keytruda, prognosis is poor - Plan Summary Summary: Overall prognosis is poor. We will continue to pursue end-of-life discussions although patient is resistant and wants to go home
[2019-03-23] MEDS ORDERED: MAG HYDROX/AL HYDROX/SIMETH SUSP 30 ML UDCUP ONE (17:48)
--- NOTE | 2019-03-23 18:44 | ADVANCED CARE ---
- Diagnosis (1) Lung cancer metastatic to brain Diagnosis Current: Yes (2) Primary cancer of right lower lobe of lung Diagnosis Current: Yes (3) Brain mass Diagnosis Current: Yes (4) Partial seizure Diagnosis Current: Yes Attendance: Spouse Resuscitation Status: Do Not Resuscitate Discussion: Discussed with regarding patient's prognosis as well as diagnosis, her expectations and discussed comfort/hospice care with her. She is interested in comfort care. Social Service has been consulted Care Planning Goals: Patient would like to go home. Will see what services will be available to him at home Time Spent: 30 minutes including discussion with spouse, nursing staff, asbestos worker helper
[2019-03-24] MEDS: DEXAMETHASONE 4 MG TABLET PO SCH ×4 (05:34→23:25)
[2019-03-24] MEDS: INSULIN LISPRO 100 UNIT/ML 3 ML VIAL SUBCUT SCH ×5 (05:39→21:51)
[2019-03-24] MEDS: HEPARIN SOD (PORCINE) 5,000 UNIT/ML 1 ML VIAL SUBCUT SCH ×3 (05:39→21:51)
[2019-03-24] MEDS: IPRATROPIUM/ALBUTEROL 0.5-2.5 MG/3 ML AMPUL NEB SCH ×2 (08:53→20:31)
[2019-03-24] MEDS: METFORMIN HCL 500 MG TABLET PO SCH ×2 (10:03→17:05)
[2019-03-24] MEDS: LEVETIRACETAM 500 MG TABLET PO SCH ×2 (10:03→21:51)
[2019-03-24] MEDS: THIAMINE HCL 100 MG TABLET PO SCH (10:04)
[2019-03-24] MEDS: MAG HYDROX/AL HYDROX/SIMETH SUSP 30 ML UDCUP PO PRN ×2 (11:26→18:32)
--- NOTE | 2019-03-24 15:44 | PDOC PROGRESS REPORT ---
Subjective Progress Note for:: 03/24/19 Subjective:: Patient requesting to go home. Unfortunately some of the insurance papers are still being processed social service is working on having the papers completed. Patient was upset that he could not go home today however his brothers were in the room and they did not explained to him and calm him down Reason For Visit: LUNG CA AND BRAIN MET W SEIZURES Physical Exam Vital Signs: Temp Pulse Resp BP Pulse Ox 97.7 F 69 16 127/85 H 97 03/24/19 12:10 03/24/19 12:10 03/24/19 12:10 03/24/19 12:10 03/24/19 12:10 Intake & Output 03/23/19 03/24/19 03/25/19 06:59 06:59 06:59 Intake Total 750 1140 Output Total 1350 995 Balance -600 145 Weight 67.2 kg 67.5 kg General appearance: PRESENT: no acute distress Head exam: PRESENT: atraumatic GI/Abdominal exam: PRESENT: soft. ABSENT: tenderness Rectal exam: PRESENT: deferred Neurological exam: PRESENT: other - Shaking and tremors but patient awake alert oriented x3 at the time of my exam Psychiatric exam: PRESENT: anxious Results Laboratory Results: 03/22/19 05:47 03/22/19 05:47 Impressions: Head CT 03/20/19 22:37 IMPRESSION: 1. No acute intracranial hemorrhage. 2. Stable appearance of the supratentorial vasogenic edema bilaterally secondary to known metastatic disease with mild local mass effect and no significant midline shift. Overall characterization of masses is suboptimal due to lack of IV contrast. If further characterization is required contrast-enhanced MRI would be recommended. This exam was performed according to our departmental dose-optimization program, which includes automated exposure control, adjustment of the mA and/or kV according to patient size and/or use of iterative reconstruction technique. Assessment and Plan - Diagnosis (1) Lung cancer metastatic to brain Is this a current diagnosis for this admission?: Yes Plan: Continue Keytruda, prognosis is poor (2) Primary cancer of right lower lobe of lung Is this a current diagnosis for this admission?: Yes Plan: Patient's prognosis is pretty poor unfortunately. We are waiting concrete plans to be finalized and hopefully patient can be discharged home tomorrow (3) Brain mass Is this a current diagnosis for this admission?: Yes (4) Partial seizure Is this a current diagnosis for this admission?: Yes Plan: Appears to be better controlled today - Plan Summary Summary: Overall prognosis is poor. We will continue to pursue end-of-life discussions although patient is resistant and wants to go home - Time Time Spent with patient: 15-24 minutes
[2019-03-25] MEDS: HEPARIN SOD (PORCINE) 5,000 UNIT/ML 1 ML VIAL SUBCUT SCH (06:12)
[2019-03-25] MEDS: DEXAMETHASONE 4 MG TABLET PO SCH (06:12)
--- NOTE | 2019-03-25 07:53 | PDOC PROGRESS REPORT ---
Subjective Progress Note for:: 03/25/19 Subjective:: Patient pleasant, but remains quite frustrated. States that he is ready to go home. He denies any complaints. He is oriented to person, time, place, and situation. However, medical staff states that he is not safe to ambulate on his own and family has requested help at home for safety reasons. We are still awaiting [facility] help with this. Patient states that he is looking forward to his next treatment this Monday. He would like to continue aggressive treatment for his cancer. Reason For Visit: LUNG CA AND BRAIN MET W SEIZURES Physical Exam Vital Signs: Temp Pulse Resp BP Pulse Ox 97.9 F 70 20 122/87 H 97 03/25/19 04:24 03/25/19 04:24 03/25/19 04:24 03/25/19 04:24 03/25/19 04:24 Intake & Output 03/24/19 03/25/19 03/26/19 06:59 06:59 06:59 Intake Total 1140 818 Output Total 995 600 Balance 145 218 Weight 67.5 kg 65.7 kg General appearance: PRESENT: no acute distress, thin Head exam: PRESENT: normocephalic Respiratory exam: PRESENT: clear to auscultation roman, unlabored Cardiovascular exam: PRESENT: RRR GI/Abdominal exam: PRESENT: soft. ABSENT: tenderness Extremities exam: ABSENT: pedal edema Neurological exam: PRESENT: alert, awake, oriented to person, oriented to place, oriented to time, oriented to situation, other - He was NOT visualized ambulating. Psychiatric exam: PRESENT: appropriate affect Skin exam: PRESENT: normal color Results Laboratory Results: 03/22/19 05:47 03/22/19 05:47 Impressions: Head CT 03/20/19 22:37 IMPRESSION: 1. No acute intracranial hemorrhage. 2. Stable appearance of the supratentorial vasogenic edema bilaterally secondary to known metastatic disease with mild local mass effect and no significant midline shift. Overall characterization of masses is suboptimal due to lack of IV contrast. If further characterization is required contrast-enhanced MRI would be recommended. This exam was performed according to our departmental dose-optimization program, which includes automated exposure control, adjustment of the mA and/or kV according to patient size and/or use of iterative reconstruction technique. Assessment & Plan - Diagnosis (1) Partial seizure Is this a current diagnosis for this admission?: Yes Plan: Medications have been adjusted. (2) Primary cancer of right lower lobe of lung Is this a current diagnosis for this admission?: Yes Plan: Currently on Keytruda. Next dose due this Monday. Patient would like to continue treatment as outpatient. (3) Lung cancer metastatic to brain Is this a current diagnosis for this admission?: Yes Plan: Previously treated with radiation. I will decrease dexamethasone dose, as this may also be causing increased agitation. Will plan to wean this over the next week and STOP within the next 7 days, if possible. - Time Time Spent with patient: 15-24 minutes - Plan Summary Plan Summary: Patient was discussed with primary team. Awaiting [facility] paperwork.
[2019-03-25] MEDS: INSULIN LISPRO 100 UNIT/ML 3 ML VIAL SUBCUT SCH (08:13)
[2019-03-25] MEDS: LEVETIRACETAM 500 MG TABLET PO SCH (09:32)
[2019-03-25] MEDS: METFORMIN HCL 500 MG TABLET PO SCH (09:33)
[2019-03-25] MEDS: THIAMINE HCL 100 MG TABLET PO SCH (09:33)
[2019-03-25] MEDS: IPRATROPIUM/ALBUTEROL 0.5-2.5 MG/3 ML AMPUL NEB SCH (09:56)
[2019-03-25] MEDS ORDERED: DEXAMETHASONE 4 MG TABLET PO SCH (10:00)
[2019-03-25] MEDS ORDERED: ACETAMINOPHEN 650 MG SUPP.RECT PR PRN (10:22)
--- NOTE | 2019-03-25 12:25 | PDOC DISCHARGE SUMMARY ---
Impression - Admit/DC Date/PCP Admission Date/Primary Care Provider: 03/21/19 06:21 DEUCE COATES MD Discharge Date: 03/25/19 - Discharge Diagnosis (1) Lung cancer metastatic to brain Is this a current diagnosis for this admission?: Yes (2) Primary cancer of right lower lobe of lung Is this a current diagnosis for this admission?: Yes (3) Brain mass Is this a current diagnosis for this admission?: Yes (4) Partial seizure Is this a current diagnosis for this admission?: Yes - Additional Information Resuscitation Status: Do Not Resuscitate Discharge Diet: Regular Discharge Activity: Activity As Tolerated Referrals: JAVIER VARGAS MD [ACTIVE STAFF] - 04/03/19 12:45 pm Prescriptions: Dexamethasone [Decadron 4 mg Tablet] 4 mg PO Q12 #14 tablet Home Medications: Allopurinol [Zyloprim 300 mg Tablet] 300 mg PO DAILY 03/21/19 Atorvastatin Calcium [Lipitor 20 mg Tablet] 20 mg PO QHS 03/21/19 Ergocalciferol (Vitamin D2) [Drisdol 50,000 unit (1.25MG) Capsule] 50,000 unit PO [id number]@1000 03/21/19 Fenofibrate Nanocrystallized [Tricor 145 mg Tablet] 145 mg PO DAILY 03/21/19 Levetiracetam [Keppra] 1,500 mg PO Q12 03/21/19 Megestrol Acetate [Megace 20 mg Tablet] 20 mg PO DAILY 03/21/19 Metformin HCl [Glucophage 500 mg Tablet] 1,000 mg PO BID 03/21/19 [place]-3/Dha/Epa/Fish Oil [Fish Oil 1,000 mg Softgel] 1 cap PO DAILY 03/21/19 Pantoprazole Sodium [Protonix [address] Tablet] 40 mg PO DAILY 03/21/19 Potassium Chloride [Klor-Con M20] 20 meq PO DAILY 03/21/19 Sertraline HCl [Zoloft 50 mg Tablet] 50 mg PO DAILY 03/21/19 Umeclidinium Brm/Vilanterol Tr [Anoro Ellipta 62.5-25 Mcg INH] 1 puff IH DAILY 03/21/19 Dexamethasone [Decadron 4 mg Tablet] 4 mg PO Q12 #14 tablet 03/25/19 Thiamine HCl [Thiamine 100 mg Tablet] 100 mg PO DAILY tablet 03/25/19 History of Present Illiness History of Present Illness: SAQIB HILLS is a 64 year old male Who was admitted to the hospital after having witnessed seizures. He presented with change in mental status. CT scan was done in the emergency room which showed a brain mass that apparently was largely unchanged from previous. Please see admitting history and physical for full details Hospital Course Hospital Course: Patient was admitted initially to [facility] unit due to his continuous partial seizures. He was treated with increased Keppra as well as dexamethasone. His mental status has improved and he appears to be at his baseline with the patient alert and oriented x3. He did have vasogenic edema secondary to known metastatic disease with mild local mass-effect but this was basically unchanged from previous findings. And has a known stage IV small cell lung cancer. He was seen by oncologist. At this time the plan is for him to continue with his Keytruda and he has a scheduled appointment this Monday. Although patient continues to have some persistent jerks and twitchings thought to be partial seizures his mental status appears to be improved. Patient however is unstable on ambulation. After discussion with the , initially a consideration for hospice care was entertained. This was to introduce the concept and to discuss with them however patient has been adamant that he wants to go home and at this time the plan is to discharge him home with home care. Patient's prognosis remains very poor Physical Exam Vital Signs: Temp Pulse Resp BP Pulse Ox 98.3 F 69 16 114/68 98 03/25/19 07:23 03/25/19 07:23 03/25/19 07:23 03/25/19 07:23 03/25/19 07:23 Intake & Output 03/24/19 03/25/19 03/26/19 06:59 06:59 06:59 Intake Total 1140 818 Output Total 995 600 Balance 145 218 Weight 67.5 kg 65.7 kg General appearance: PRESENT: no acute distress Head exam: PRESENT: atraumatic Eye exam: PRESENT: PERRLA Neck exam: ABSENT: full ROM, JVD Respiratory exam: PRESENT: clear to auscultation roman, unlabored Cardiovascular exam: PRESENT: RRR, +S1, +S2 GI/Abdominal exam: PRESENT: soft. ABSENT: tenderness Rectal exam: PRESENT: deferred Extremities exam: ABSENT: +1 edema Neurological exam: PRESENT: alert, awake, oriented to person, oriented to place, oriented to time, oriented to situation, abnormal gait, other - intermittent twitches and jerks Right sided weakness Results Laboratory Results: WBC 5.0 10^3/uL (4.0-10.5) 03/22/19 05:47 RBC 4.40 10^6/uL (4.35-5.55) 03/22/19 05:47 Hgb 14.1 g/dL (13.5-17.0) 03/22/19 05:47 Hct 39.4 % (37.9-51.0) 03/22/19 05:47 MCV 90 fl (80-97) 03/22/19 05:47 MCH 32.0 pg (27.0-33.4) 03/22/19 05:47 MCHC 35.7 g/dL (32.0-36.0) 03/22/19 05:47 RDW 14.5 % (11.5-14.0) H 03/22/19 05:47 Plt Count 283 10^3/uL (150-450) 03/22/19 05:47 Lymph % (Auto) 9.6 % (13-45) L 03/22/19 05:47 Pender % (Auto) 3.5 % (3-13) 03/22/19 05:47 Eos % (Auto) 0.0 % (0-6) 03/22/19 05:47 Baso % (Auto) 0.5 % (0-2) 03/22/19 05:47 Absolute Neuts (auto) 4.4 10^3/uL (1.7-8.2) 03/22/19 05:47 Absolute Lymphs (auto) 0.5 10^3/uL (0.5-4.7) 03/22/19 05:47 Absolute Monos (auto) 0.2 10^3/uL (0.1-1.4) 03/22/19 05:47 Absolute Eos (auto) 0.0 10^3/uL (0.0-0.6) 03/22/19 05:47 Absolute Basos (auto) 0.0 10^3/uL (0.0-0.2) 03/22/19 05:47 Seg Neutrophils % 86.4 % (42-78) H 03/22/19 05:47 Sodium 136.8 mmol/L (137-145) L 03/22/19 05:47 Potassium 3.8 mmol/L (3.6-5.0) 03/22/19 05:47 Chloride 106 mmol/L (98-107) 03/22/19 05:47 Carbon Dioxide 21 mmol/L (22-30) L 03/22/19 05:47 Anion Gap 10 (5-19) 03/22/19 05:47 BUN 12 mg/dL (7-20) 03/22/19 05:47 Creatinine 0.43 mg/dL (0.52-1.25) L 03/22/19 05:47 Est GFR ( Amer) > 60 (>60) 03/22/19 05:47 Est GFR (MDRD) Non-Af > 60 (>60) 03/22/19 05:47 Glucose 153 mg/dL (75-110) H 03/22/19 05:47 POC Glucose 256 mg/dL (70-110) H 03/25/19 11:38 Calcium 9.2 mg/dL (8.4-10.2) 03/22/19 05:47 Magnesium 1.7 mg/dL (1.6-2.3) 03/20/19 23:20 Total Bilirubin 0.6 mg/dL (0.2-1.3) 03/20/19 23:20 Direct Bilirubin 0.0 mg/dL (0.0-0.4) 03/20/19 23:20 Neonat Total Bilirubin Not Reportable 03/20/19 23:20 Neonat Direct Bilirubin Not Reportable 03/20/19 23:20 Neonat Indirect Bili Not Reportable 03/20/19 23:20 AST 24 U/L (17-59) 03/20/19 23:20 ALT 26 U/L (<50) 03/20/19 23:20 Alkaline Phosphatase 47 U/L (38-126) 03/20/19 23:20 Total Protein 5.9 g/dL (6.3-8.2) L 03/20/19 23:20 Albumin 3.4 g/dL (3.5-5.0) L 03/20/19 23:20 Lipase 152.6 U/L (23-300) 03/20/19 23:20 Serum Alcohol < 10 mg/dL (NONE DETECTED) 03/20/19 23:20 Impressions: Head CT 03/20/19 22:37 IMPRESSION: 1. No acute intracranial hemorrhage. 2. Stable appearance of the supratentorial vasogenic edema bilaterally secondary to known metastatic disease with mild local mass effect and no significant midline shift. Overall characterization of masses is suboptimal due to lack of IV contrast. If further characterization is required contrast-enhanced MRI would be recommended. This exam was performed according to our departmental dose-optimization program, which includes automated exposure control, adjustment of the mA and/or kV according to patient size and/or use of iterative reconstruction technique. Plan Health Concerns: Patient's overall prognosis is poor Time Spent: Greater than 30 Minutes Stroke Is this a Stroke Patient?: No Acute Heart Failure - Is this a Heart Failure Patient?: No
[2019-03-25 12:44] VITALS: BP 120/67
== END 2019-03-25 12:41 | disposition home health service (06) | DRG 55 ==
LOC: ER 21:53 → EH 03-21 06:21 → 3S 03-21 20:52
PROVIDERS: ADMIT Internal Medicine; ATTEND Internal Medicine
DX: C79.31 Secondary malignant neoplasm of brain (principal); G40.109 Localization-related (focal) (partial) symptomatic epilepsy and epileptic syndromes with simple partial seizures, not intractable, without status epilepticus; C34.31 Malignant neoplasm of lower lobe, right bronchus or lung; E11.8 Type 2 diabetes mellitus with unspecified complications; I25.10 Atherosclerotic heart disease of native coronary artery without angina pectoris; I10 Essential (primary) hypertension; F17.210 Nicotine dependence, cigarettes, uncomplicated
CPT/HCPCS: 36415; 70450; 80048; 80053; 80307; 82962; 83690; 83735; 85025; 96361; 96374; 96375; 99285; J1100; J1644; J1815; J2060; J3360; J7030; J7620; J8540

== ENCOUNTER → 2019-04-03 | Outpatient (CLI) | payer OTHER ==
--- NOTE | 2019-04-03 16:12 | RADIOLOGY REPORT (SQ) ---
EXAM DESCRIPTION: CHEST 2 VIEWS COMPLETED DATE/TIME: 04/03/2019 4:03 pm REASON FOR STUDY: R06.02 SHORTNESS OF BREATH COMPARISON: 12/01/2018 EXAM PARAMETERS: NUMBER OF VIEWS: two views TECHNIQUE: Digital Frontal and Lateral radiographic views of the chest acquired. RADIATION DOSE: NA LIMITATIONS: none FINDINGS: LUNGS AND PLEURA: Enlarging mass in the right lower lobe now measure over 5 cm. Small rig ht upper lobe pulmonary nodule as well increased in size from prior study. No pneumothorax. MEDIASTINUM AND HILAR STRUCTURES: No masses or contour abnormalities. HEART AND VASCULAR STRUCTURES: Heart normal size. No evidence for failure. BONES: No acute findings. HARDWARE: None in the chest. OTHER: No other significant finding. IMPRESSION: Enlarging right lower lobe mass. New right upper lobe pulmonary nodule when compared to prior chest film. No consolidation. TECHNICAL DOCUMENTATION: JOB ID: [id number] 2010 [employer]- All Rights Reserved Reading location - IP/workstation name: [email or web address]
== END ==
LOC: RAD 15:47
PROVIDERS: ATTEND Nurse Practitioner Family
DX: R06.02 Shortness of breath (principal)
CPT/HCPCS: 71046

== ENCOUNTER 2019-04-15 13:45 | Emergency (ER) | payer OTHER ==
--- NOTE | 2019-04-15 14:20 | ER Document Report ---
ED Medical Screen (RME) - General Chief Complaint: High Blood Sugar Stated Complaint: ABNORMAL LABS/BLOOD SUGAR HIGH Time Seen by Provider: 04/15/19 14:07 Primary Care Provider: DEUCE COATES MD [Primary Care Provider] - Follow up as needed Notes: Patient is a 64-year-old male with a history of seizures, lung cancer with mets to the brain, type 2 diabetes who presents emergency department with a chief complaint of elevated blood sugar. Patient reports he was over at his oncologist office receiving IV fluids when he was told he had an elevated blood sugar in the 700s. Patient reports that he normally takes metformin daily for his blood sugar. He states over the past few days he has had a sweet tooth and has been eating cake and ice cream. Patient reports increased urinary frequency. Denies nausea, vomiting or diarrhea. Patient reports when he has seizures they are absent seizures, but has noticed generalized body shaking over the past few days. Patient denies chest pain or shortness of breath that is different from his normal. TRAVEL OUTSIDE OF THE [place] IN LAST 30 DAYS: No - Related Data Allergies/Adverse Reactions: Penicillins Allergy (Verified 01/03/18 12:36) Past Medical History - Past Medical History Cardiac Medical History: Reports: Hx Coronary Artery Disease, Hx Hypercholesterolemia, Hx Hypertension Denies: Hx Heart Attack Pulmonary Medical History: Denies: Hx Asthma, Hx Bronchitis, Hx COPD, Hx Pneumonia Neurological Medical History: Reports: Hx Seizures. Denies: Hx Cerebrovascular Accident Endocrine Medical History: Reports: Hx Diabetes Mellitus Type 2 Renal/ Medical History: Denies: Hx Peritoneal Dialysis Malignancy Medical History: Reports Hx Lung Cancer Musculoskeltal Medical History: Denies Hx Arthritis Past Surgical History: Reports: Other - bronchoscopy with biopsy, brain tumor resection, colonoscopy - Immunizations Hx Diphtheria, Pertussis, Tetanus Vaccination: Yes Physical Exam - Vital signs Vitals: Temp Pulse Resp BP Pulse Ox 96.5 F L 122 H 24 H 144/92 H 97 04/15/19 14:01 04/15/19 14:01 04/15/19 14:01 04/15/19 14:01 04/15/19 14:01 - Cardiovascular Rhythm: Tachycardia Course - Re-evaluation Re-evalutation: 04/15/19 14:19 Patient noted to be tachycardic in triage. Temperature 96.7. I have greeted and performed a rapid initial assessment of this patient. A comprehensive ED assessment and evaluation of the patient, analysis of test results and completion of the medical decision making process will be conducted by additional ED providers. - Vital Signs Vital signs: Temp Pulse Resp BP Pulse Ox 96.5 F L 122 H 24 H 144/92 H 97 04/15/19 14:01 04/15/19 14:01 04/15/19 14:01 04/15/19 14:01 04/15/19 14:01 Doctor's Discharge - Discharge Referrals: DEUCE COATES MD [Primary Care Provider] - Follow up as needed
[2019-04-15] MEDS ORDERED: NORMAL SALINE 1000 ML 1,000 ML IV ONE (14:45)
--- NOTE | 2019-04-15 15:42 | ER Document Report ---
ED General - General Chief Complaint: High Blood Sugar Stated Complaint: ABNORMAL LABS/BLOOD SUGAR HIGH Time Seen by Provider: 04/15/19 14:07 Primary Care Provider: DEUCE COATES MD [Primary Care Provider] - Follow up tomorrow Notes: 64-year-old male with history of seizures, lung cancer with mets to the brain, type 2 diabetes on metformin presents with elevated blood sugar. Patient was at the oncologist receiving IV fluids and was told that his sugar was in the 700s. Patient states he is compliant with his metformin however for the past 3 days he has been eating cake and ice cream. Patient also states he has been having some urinary frequency which happened after he has chemo. Last chemo treatment was on Monday. Patient denies any nausea/vomiting/diarrhea, abdominal pain, fever, changes with chest pain, changes with shortness of breath. Patient's oncologist is Dr. Tam. TRAVEL OUTSIDE OF THE [place] IN LAST 30 DAYS: No - Related Data Allergies/Adverse Reactions: Penicillins Allergy (Verified 01/03/18 12:36) Past Medical History - Social History Smoking Status: Current Some Day Smoker Family History: None Patient has suicidal ideation: No Patient has homicidal ideation: No - Past Medical History Cardiac Medical History: Reports: Hx Coronary Artery Disease, Hx Hypercholesterolemia, Hx Hypertension Denies: Hx Heart Attack Pulmonary Medical History: Denies: Hx Asthma, Hx Bronchitis, Hx COPD, Hx Pneumonia Neurological Medical History: Reports: Hx Seizures. Denies: Hx Cerebrovascular Accident Endocrine Medical History: Reports: Hx Diabetes Mellitus Type 2 Renal/ Medical History: Denies: Hx Peritoneal Dialysis Malignancy Medical History: Reports Hx Lung Cancer Musculoskeletal Medical History: Denies Hx Arthritis Past Surgical History: Reports: Other - bronchoscopy with biopsy, brain tumor resection, colonoscopy - Immunizations Hx Diphtheria, Pertussis, Tetanus Vaccination: Yes Review of Systems - Review of Systems Notes: Constitutional: Negative for fever. HENT: Negative for sore throat. Eyes: Negative for visual changes. Cardiovascular: Negative for chest pain. Respiratory: Negative for shortness of breath. Gastrointestinal: Negative for abdominal pain, vomiting or diarrhea. Genitourinary: Positive for urinary frequency. Negative for dysuria. Musculoskeletal: Negative for back pain. Skin: Negative for rash. Neurological: Negative for headaches, weakness or numbness. 10 point ROS negative except as marked above and in HPI. Physical Exam - Vital signs Vitals: Temp Pulse Resp BP Pulse Ox 96.5 F L 122 H 24 H 144/92 H 97 04/15/19 14:01 04/15/19 14:01 04/15/19 14:01 04/15/19 14:01 04/15/19 14:01 - Notes Notes: GENERAL: Well-appearing, well-nourished and in no acute distress. HEAD: Atraumatic, normocephalic. EYES: Extraocular movements intact, sclera anicteric, conjunctiva are normal. NECK: Normal range of motion, supple without lymphadenopathy or JVD. LUNGS: Breath sounds clear to auscultation bilaterally and equal. No wheezes rales or rhonchi. HEART: Regular rate and rhythm without murmurs, rubs or gallops. ABDOMEN: Soft, nontender. No guarding, no rebound. No masses appreciated. EXTREMITIES: Normal range of motion, no pitting or edema. No clubbing or cyanosis. NEUROLOGICAL: Cranial nerves II through XII grossly intact. Normal speech. PSYCH: Normal mood, normal affect. SKIN: Warm, Dry, normal turgor, no rashes or lesions noted. Course - Re-evaluation Re-evalutation: 04/15/19 Nontoxic, well appearing 64 y/o male presents for elevated blood sugars. Pt has hx diabetes on metformin, not on insulin. Pt was told his blood sugars were in the 700s. Pt is currently on chemo, last treatment was Monday. Rectal temp is 99F. Abd soft, nontender. RRR. Lungs CTA b/l. PE is otherwise unremarkable. 04/15/19 Venous blood gas clotted, cancelled. 04/15/19 15:55 Informed by RN that pt does not want any further treatment and wa nts to go home. Spoke to pt about risks vs benefits about leaving AMA. Pt voices understanding and states he would like to leave AMA. 16:04 RN called family and they state pt cannot come home with elevated blood sugars. Also spoke to family and informed them of same that we cannot force pt to get treatment. Family requested to speak to pt. 04/15/19 16:16 Blood sugar is 805. Insulin ordered. 1 L NS was originally given upon arrival and is still infusing. Anion gap 14. Corrected Na is 140. 04/15/19 16:34 open hearth worker, cSot, spoke to pt. Pt is willing to stay 2 hours to let us get his blood sugar down. Also will follow up with pt later on due to some family issues. 04/15/19 18:01 Family is at bedside, spoke to plan of care. 04/15/19 18:26 Blood sugar is 466. Another insulin 10 units IVP ordered. Pt is still receiving IV fluids. 04/15/19 19:36 Blood sugar 427. Pt wants to go home. Pt given strict return precautions. Pt given follow up with PCP. - Vital Signs Vital signs: Temp Pulse Resp BP Pulse Ox 96.5 F L 122 H 24 H 144/92 H 97 04/15/19 14:01 04/15/19 14:01 04/15/19 14:01 04/15/19 14:01 04/15/19 14:01 - Laboratory Result Diagrams: 04/15/19 17:00 04/15/19 14:57 Laboratory results interpreted by me: 04/15/19 04/15/19 04/15/19 14:57 14:57 17:00 RDW 15.2 H Seg Neuts % (Manual) 91 H Lymphocytes % (Manual) 5 L Monocytes % (Manual) 2 L Abs Neuts (Manual) 8.8 H Sodium 128.7 L Chloride 94 L Carbon Dioxide 21 L BUN 21 H Creatinine 0.49 L Glucose 805 H* POC Glucose ALT 60 H Total Protein 5.8 L Albumin 3.3 L Urine Glucose (UA) >=500 H 04/15/19 18:20 RDW Seg Neuts % (Manual) Lymphocytes % (Manual) Monocytes % (Manual) Abs Neuts (Manual) Sodium Chloride Carbon Dioxide BUN Creatinine Glucose POC Glucose 466 H* ALT Total Protein Albumin Urine Glucose (UA) Discharge - Discharge Clinical Impression: Hyperglycemia Disposition: HOME, SELF-CARE Additional Instructions: Your blood sugar improved with fluids and insulin. Please drink plenty of fluids and continue to take your medications. Please follow up with your primary care doctor tomorrow. Return immediately to ER for any worsening symptoms including chest pain, shortness of breath, nausea/vomiting, abdominal pain, fever, dizziness, confusion, weakness, passing out, feeling like you're going to pass out or any other symptoms that are concerning to you. Referrals: DEUCE COATES MD [Primary Care Provider] - Follow up tomorrow
[2019-04-15 15:45] LABS: ALBUMIN 3.3 g/dL (3.5-5.0); ALKALINE PHOSPHATASE 85 U/L (38-126); ANION GAP 14 (5-19); ASPARTATE AMINO TRANSFERASE 26 U/L (17-59); BILIRUBIN,TOTAL 0.3 mg/dL (0.2-1.3); BLOOD UREA NITROGEN 21 mg/dL (7-20); CALCIUM 9.2 mg/dL (8.4-10.2); CARBON DIOXIDE 21 mmol/L (22-30); CHLORIDE 94 mmol/L (98-107); POTASSIUM 4.9 mmol/L (3.6-5.0); TOTAL PROTEIN 5.8 g/dL (6.3-8.2)
[2019-04-15 15:46] LABS: APPEARANCE,URINE CLEAR; BILIRUBIN,URINE NEGATIVE (NEGATIVE); COLOR,URINE STRAW; GLUCOSE, URINE >=500 mg/dL (NEGATIVE); KETONES,URINE NEGATIVE (NEGATIVE); LEUKOCYTE ESTERASE,URINE NEGATIVE (NEGATIVE); NITRITE,URINE NEGATIVE (NEGATIVE); PROTEIN,URINE NEGATIVE (NEGATIVE); URINE SPECIFIC GRAVITY 1.027; UROBILINOGEN,URINE NEGATIVE mg/dL (<2.0)
[2019-04-15 15:55] LABS: GLUCOSE 805 mg/dL (75-110)
[2019-04-15] MEDS ORDERED: INSULIN REG, HUMAN 100 UNIT/ML 3 ML VIAL (PYX) IV ONE ×2 (16:16→18:25)
[2019-04-15] MEDS: NORMAL SALINE 1000 ML 1,000 ML IV PRN ×2 (17:17→18:17)
[2019-04-15 17:20] LABS: VENOUS BLOOD BASE EXCESS -2.7 mmol/L; VENOUS BLOOD HCO3 22.3 mmol/L (20-32); VENOUS BLOOD PCO2 39.9 mmHg (35-63); VENOUS BLOOD PH 7.37 (7.30-7.42)
[2019-04-15 17:22] LABS: HEMATOCRIT 42.2 % (37.9-51.0); HEMOGLOBIN 14.1 g/dL (13.5-17.0); MEAN CORPUSCULAR HEMOGLOBIN 30.8 pg (27.0-33.4); MEAN CORPUSCULAR HGB CONC 33.5 g/dL (32.0-36.0); MEAN CORPUSCULAR VOLUME 92 fl (80-97); PLATELET COUNT 315 10^3/uL (150-450); RED BLOOD COUNT 4.58 10^6/uL (4.35-5.55); RED CELL DISTRIBUTION WIDTH 15.2 % (11.5-14.0); WHITE BLOOD COUNT 9.7 10^3/uL (4.0-10.5)
[2019-04-15 17:43] LABS: ABSOLUTE LYMPHOCYTES# (MANUAL) 0.7 10^3/uL (0.5-4.7); ABSOLUTE MONOCYTES # (MANUAL) 0.2 10^3/uL (0.1-1.4); ANISOCYTOSIS SLIGHT; BASOPHILS % (MANUAL) 0 % (0-2); EOSINOPHILS % (MANUAL) 0 % (0-6); LYMPHOCYTES % (MANUAL) 5 % (13-45); MONOCYTES % (MANUAL) 2 % (3-13); NUCLEATED RED BLOOD CELLS 1 /100 WBC (0); SEGMENTED NEUTROPHILS % (MAN) 91 % (42-78); TOTAL CELLS COUNTED 100
[2019-04-15 17:45] LABS: OVALOCYTES SLIGHT; PLATELET COMMENT ADEQUATE; POIKILOCYTOSIS SLIGHT
--- NOTE | 2019-04-15 17:45 | EKG REPORT ---
SEVERITY:- BORDERLINE ECG - SINUS RHYTHM BORDERLINE ST ELEVATION, INFERIOR LEADS : Confirmed by: Tiago Melchor MD 15-Apr-2019 17:45:00
[2019-04-15 19:49] VITALS: BP 127/84
== END 2019-04-15 20:17 | disposition home or self-care (01) ==
LOC: ER 13:45
DX: E11.65 Type 2 diabetes mellitus with hyperglycemia (principal); C34.90 Malignant neoplasm of unspecified part of unspecified bronchus or lung; C79.31 Secondary malignant neoplasm of brain; F17.200 Nicotine dependence, unspecified, uncomplicated; I25.10 Atherosclerotic heart disease of native coronary artery without angina pectoris; E78.00 Pure hypercholesterolemia, unspecified; I10 Essential (primary) hypertension; Z88.0 Allergy status to penicillin; Z79.84 Long term (current) use of oral hypoglycemic drugs
CPT/HCPCS: 93005; 99285; 96360; 96361; 36415; 82962; 85025; 80053; 81001; 82803; 93010; J1815; J7030

== ENCOUNTER 2019-04-25 10:12 | Emergency (ER) | payer OTHER ==
[2019-04-25 10:50] LABS: HEMATOCRIT 38.5 % (37.9-51.0); HEMOGLOBIN 13.8 g/dL (13.5-17.0); MEAN CORPUSCULAR HEMOGLOBIN 31.5 pg (27.0-33.4); PLATELET COUNT 198 10^3/uL (150-450); RED BLOOD COUNT 4.39 10^6/uL (4.35-5.55); RED CELL DISTRIBUTION WIDTH 15.5 % (11.5-14.0); WHITE BLOOD COUNT 9.1 10^3/uL (4.0-10.5)
[2019-04-25 11:17] LABS: ALBUMIN 2.9 g/dL (3.5-5.0); ALCOHOL < 10 mg/dL (NONE DETECTED); ALKALINE PHOSPHATASE 43 U/L (38-126); ANION GAP 8 (5-19); ASPARTATE AMINO TRANSFERASE 20 U/L (17-59); BILIRUBIN,TOTAL 0.5 mg/dL (0.2-1.3); BLOOD UREA NITROGEN 12 mg/dL (7-20); CALCIUM 8.3 mg/dL (8.4-10.2); CARBON DIOXIDE 25 mmol/L (22-30); CHLORIDE 101 mmol/L (98-107); GLUCOSE 321 mg/dL (75-110); POTASSIUM 3.6 mmol/L (3.6-5.0)
[2019-04-25 11:32] LABS: MEAN CORPUSCULAR VOLUME 88 fl (80-97)
[2019-04-25 11:40] LABS: ABSOLUTE LYMPHOCYTES# (MANUAL) 2.2 10^3/uL (0.5-4.7); ABSOLUTE MONOCYTES # (MANUAL) 0.4 10^3/uL (0.1-1.4); BASOPHILS % (MANUAL) 0 % (0-2); EOSINOPHILS % (MANUAL) 0 % (0-6); LYMPHOCYTES % (MANUAL) 21 % (13-45); MONOCYTES % (MANUAL) 4 % (3-13); SEGMENTED NEUTROPHILS % (MAN) 72 % (42-78); TOTAL CELLS COUNTED 100
[2019-04-25 11:42] LABS: ANISOCYTOSIS SLIGHT; BURR CELLS SLIGHT; OVALOCYTES SLIGHT; PLATELET COMMENT ADEQUATE; SCHISTOCYTES SLIGHT
[2019-04-25 12:41] LABS: APPEARANCE,URINE CLOUDY; BILIRUBIN,URINE NEGATIVE (NEGATIVE); COLOR,URINE AMBER; GLUCOSE, URINE >=500 mg/dL (NEGATIVE); KETONES,URINE NEGATIVE (NEGATIVE); LEUKOCYTE ESTERASE,URINE SMALL (NEGATIVE); NITRITE,URINE NEGATIVE (NEGATIVE); PROTEIN,URINE 30 mg/dL (NEGATIVE); URINE SPECIFIC GRAVITY 1.024
[2019-04-25 12:50] LABS: ADD MANUAL MICROSCOPIC YES
[2019-04-25 12:54] LABS: BACTERIA,URINE 3+ /HPF; WBC,URINE 0-1 /HPF
[2019-04-25 12:55] LABS: AMORPHOUS SEDIMENT,UR TRACE
[2019-04-25 13:49] LABS: URINE AMPHETAMINES SCREEN NEGATIVE; URINE BARBITURATES SCREEN NEGATIVE; URINE COCAINE SCREEN NEGATIVE; URINE MARIJUANA (THC) SCREEN NEGATIVE; URINE METHADONE SCREEN NEGATIVE; URINE PHENCYCLIDINE SCREEN NEGATIVE
[2019-04-25 13:50] LABS: URINE BENZODIAZEPINES SCREEN NEGATIVE
[2019-04-25] MEDS ORDERED: LEVETIRACETAM 1000 MG/NACL-ISO 1,000 MG/100 ML RTUPB IV ONE (13:55)
--- NOTE | 2019-04-25 14:39 | RADIOLOGY REPORT (SQ) ---
EXAM DESCRIPTION: CT HEAD WITHOUT COMPLETED DATE/TIME: 04/25/2019 2:18 pm REASON FOR STUDY: seizure, mets to brain, new right side paralysis COMPARISON: 03/21/2019, MRI 02/25/2019. TECHNIQUE: Axial images acquired through the brain without intravenous contrast. Images reviewed wi th bone, brain and subdural windows. Images stored on PACS. All CT scanners at this facility use dose modulation, iterative reconstruction, and/or weight based d osing when appropriate to reduce radiation dose to as low as reasonably achievable (ALARA). [facility]: Dose Right [facility]: CareDose [facility]: Dose Right [facility]: Teradose 4D [facility]: [employer] RADIATION DOSE: CT Rad equipment meets quality standard of care and radiation dose reduction techniq ues were employed. CTDIvol: 53.2 mGy. DLP: 1124 mGy-cm. mGy. LIMITATIONS: None. FINDINGS: There is a right parietal craniotomy. Bilateral vasogenic edema associated with known mul tiple metastatic lesions not significantly changed. No evidence of hemorrhage. No hydrocephalus or mass effect. No extra-axial fluid collection. Posterior fossa unremarkable. IMPRESSION: Known brain metastasis without obvious progression or evidence of hemorrhage. EVIDENCE OF ACUTE STROKE: NO. TECHNICAL DOCUMENTATION: JOB ID: [id number] Quality ID # [id number]: Final reports with documentation of one or more dose reduction techniques (e.g., Au tomated exposure control, adjustment of the mA and/or kV according to patient size, use of iterative reconstruction technique) 2010 [employer]- All Rights Reserved Reading location - IP/workstation name: [email or web address]
[2019-04-25] MEDS: MAGNESIUM SULFATE/D5W 1 GM/100 ML RTUPB IV SCH ×2 (14:45→15:46)
--- NOTE | 2019-04-25 16:26 | ER Document Report ---
ED General - General Chief Complaint: Seizure Stated Complaint: SEIZURE Time Seen by Provider: 04/25/19 13:32 Primary Care Provider: DEUCE COATES MD [Primary Care Provider] - Follow up as needed TRAVEL OUTSIDE OF THE [place] IN LAST 30 DAYS: No - HPI Notes: Chief complaint: Seizure 64-year-old man with stage IV lung cancer and known brain metastasis with chronic recurrent seizures presents today after having a seizure at home and developing weakness of his right upper and lower extremity. says he has similar neurologic deficit each time after he has a seizure. He is fully compliant with his Keppra 1500 mg twice daily. He is also taking Decadron daily for vasogenic edema. He was offered hospice at the time of his most recent hospitalization several weeks ago and he and his both declined this. He is however receiving extensive home health care services. Patient has minimal complaints or concerns at this time although his seems anxious about his ov erall situation. He is not vomiting, running a fever or complaining of pain today. - Related Data Allergies/Adverse Reactions: Penicillins Allergy (Verified 04/25/19 10:44) Past Medical History - General Information source: Patient, Relative, [facility] Records - Social History Smoking Status: Current Some Day Smoker Frequency of alcohol use: Occasional Family History: None Patient has suicidal ideation: No Patient has homicidal ideation: No - Past Medical History Cardiac Medical History: Reports: Hx Coronary Artery Disease, Hx Hypercholesterolemia, Hx Hypertension Denies: Hx Heart Attack Pulmonary Medical History: Denies: Hx Asthma, Hx Bronchitis, Hx COPD, Hx Pneumonia Neurological Medical History: Reports: Hx Seizures. Denies: Hx Cerebrovascular Accident Endocrine Medical History: Reports: Hx Diabetes Mellitus Type 2 Renal/ Medical History: Denies: Hx Peritoneal Dialysis Malignancy Medical History: Reports Hx Lung Cancer Musculoskeletal Medical History: Denies Hx Arthritis Past Surgical History: Reports: Other - bronchoscopy with biopsy, brain tumor resection, colonoscopy - Immunizations Hx Diphtheria, Pertussis, Tetanus Vaccination: Yes Review of Systems - Review of Systems Notes: Constitutional: Negative for fever. HENT: Negative for sore throat. Eyes: Negative for visual changes. Cardiovascular: Negative for chest pain. Respiratory: Negative for shortness of breath. Gastrointestinal: Negative for abdominal pain, vomiting or diarrhea. Genitourinary: Negative for dysuria. Musculoskeletal: Negative for back pain. Skin: Negative for rash. Neurological: As per HPI. 10 point ROS negative except as marked above and in HPI. Physical Exam - Vital signs Vitals: Temp Resp Pulse Ox 98.3 F 23 H 98 04/25/19 10:22 04/25/19 10:22 04/25/19 10:22 - Notes Notes: GENERAL: Chronically ill-appearing male of approximately stated age in no acute distress. SKIN: Good turgor no rashes. HEAD: Normocephalic atraumatic. EYES: PERRLA. EOMI. Conjunctivae and sclerae clear. EARS: CANALS AND TMS CLEAR. NOSE: CLEAR. MOUTH: Moist mucosa. Good dentition. No stridor or edema. No drooling. NECK: Supple. No masses or thyromegaly. No adenopathy. Carotids 2+ without bruits. No JVD. BACK: Symmetrical without tenderness. CHEST: Respirations unlabored. Breath sounds clear and symmetrical. HEART: Regular rhythm. No murmur gallop or rub. ABDOMEN: Soft nontender without masses, organomegaly or rebound. Bowel sounds normally active. No bruits. GENITALIA: Deferred. EXTREMITIES: No edema. No calf tenderness. Cap refill less than 1.5 seconds. Dorsalis pedis and posterior tibial pulses 3+ and symmetrical. NEUROLOGICAL: GCS 14. Patient is appropriately oriented to place and person but not time. says this fluctuates and is typically abnormal after he has a seizure. Speech is mildly slurred and is at baseline per . Cranial nerves II through XII intact. Normal tone. Right hemiparesis initially and on serial exam this is gradually improving again consistent with what describes with his previous seizures. PSYCHIATRIC: Appropriate affect. Course - Re-evaluation Re-evalutation: 04/25/19 16:25 I repeated a noncontrast head CT and this is grossly abnormal but unchanged from prior baseline per radiologist. His magnesium level here today is slightly low and I have given him some additional IV magnesium. He was also given an additional dose of Keppra IV. His motor function is continuing to gradually improve on his right side. I do not think we really have anything additional to offer this man in terms of admission for inpatient care. Discharge planning team has talked with patient and his again today and it is their preference for him to go home with continued home care services although they still are not interested in signing up for hospice. I am going to add some oral magnesium sulfate to his home regimen and have him continue his other usual medications. - Vital Signs Vital signs: Temp Pulse Resp BP Pulse Ox 98.3 F 23 H 121/83 78 L 04/25/19 10:22 04/25/19 16:01 04/25/19 16:00 04/25/19 15:59 - Laboratory Result Diagrams: 04/25/19 10:25 04/25/19 10:25 Laboratory results interpreted by me: 04/25/19 04/25/19 04/25/19 10:25 10:25 12:14 RDW 15.5 H Sodium 134.4 L Creatinine 0.45 L Glucose 321 H Calcium 8.3 L Magnesium 1.3 L Total Protein 5.0 L Albumin 2.9 L Urine Protein 30 H Urine Glucose (UA) >=500 H Urine Blood SMALL H Urine Urobilinogen 4.0 H Ur Leukocyte Esterase SMALL H Discharge - Discharge Clinical Impression: Seizure, Lung CA with brain metastasis, Hypomagnesemia Condition: Stable Disposition: HOME, SELF-CARE Additional Instructions: Your magnesium level is low and we will prescribe magnesium for you to take by mouth. Stay on all of your other medications as previously prescribed. Return here as needed for new or worsening symptoms. Follow-up with your doctor within the next 3 to 5 days. Prescriptions: Magnesium Oxide [Magnesium Oxide 400] 240 mg PO BID 7 Days #14 [email or web address] Referrals: DEUCE COATES MD [Primary Care Provider] - Follow up as needed
[2019-04-25 18:54] VITALS: BP 121/73
== END 2019-04-25 19:19 | disposition home or self-care (01) ==
LOC: ER 10:12
DX: G40.909 Epilepsy, unspecified, not intractable, without status epilepticus (principal); G81.91 Hemiplegia, unspecified affecting right dominant side; C34.90 Malignant neoplasm of unspecified part of unspecified bronchus or lung; C79.31 Secondary malignant neoplasm of brain; E83.42 Hypomagnesemia; R47.81 Slurred speech; F17.200 Nicotine dependence, unspecified, uncomplicated; I25.10 Atherosclerotic heart disease of native coronary artery without angina pectoris; I10 Essential (primary) hypertension; E11.9 Type 2 diabetes mellitus without complications; R60.9 Edema, unspecified; Z79.899 Other long term (current) drug therapy; Z88.0 Allergy status to penicillin
CPT/HCPCS: 99284; 96365; 96366; 96367; 36415; 82962; 80307 ×2; 83735; 85025; 80053; 81001; 70450; J3475; J1953

== ENCOUNTER 2019-04-27 16:01 | Inpatient (IN) | payer OTHER ==
[2019-04-27 18:06] LABS: ABSOLUTE EOSINOPHILS # (AUTO) 0.1 10^3/uL (0.0-0.6); ABSOLUTE LYMPHOCYTES (AUTO) 1.7 10^3/uL (0.5-4.7); ABSOLUTE MONOCYTES (AUTO) 0.7 10^3/uL (0.1-1.4); ABSOLUTE NEUT (AUTO) 7.5 10^3/uL (1.7-8.2); BASOPHILS % (AUTO) 0.2 % (0-2); EOSINOPHILS % (AUTO) 0.6 % (0-6); HEMATOCRIT 39.6 % (37.9-51.0); HEMOGLOBIN 14.2 g/dL (13.5-17.0); LYMPHOCYTES % (AUTO) 17.1 % (13-45); MEAN CORPUSCULAR HEMOGLOBIN 31.5 pg (27.0-33.4); MEAN CORPUSCULAR HGB CONC 35.9 g/dL (32.0-36.0); MEAN CORPUSCULAR VOLUME 88 fl (80-97); PLATELET COUNT 196 10^3/uL (150-450); RED BLOOD COUNT 4.52 10^6/uL (4.35-5.55); RED CELL DISTRIBUTION WIDTH 15.5 % (11.5-14.0); SEGMENTED NEUTROPHILS % (AUTO) 75.1 % (42-78); TOTAL CELLS COUNTED % (AUTO) 100 %; WHITE BLOOD COUNT 9.9 10^3/uL (4.0-10.5)
[2019-04-27 18:14] LABS: ALKALINE PHOSPHATASE 45 U/L (38-126); ASPARTATE AMINO TRANSFERASE 20 U/L (17-59); BILIRUBIN,TOTAL 0.4 mg/dL (0.2-1.3); BLOOD UREA NITROGEN 11 mg/dL (7-20); CALCIUM 8.4 mg/dL (8.4-10.2); CARBON DIOXIDE 27 mmol/L (22-30); CHLORIDE 102 mmol/L (98-107); GLUCOSE 170 mg/dL (75-110); POTASSIUM 3.4 mmol/L (3.6-5.0); TOTAL PROTEIN 5.2 g/dL (6.3-8.2)
[2019-04-27 18:17] LABS: ALCOHOL < 10 mg/dL (NONE DETECTED); ANION GAP 2 (5-19)
--- NOTE | 2019-04-27 18:25 | ER Document Report ---
ED Medical Screen (RME) - General Chief Complaint: Seizure Stated Complaint: POSSIBLE SEIZURE Time Seen by Provider: 04/27/19 18:20 Primary Care Provider: DEUCE COATES MD [Primary Care Provider] - Follow up as needed Mode of Arrival: Medic Information source: Relative Notes: 64-year-old male with history of seizures stage IV lung cancer and brain metastasis presents to the emergency department via EMS with history of at least 5 seizures today. Brother also reported patient fell out of his wheelchair today earlier this morning and has an abrasion to his nose. Patient is currently postictal. Nurse reports that this is his typical presentation according to family. No family is at his bedside. I have greeted and performed a rapid initial assessment of this patient. A comprehensive ED assessment and evaluation of the patient, analysis of test results and completion of the medical decision making process will be conducted by additional ED providers. TRAVEL OUTSIDE OF THE [place] IN LAST 30 DAYS: No - Related Data Allergies/Adverse Reactions: Penicillins Allergy (Verified 04/25/19 10:44) Home Medications: keppra. metformin. nephedipine. jenuvia. magnesium Past Medical History - Past Medical History Cardiac Medical History: Reports: Hx Coronary Artery Disease, Hx Hypercholesterolemia, Hx Hypertension Denies: Hx Heart Attack Pulmonary Medical History: Denies: Hx Asthma, Hx Bronchitis, Hx COPD, Hx Pneumonia Neurological Medical History: Reports: Hx Seizures. Denies: Hx Cerebrovascular Accident Endocrine Medical History: Reports: Hx Diabetes Mellitus Type 2 Renal/ Medical History: Denies: Hx Peritoneal Dialysis Malignancy Medical History: Reports Hx Lung Cancer Musculoskeltal Medical History: Denies Hx Arthritis Past Surgical History: Reports: Other - bronchoscopy with biopsy, brain tumor resection, colonoscopy - Immunizations Hx Diphtheria, Pertussis, Tetanus Vaccination: Yes Physical Exam - Vital signs Vitals: Resp 18 04/27/19 16:05 Course - Vital Signs Vital signs: Temp Pulse Resp BP Pulse Ox 99.1 F 24 H 127/89 H 95 04/27/19 16:36 04/27/19 16:06 04/27/19 16:06 04/27/19 16:06 - Laboratory Result Diagrams: 04/27/19 16:07 04/27/19 16:07 Laboratory results interpreted by me: 04/27/19 16:07 Sodium 130.9 L Potassium 3.4 L Anion Gap 2 L Creatinine 0.40 L Glucose 170 H Magnesium 1.5 L Total Protein 5.2 L Albumin 3.0 L Doctor's Discharge - Discharge Referrals: DEUCE COTAES MD [Primary Care Provider] - Follow up as needed
--- NOTE | 2019-04-27 19:03 | ER Document Report ---
ED General - General Chief Complaint: Seizure Stated Complaint: POSSIBLE SEIZURE Time Seen by Provider: 04/27/19 18:20 Mode of Arrival: Medic Information source: Emergency Med Personnel Cannot obtain history due to: Altered mental status Notes: Patient is a 64-year-old male presenting to the emergency department via EMS chief complaint of seizure. EMS state the patient had several seizures at home prior to their arrival and patient had 2 seizures while with them. At time of presentation patient is resting in hospital bed remainder of history of present illness and review of systems is unobtainable secondary to patient's current status. No family has presented to the emergency department. TRAVEL OUTSIDE OF THE [place] IN LAST 30 DAYS: No - HPI Onset: Just prior to arrival Onset/Duration: Sudden Quality of pain: No pain Similar symptoms previously: Yes Recently seen / treated by doctor: Yes - Related Data Allergies/Adverse Reactions: Penicillins Allergy (Verified 04/25/19 10:44) Home Medications: keppra. metformin. nephedipine. jenuvia. magnesium Past Medical History - General Information source: Relative, H Records Cannot obtain history due to: Altered mental status - Social History Smoking Status: Unknown if Ever Smoked Frequency of alcohol use: Prior history Drug Abuse: None Family History: None Patient has suicidal ideation: No Patient has homicidal ideation: No - Past Medical History Cardiac Medical History: Reports: Hx Coronary Artery Disease, Hx Hypercholesterolemia, Hx Hypertension Denies: Hx Heart Attack Pulmonary Medical History: Denies: Hx Asthma, Hx Bronchitis, Hx COPD, Hx Pneumonia Neurological Medical History: Reports: Hx Seizures. Denies: Hx Cerebrovascular Accident Endocrine Medical History: Reports: Hx Diabetes Mellitus Type 2 Renal/ Medical History: Denies: Hx Peritoneal Dialysis Malignancy Medical History: Reports Hx Lung Cancer Musculoskeletal Medical History: Denies Hx Arthritis Past Surgical History: Reports: Other - bronchoscopy with biopsy, brain tumor resection, colonoscopy - Immunizations Hx Diphtheria, Pertussis, Tetanus Vaccination: Yes Review of Systems - Review of Systems -: Yes ROS unobtainable due to patient's medical condition Physical Exam - Vital signs Vitals: Resp 18 04/27/19 16:05 - Notes Notes: PHYSICAL EXAMINATION: GENERAL: Patient is a 64-year-old male not responding to noxious stimuli however in no acute distress HEAD: Atraumatic, normocephalic. EYES: Pupils are equal approximately 4 mm there is spontaneous eye movement but no purposeful gaze. ENT: nares patent, oropharynx clear without exudates. Tacky mucous membranes. NECK: supple without lymphadenopathy, no appreciable JVD LUNGS: Lungs clear to auscultation bilaterally and equal. No wheezes rales or rhonchi. Decreased respiratory effort however patient is maintaining adequate oxygen saturation HEART: Regular rate and rhythm without murmurs ABDOMEN: Soft, nontender, decreased bowel sounds. No guarding, no rebound. No masses appreciated. EXTREMITIES: Passive range of motion there is no resistance to any range of motion and arms and legs dropped back to the bed without any resistance NEUROLOGICAL: Patient has remained postictal and not responding to verbal or noxious stimuli. Remainder of neurologic exam is unobtainable secondary to patient condition. SKIN: Warm, Dry, and intact. Normal turgor, no rashes or lesions noted. Course - Re-evaluation Re-evalutation: 04/28/19 02:02 Patient has been maintained on a manager cardiac the entire time in the emergency department patient has had multiple re-evaluations both by myself and nursing staff. Patient is remained at baseline since his arrival. Patient intermittently has had some unexplained tremulous activity. After reviewing labs and radiologic studies CT of brain demonstrates a new area of concern to the right parietal region. There is a metastatic area which has a central area of approximately 5 mm which is concerning for a possible new bleed to that area. 1831 I called [facility] and spoke with Dr. Leo Rees, neurology extension work instructor he stated that at this point he does not believe there is any neurologic intervention that would benefit the patient he recommended contacting the patient's oncologist which was done. [address] Dorado oncology and he stated that at this point his recommendations would be to give the patient a bolus of Keppra 1000 mg Decadron 10 mg and subsequent Decadron of 4 mg IV every 6 hours. He stated that he would be available for consultation. [address] Redmond hospitalist extension work instructor who requested patient be consulted to magnet placer service 2119 consulted ICU physician assistant oceanographer Dionisio who is working for Dr. Whipple who has discussed the case with me and subsequently discussed the case and prognosis with the patient's . The patient's and I had previously spoken and I instructed her as to the severity of today's findings and the patient's condition. This was once again reiterated with ICU provider. Patient is remained stable while in the emergency department and will be transferred to the ICU in guarded condition. - Vital Signs Vital signs: Temp Pulse Resp BP Pulse Ox 97.7 F 71 25 H 165/90 H 100 04/28/19 01:02 04/28/19 01:02 04/28/19 01:02 04/28/19 01:02 04/28/19 01:02 - Laboratory Result Diagrams: 04/27/19 16:07 04/27/19 16:07 Laboratory results interpreted by me: 04/27/19 04/27/19 04/27/19 16:07 16:07 19:18 RDW 15.5 H Sodium 130.9 L Potassium 3.4 L Anion Gap 2 L Creatinine 0.40 L Glucose 170 H POC Glucose Magnesium 1.5 L Total Protein 5.2 L Albumin 3.0 L Urine Protein 30 H Urine Blood LARGE H Urine Urobilinogen 4.0 H Ur Leukocyte Esterase SMALL H 04/27/19 22:34 RDW Sodium Potassium Anion Gap Creatinine Glucose POC Glucose 189 H Magnesium Total Protein Albumin Urine Protein Urine Blood Urine Urobilinogen Ur Leukocyte Esterase - Diagnostic Test Radiology reviewed: Image reviewed, Reports reviewed - EKG Interpretation by Me Additional EKG results interpreted by me: 04/28/19 02:02 EKG demonstrates sinus rhythm rate of 71 bpm there is no ST elevation no axis deviation patient does have multifocal both ventricular and supraventricular ectopy there is no old EKG available immediately for comparison Critical Care Note - Critical Care Note Total time excluding time spent on procedures (mins): 50 Comments: Please allow 50 minutes of critical care time exclusive of separately billable procedures for multiple re-evaluations medical management and consultation with neurology oncology hospitalist ICU provider as well as family members and caring for this critically ill patient. Discharge - Discharge Clinical Impression: Metastatic cancer to brain of unknown cell type, Lung cancer metastatic to brain, Seizure disorder Condition: Poor Disposition: ADMITTED INPATIENT Admitting Provider: [facility] ([facility] Unit Admitted: ICU
--- NOTE | 2019-04-27 19:29 | RADIOLOGY REPORT (SQ) ---
EXAM DESCRIPTION: ANKLE RIGHT COMPLETE COMPLETED DATE/TIME: 04/27/2019 7:13 pm REASON FOR STUDY: fall COMPARISON: None. NUMBER OF VIEWS: Three views. TECHNIQUE: AP, lateral, and oblique radiographic images acquired of the right ankle. LIMITATIONS: None. FINDINGS: MINERALIZATION: Normal. BONES: 5 mm ossific fragment adjacent to the medial malleolus. Cortical irregularity of the mediolat eral talar processes. Small Achilles and plantar calcaneal enthesophytes. Dorsal talus osteophytosi s. JOINTS: Moderate tibiotalar joint degenerative changes. SOFT TISSUES: Mild circumferential soft tissue swelling. No foreign body. OTHER: Vascular calcifications. IMPRESSION: 5 mm ossific fragment adjacent to me malleolus, most consistent with an age-indeterminat e avulsion type fracture. Mild circumferential ankle soft tissue swelling. TECHNICAL DOCUMENTATION: JOB ID: [id number] 2010 [employer]- All Rights Reserved Reading location - IP/workstation name: [email or web address]
[2019-04-27 19:57] LABS: URINE AMPHETAMINES SCREEN NEGATIVE; URINE BARBITURATES SCREEN NEGATIVE; URINE COCAINE SCREEN NEGATIVE; URINE MARIJUANA (THC) SCREEN NEGATIVE; URINE METHADONE SCREEN NEGATIVE; URINE PHENCYCLIDINE SCREEN NEGATIVE
[2019-04-27 19:58] LABS: URINE BENZODIAZEPINES SCREEN UNCONFIRMED POSITIVE
[2019-04-27 19:59] LABS: APPEARANCE,URINE SLIGHTLY-CLOUDY; BILIRUBIN,URINE NEGATIVE (NEGATIVE); COLOR,URINE YELLOW; GLUCOSE, URINE NEGATIVE (NEGATIVE); KETONES,URINE NEGATIVE (NEGATIVE); LEUKOCYTE ESTERASE,URINE SMALL (NEGATIVE); NITRITE,URINE NEGATIVE (NEGATIVE); PROTEIN,URINE 30 mg/dL (NEGATIVE); URINE SPECIFIC GRAVITY 1.019
[2019-04-27] MEDS ORDERED: NORMAL SALINE 1000 ML 1,000 ML IV ONE (20:00)
--- NOTE | 2019-04-27 20:03 | RADIOLOGY REPORT (SQ) ---
EXAM DESCRIPTION: CT HEAD WITHOUT COMPLETED DATE/TIME: 04/27/2019 7:40 pm REASON FOR STUDY: FALL THIS AM COMPARISON: None. TECHNIQUE: Axial images acquired through the brain without intravenous contrast. Images reviewed wi th bone, brain and subdural windows. Additional sagittal and coronal reconstructions were generated. Images stored on PACS. All CT scanners at this facility use dose modulation, iterative reconstruction, and/or weight based d osing when appropriate to reduce radiation dose to as low as reasonably achievable (ALARA). [facility]: Dose Right [facility]: CareDose [facility]: Dose Right [facility]: Teradose 4D [facility]: [employer] RADIATION DOSE: CT Rad equipment meets quality standard of care and radiation dose reduction techniq ues were employed. CTDIvol: 53.2 mGy. DLP: 964 mGy-cm. mGy. LIMITATIONS: CT head 04/25/2019 FINDINGS: VENTRICLES: Normal size and contour. CEREBRUM: Known metastatic disease. New 4.5 mm hyperdense focus within a right lateral periatrial m etastatic lesion. Similar prominent bilateral frontoparietal lobe vasogenic edema. CEREBELLUM: No masses. No hemorrhage. No alteration of density. No evidence for acute infarction. EXTRAAXIAL SPACES: No fluid collections. No masses. ORBITS AND GLOBE: No intra- or extraconal masses. Normal contour of globe without masses. CALVARIUM: Postsurgical changes of right parietal craniotomy. PARANASAL SINUSES: Right maxillary sinus mucous retention cyst. SOFT TISSUES: No mass or hematoma. OTHER: No other significant finding. IMPRESSION: New 4.5 mm hyperdense focus within a known right lateral periatrial metastatic lesion ellison ggestive of mild intralesional hemorrhage. Additional metastatic lesions and prominent bilateral fro ntal parietal lobe vasogenic edema remain unchanged. EVIDENCE OF ACUTE STROKE: NO. COMMENT: Quality ID # 436: Final reports with documentation of one or more dose reduction techniques (e.g., Automated exposure control, adjustment of the mA and/or kV according to patient size, use of iterative reconstruction technique) TECHNICAL DOCUMENTATION: JOB ID: [id number] 2010 [employer]- All Rights Reserved Reading location - IP/workstation name: [email or web address]
[2019-04-27] MEDS ORDERED: LEVETIRACETAM 1000 MG/NACL-ISO 1,000 MG/100 ML RTUPB IV ONE (20:54)
[2019-04-27] MEDS ORDERED: DEXAMETHASONE SOD PHOS INJ 10 MG/1 ML VIAL IV ONE (20:55)
--- NOTE | 2019-04-27 21:02 | RADIOLOGY REPORT (SQ) ---
EXAM DESCRIPTION: CT CERVICAL SPINE WITHOUT IV CONTRAST COMPLETED DATE/TME: 04/27/2019 20:01 CLINICAL HISTORY: 64 years, Male, fall COMPARISON: None. TECHNIQUE: Images stored on PACS. All CT scanners at this facility use dose modulation, iterative reconstruction, and/or weight based dosing when appropriate to reduce radiation dose to as low as reasonably achievable (ALARA). [facility]: Dose Right [facility]: CareDose [facility]: Dose Right [facility]: Teradose 4D [facility]: [employer] LIMITATIONS: None. FINDINGS: No acute displaced fracture. Multilevel uncovertebral and facet osteoarthritis. Alignment is anatomic. Surrounding soft tissues demonstrate thyroid to be heterogeneous. Lung apices are grossly clear. Left mastoid effusion. IMPRESSION: No acute fracture of the cervical spine. Osteoarthritis TECHNICAL DOCUMENTATION: Quality ID # 436: Final reports with documentation of one or more dose reduction techniques (e.g., Automated exposure control, adjustment of the mA and/or kV according to patient size, use of iterative reconstruction technique) copyright 2011 [employer]- All Rights Reserved
[2019-04-27] MEDS ORDERED: LORAZEPAM INJ 2 MG/1 ML VIAL IV ONE (22:19)
--- NOTE | 2019-04-28 00:03 | CRITICAL CARE ADMISSION REPORT ---
<CLARISSA VIDALES - Last Filed: 04/27/19 23:24> HPI Date:: 04/28/19 Time:: 00:10 Reason for ICU Reason:: Seizures HPI: 64-year-old gentleman with a history of lung cancer and metastatic disease to the brain first diagnosed in 2018. Patient has had multiple admissions and ER visits for similar complaints, and presents again today with seizure activity and is status post fall from his wheelchair. CT scan on this visit shows a new 4.5 mm hyperdense focus within a known right lateral parietal metastatic lesion suggestive of mild intralesional hemorrhage. Other metastatic lesions appear unchanged. Patient's case was presented to an outside hospital with neurosurgery capabilities, however, he was denied as he is not a safe surgical candidate. I held an extensive conversation with his and brother regarding his overall condition in terms of this new presentation. Although he has stated in the past that he would want to remain full code, his family is discussing this evening whether or not cardiopulmonary resuscitation would be appropriate at this stage of his disease evolution. We will admit Mr. Landry to the intensive care unit for management of his acute seizures. History obtained from:: Patient's family, medical record - Diagnosis/Plan (1) Lung cancer metastatic to brain Is this a current diagnosis for this admission?: Yes Plan: Patient has a significant smoking history and continued to smoke after being diagnosed with metastatic lung cancer. He has had multiple seizures over the past 2 years since diagnosis. Continue patient's home dose of Keppra and Decadron. Ativan for breakthrough seizure activity At this time, patient remains full code and wishes to be intubated in the event of a respiratory arrest. Further discussions ongoing with family. (2) Seizure disorder Is this a current diagnosis for this admission?: Yes Plan: Likely secondary to new and possibly evolving intra-lesional bleed. Continue home regimen of Keppra. Continue Decadron Treat breakthrough seizures with Ativan IV. (3) Diabetes Qualifiers: Diabetes mellitus type: type 2 Diabetes mellitus snf insulin use: unspecified snf insulin use status Is this a current diagnosis for this admission?: Yes Plan: Start regular insulin sliding scale with Accu-Cheks every 6 hours. - . Plan Summary: Mr. Landry has been suffering with seizure activity which seems to be growing more frequent. Given his new intra-lesional bleed, his disease course may be worsening. Family is aware of the gravity of his current situation and is deliberating whether or not full CODE STATUS remains appropriate. As further surgery is not appropriate, his goals of care will be focused around comfort and seizure prevention. Past Medical History Cardiac Medical History: Reports: Coronary Artery Disease, Hyperlipidema, Hypertension Denies: Myocardial Infarction Pulmonary Medical History: Denies: Asthma, Bronchitis, Chronic Obstructive Pulmonary Disease (COPD), Pneumonia Neurological Medical History: Reports: Seizures Endocrine Medical History: Reports: Diabetes Mellitus Type 2 Malignancy Medical History: Reports: Lung Cancer Musculoskeltal Medical History: Denies: Arthritis Psychiatric Medical History: Reports: Alcohol Dependency, Tobacco Dependency Hematology: Denies: Anemia Past Surgical History Past Surgical History: Reports: Other - bronchoscopy with biopsy, brain tumor resection, colonoscopy Social/Family History - Social History Smoking Status: Current Every Day Smoker Frequency of Alcohol Use: Heavy Hx Recreational Drug Use: No Drugs: None Hx Prescription Drug Abuse: No - Medication/Allergies Home Medications: Ergocalciferol (Vitamin D2) [Drisdol 50,000 unit (1.25MG) Capsule] 50,000 unit PO [id number]@1000 03/21/19 Fenofibrate Nanocrystallized [Tricor 145 mg Tablet] 145 mg PO DAILY 03/21/19 Levetiracetam [Keppra] 1,000 mg PO DAILY 03/21/19 Megestrol Acetate [Megace 20 mg Tablet] 20 mg PO DAILY 03/21/19 Metformin HCl [Glucophage 500 mg Tablet] 1,000 mg PO BID 03/21/19 Pantoprazole Sodium [Protonix [address] Tablet] 40 mg PO DAILY 03/21/19 Dexamethasone [Decadron 4 mg Tablet] 4 mg PO Q12 #14 tablet 03/25/19 Atorvastatin Calcium [Lipitor 40 mg Tablet] 40 mg PO QHS 04/28/19 Icosapent Ethyl [Vascepa] 1 gm PO QID 04/28/19 Megestrol Acetate [Megace Elise 400 mg/10 ml Udcup] 400 mg PO DAILY 04/28/19 Nifedipine [Nifedipine ER] 60 mg PO DAILY 04/28/19 Sitagliptin Phosphate [Januvia 50 mg Tablet] 50 mg PO DAILY 04/28/19 Allergies/Adverse Reactions: Penicillins Allergy (Verified 04/25/19 10:44) Review of Systems ROS unobtainable: Due to mental status Physical Exam Vital Signs: Temp Pulse Resp BP Pulse Ox 99.1 F 27 H 99/75 L 100 04/27/19 16:36 04/27/19 19:01 04/27/19 19:01 04/27/19 19:01 Intake & Output 04/26/19 04/27/19 04/28/19 06:59 06:59 06:59 Intake Total 1100 Balance 1100 Weight 64.2 kg Weight/Height Weight 64.2 kg Height 6 ft 2 in Exam: Leftward gaze, tremors consistent with ongoing seizure activity. Head exam: PRESENT: other - Small lesion on his forehead from a fall out of his wheelchair today. CT negative for any related sequelae Eye exam: PRESENT: PERRLA, other - Leftward gaze Mouth exam: PRESENT: dry mucosa Neck exam: PRESENT: full ROM Respiratory exam: PRESENT: clear to auscultation roman, symmetrical. ABSENT: rhonchi, wheezes Cardiovascular exam: PRESENT: RRR, +S1, +S2 Pulses: PRESENT: normal carotid pulses, +2 pedal pulses bilateral Vascular exam: PRESENT: normal capillary refill GI/Abdominal exam: PRESENT: normal bowel sounds. ABSENT: ascites Musculoskeletal exam: PRESENT: other - Contractions secondary to seizure activity. Neurological exam: PRESENT: other - Awake, unresponsive to verbal stimuli. He does respond to painful stimuli. Right-sided hemiparesis Psychiatric exam: PRESENT: other - Able to assess given his neurologic status. Skin exam: PRESENT: abrasion - small abrasion on his forehead secondary to fall. Laboratory/Radiographs Laboratory Results: 04/27/19 16:07 04/27/19 16:07 04/27/19 04/27/19 04/27/19 16:07 16:07 19:18 WBC 9.9 RBC 4.52 Hgb 14.2 Hct 39.6 MCV 88 MCH 31.5 MCHC 35.9 RDW 15.5 H Plt Count 196 Seg Neutrophils % 75.1 Sodium 130.9 L Potassium 3.4 L Chloride 102 Carbon Dioxide 27 Anion Gap 2 L BUN 11 Creatinine 0.40 L Est GFR ( Amer) > 60 Glucose 170 H Calcium 8.4 Magnesium 1.5 L Total Bilirubin 0.4 AST 20 Alkaline Phosphatase 45 Total Protein 5.2 L Albumin 3.0 L Urine Color YELLOW Urine Appearance SLIGHTLY-CLOUDY Urine pH 6.0 Ur Specific [place] 1.019 Urine Protein 30 H Urine Glucose (UA) NEGATIVE Urine Ketones NEGATIVE Urine Blood LARGE H Urine Nitrite NEGATIVE Ur Leukocyte Esterase SMALL H Urine WBC (Auto) 49 Urine RBC (Auto) 24 Impressions: Head CT 04/27/19 18:25 IMPRESSION: New 4.5 mm hyperdense focus within a known right lateral periatrial metastatic lesion suggestive of mild intralesional hemorrhage. Additional metastatic lesions and prominent bilateral frontal parietal lobe vasogenic edema remain unchanged. EVIDENCE OF ACUTE STROKE: NO. Ankle X-Ray 04/27/19 18:27 IMPRESSION: 5 mm ossific fragment adjacent to me malleolus, most consistent with an age-indeterminate avulsion type fracture. Mild circumferential ankle soft tissue swelling. Cervical Spine CT 04/27/19 20:01 IMPRESSION: No acute fracture of the cervical spine. Osteoarthritis TECHNICAL DOCUMENTATION: Quality ID # [id number]: Final reports with documentation of one or more dose reduction techniques (e.g., Automated exposure control, adjustment of the mA and/or kV according to patient size, use of iterative reconstruction technique) copyright 2011 [employer]- All Rights Reserved All labs, radiographs, diagnostic studies and EKGs were personally reviewed: Yes In addition, reports of radiographic and diagnostic studies were read: Yes Critical Time Critical Time (minutes): 72 -: The care of a critically ill patient is dynamic. This note represents a static moment in the admission process. Orders and treatments may be given simultaneously and urgently, and time is not sales training representative of the treatment process. This patient requires Critical Care secondary to life threatening organ or limb dysfunction. Without Critical Care services, the patient is at risk for increased mortality and morbidity. <JUDD PAVON - Last Filed: 04/28/19 16:37> HPI - . Plan Summary: I personally examined patient discussed findings plan and care of CEE PUENTES. Agree with findings care and plan. Physical Exam Vital Signs: Temp Pulse Resp BP Pulse Ox 99.0 F 73 17 150/87 H 100 04/28/19 14:00 04/28/19 14:00 04/28/19 14:00 04/28/19 14:00 04/28/19 14:00 Intake & Output 04/27/19 04/28/19 04/29/19 06:59 06:59 06:59 Intake Total 1100 1000 Output Total 175 580 Balance 925 420 Weight 65.1 kg Weight/Height Weight 65.1 kg Height 6 ft 2 in Laboratory/Radiographs Laboratory Results: 04/27/19 16:07 04/28/19 13:31 04/27/19 04/27/19 04/27/19 16:07 16:07 19:18 WBC 9.9 RBC 4.52 Hgb 14.2 Hct 39.6 MCV 88 MCH 31.5 MCHC 35.9 RDW 15.5 H Plt Count 196 Seg Neutrophils % 75.1 Sodium 130.9 L Potassium 3.4 L Chloride 102 Carbon Dioxide 27 Anion Gap 2 L BUN 11 Creatinine 0.40 L Est GFR ( Amer) > 60 Glucose 170 H Calcium 8.4 Phosphorus Magnesium 1.5 L Total Bilirubin 0.4 AST 20 Alkaline Phosphatase 45 Total Protein 5.2 L Albumin 3.0 L Urine Color YELLOW Urine Appearance SLIGHTLY-CLOUDY Urine pH 6.0 Ur Specific [place] 1.019 Urine Protein 30 H Urine Glucose (UA) NEGATIVE Urine Ketones NEGATIVE Urine Blood LARGE H Urine Nitrite NEGATIVE Ur Leukocyte Esterase SMALL H Urine WBC (Auto) 49 Urine RBC (Auto) 24 04/28/19 13:31 WBC RBC Hgb Hct MCV MCH MCHC RDW Plt Count Seg Neutrophils % Sodium 135.9 L Potassium 3.7 Chloride 104 Carbon Dioxide 24 Anion Gap 8 BUN 10 Creatinine 0.31 L Est GFR ( Amer) > 60 Glucose 152 H Calcium 8.5 Phosphorus 4.2 Magnesium 1.5 L Total Bilirubin 0.7 AST 19 Alkaline Phosphatase 43 Total Protein 5.7 L Albumin 3.1 L Urine Color Urine Appearance Urine pH Ur Specific [place] Urine Protein Urine Glucose (UA) Urine Ketones Urine Blood Urine Nitrite Ur Leukocyte Esterase Urine WBC (Auto) Urine RBC (Auto) Impressions: Head CT 04/27/19 18:25 IMPRESSION: New 4.5 mm hyperdense focus within a known right lateral periatrial metastatic lesion suggestive of mild intralesional hemorrhage. Additional metas tatic lesions and prominent bilateral frontal parietal lobe vasogenic edema remain unchanged. EVIDENCE OF ACUTE STROKE: NO. Ankle X-Ray 04/27/19 18:27 IMPRESSION: 5 mm ossific fragment adjacent to me malleolus, most consistent with an age-indeterminate avulsion type fracture. Mild circumferential ankle soft tissue swelling. Cervical Spine CT 04/27/19 20:01 IMPRESSION: No acute fracture of the cervical spine. Osteoarthritis TECHNICAL DOCUMENTATION: Quality ID # 436: Final reports with documentation of one or more dose reduction techniques (e.g., Automated exposure control, adjustment of the mA and/or kV according to patient size, use of iterative reconstruction technique) copyright 2011 [employer]- All Rights Reserved Critical Time -: The care of a critically ill patient is dynamic. This note represents a static moment in the admission process. Orders and treatments may be given simultaneously and urgently, and time is not sales training representative of the treatment process. This patient requires Critical Care secondary to life threatening organ or limb dysfunction. Without Critical Care services, the patient is at risk for increased mortality and morbidity.
[2019-04-28] MEDS ORDERED: DEXTROSE 40% GEL 15 GM TUBE PO PRN ×2 (00:32)
[2019-04-28] MEDS ORDERED: DEXTROSE 50%-WATER 25 GM/50 ML DISP.SYRIN IV PRN ×2 (00:32)
[2019-04-28] MEDS ORDERED: GLUCAGON,HUMAN RECOMB 1 MG INJ IM PRN (00:32)
[2019-04-28] MEDS: NORMAL SALINE 1000 ML 1,000 ML IV PRN ×2 (02:04→14:35)
[2019-04-28] MEDS: DEXAMETHASONE SOD PHOSPHATE INJ 4 MG/1 ML VIAL IV SCH ×4 (02:04→18:06)
[2019-04-28] MEDS: LORAZEPAM INJ 2 MG/1 ML VIAL IV PRN ×2 (02:04→16:47)
[2019-04-28] MEDS: INSULIN REG, HUMAN 100 UNIT/ML 3 ML VIAL (PYX) SUBCUT SCH ×3 (07:17→18:06)
[2019-04-28] MEDS ORDERED: LEVETIRACETAM 1500 MG/NACL-ISO 1,500 MG/100 ML RTUPB IV SCH (10:00)
[2019-04-28] MEDS: LACOSAMIDE INJ/PF 200 MG/20 ML SDV IV SCH ×2 (10:06→21:56)
[2019-04-28 12:27] LABS: INTERNATIONAL RATION (INR) 1.07; PROTHROMBIN TIME 13.9 SEC (11.4-15.4)
[2019-04-28 13:57] LABS: ALBUMIN 3.1 g/dL (3.5-5.0); ALKALINE PHOSPHATASE 43 U/L (38-126); ANION GAP 8 (5-19); ASPARTATE AMINO TRANSFERASE 19 U/L (17-59); BILIRUBIN,DIRECT 0.3 mg/dL (0.0-0.4); BILIRUBIN,TOTAL 0.7 mg/dL (0.2-1.3); BLOOD UREA NITROGEN 10 mg/dL (7-20); CALCIUM 8.5 mg/dL (8.4-10.2); CARBON DIOXIDE 24 mmol/L (22-30); CHLORIDE 104 mmol/L (98-107); GLUCOSE 152 mg/dL (75-110); PHOSPHORUS 4.2 mg/dL (2.5-4.5); POTASSIUM 3.7 mmol/L (3.6-5.0); TOTAL PROTEIN 5.7 g/dL (6.3-8.2)
[2019-04-28] MEDS ORDERED: MAGNESIUM SULFATE 4 GM/100 ML RTUPB IV ONE (16:32)
[2019-04-28] MEDS: MAGNESIUM SULFATE/D5W 1 GM/100 ML RTUPB IV SCH ×4 (17:09→21:55)
--- NOTE | 2019-04-28 17:26 | PDOC CRITICAL CARE PROG REPORT ---
General Date:: 04/28/19 ICU Day:: 1 Hospital Day:: 1 Resuscitation Status: DNR/DNI Medical Power of Investigator Operator: Events in the past 12 to 24 Hours:: 04.28.2019: Patient admitted late 04/27/2019 with altered mental status and seizures fall from his wheelchair. He is on CT scan to have what appears to be intralesional small punctate hemorrhage. Required Ativan last evening for what appeared to be nonconvulsive or partial complex seizures. He is noncommunicative this morning and responds only to noxious stimuli. During afternoon rounds after his MRI he was noted to be looking to the left with mild nystagmus and sonorous breathing. He was given Ativan and concern for seizure. This was not a tonic-clonic presentation Review of systems relevant to events:: 04.28.2019: Patient unable to offer any review of symptoms. Nursing notes no seizures. The dynamics have been non-labile with only a transient blood pressure elevation x1 of 180. Repeat blood pressure was below 160. Reason for ICU Addmission:: Seizures - Medications: Medications reviewed and adjusted accordingly: Yes Physical Exam Vital Signs: Temp Pulse Resp BP Pulse Ox 99.0 F 73 17 150/87 H 100 04/28/19 14:00 04/28/19 14:00 04/28/19 14:00 04/28/19 14:00 04/28/19 14:00 Intake & Output 04/27/19 04/28/19 04/29/19 06:59 06:59 06:59 Intake Total 1100 1000 Output Total 175 580 Balance 925 420 Weight 65.1 kg Weight/Height Weight 65.1 kg Height 6 ft 2 in General appearance: PRESENT: no acute distress, disheveled, thin, well- developed, well-nourished Exam: Older appearing ill 64-year-old black male no acute distress. He is responsive only to noxious stimulus. Head exam: PRESENT: other - Small skin tear proximal nose caudal to glabella. No nasal deformity Eye exam: PRESENT: conjunctival injection, conjunctiva pink, PERRLA. ABSENT: nystagmus, scleral icterus Ear exam: PRESENT: normal external ear exam. ABSENT: bleeding Mouth exam: PRESENT: dry mucosa, neck supple Teeth exam: PRESENT: poor dentation Neck exam: ABSENT: carotid bruit, JVD, lymphadenopathy, meningismus, tenderness, tracheal deviation Respiratory exam: PRESENT: clear to auscultation roman, unlabored. ABSENT: accessory muscle use, rales, rhonchi, tachypnea, wheezes Cardiovascular exam: PRESENT: RRR, +S1, +S2 Pulses: PRESENT: +1 pedal pulses bilateral Vascular exam: PRESENT: normal capillary refill GI/Abdominal exam: PRESENT: normal bowel sounds, soft. ABSENT: ascites, distended, guarding, mass, organolmegaly, rebound, tenderness Rectal exam: PRESENT: deferred Gentrourinary exam: PRESENT: indwelling catheter Extremities exam: ABSENT: pedal edema Musculoskeletal exam: ABSENT: deformity, dislocation Neurological exam: PRESENT: altered, other - FOUR score: [place] Coma Scale is 215=8. Tubes/Lines: PRESENT: Other - Urinary catheter Laboratory/Radiographs Laboratory Results: 04/27/19 16:07 04/28/19 13:31 04/27/19 04/27/19 04/27/19 16:07 16:07 19:18 WBC 9.9 RBC 4.52 Hgb 14.2 Hct 39.6 MCV 88 MCH 31.5 MCHC 35.9 RDW 15.5 H Plt Count 196 Seg Neutrophils % 75.1 Sodium 130.9 L Potassium 3.4 L Chloride 102 Carbon Dioxide 27 Anion Gap 2 L BUN 11 Creatinine 0.40 L Est GFR ( Amer) > 60 Glucose 170 H Calcium 8.4 Phosphorus Magnesium 1.5 L Total Bilirubin 0.4 AST 20 Alkaline Phosphatase 45 Total Protein 5.2 L Albumin 3.0 L Urine Color YELLOW Urine Appearance SLIGHTLY-CLOUDY Urine pH 6.0 Ur Specific [place] 1.019 Urine Protein 30 H Urine Glucose (UA) NEGATIVE Urine Ketones NEGATIVE Urine Blood LARGE H Urine Nitrite NEGATIVE Ur Leukocyte Esterase SMALL H Urine WBC (Auto) 49 Urine RBC (Auto) 24 04/28/19 13:31 WBC RBC Hgb Hct MCV MCH MCHC RDW Plt Count Seg Neutrophils % Sodium 135.9 L Potassium 3.7 Chloride 104 Carbon Dioxide 24 Anion Gap 8 BUN 10 Creatinine 0.31 L Est GFR ( Amer) > 60 Glucose 152 H Calcium 8.5 Phosphorus 4.2 Magnesium 1.5 L Total Bilirubin 0.7 AST 19 Alkaline Phosphatase 43 Total Protein 5.7 L Albumin 3.1 L Urine Color Urine Appearance Urine pH Ur Specific [place] Urine Protein Urine Glucose (UA) Urine Ketones Urine Blood Urine Nitrite Ur Leukocyte Esterase Urine WBC (Auto) Urine RBC (Auto) Impressions: Head CT 04/27/19 18:25 IMPRESSION: New 4.5 mm hyperdense focus within a known right lateral periatrial metastatic lesion suggestive of mild intralesional hemorrhage. Additional metastatic lesions and prominent bilateral frontal parietal lobe vasogenic edema remain unchanged. EVIDENCE OF ACUTE STROKE: NO. Ankle X-Ray 04/27/19 18:27 IMPRESSION: 5 mm ossific fragment adjacent to me malleolus, most consistent with an age-indeterminate avulsion type fracture. Mild circumferential ankle soft tissue swelling. Cervical Spine CT 04/27/19 20:01 IMPRESSION: No acute fracture of the cervical spine. Osteoarthritis TECHNICAL DOCUMENTATION: Quality ID # 436: Final reports with documentation of one or more dose reduction techniques (e.g., Automated exposure control, adjustment of the mA and/or kV according to patient size, use of iterative reconstruction technique) copyright 2011 [employer] All Rights Reserved All labs, radiographs, diagnostic studies and EKGs were personally reviewed: Yes In addition, reports of radiographic and diagnostic studies were read: Yes Assessment and Plan - Diagnosis (1) Status epilepticus due to complex partial seizure Is this a current diagnosis for this admission?: Yes (2) Hyponatremia Is this a current diagnosis for this admission?: Yes (3) Lung cancer metastatic to brain Is this a current diagnosis for this admission?: Yes (4) Seizure disorder Is this a current diagnosis for this admission?: Yes (5) Brain mass Is this a current diagnosis for this admission?: Yes (6) Diabetes Qualifiers: Diabetes mellitus type: type 2 Diabetes mellitus snf insulin use: unspecified snf insulin use status Diabetes mellitus complication status: with hyperglycemia Qualified Code(s): E11.65 - Type 2 diabetes mellitus with hyperglycemia Is this a current diagnosis for this admission?: Yes (7) Hemiparesis of right dominant side Qualifiers: Hemiparesis etiology: non-cerebrovascular etiology Qualified Code(s): G81.91 - Hemiplegia, unspecified affecting right dominant side Is this a current diagnosis for this admission?: Yes (8) Hypomagnesemia Is this a current diagnosis for this admission?: Yes (9) Primary cancer of right lower lobe of lung Is this a current diagnosis for this admission?: Yes (10) Coma Qualifiers: Coma depth: Bri coma 3-8 Is this a current diagnosis for this admission?: Yes Plan Summary: 04.28.2019: I am very concerned about this patient and have ordered an MRI. View of the CAT scan there appears to be possible punctate hemorrhage but also this may represent creasing growth with calcification as a result. I reviewed the MRI personally before official radiology report. There are increased size masses that were previously smaller and in addition development of new masses. There appears to be heterogeneously intense signal but most of the lesions are ring- enhancing and enlarged. Awaiting official radiographic results. 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 We are in a difficult situation because it would be preferable to have his sodium levels higher however we do not want to induce a demyelination syndrome. I have discussed with his who is wanting to make him comfort care and is entertaining early hospice transition. However his immediate family including brothers and sisters feel that there is hope and would want to push with fully aggressive measures. We discussed the fact that neurosurgical care is not warranted nor would it be of any benefit and in fact may worsen his outcome. Did place a phone call to his oncologist, Dr. Dorado. He had encouraged and started the process of hospice for this patient however at the time the patient became lucid and did not want this. The situation is now changed given the comparative increase in size of the lesions and his current neurological state. Would not want him intubated nor undergo resuscitation should that occur. Concerned that we may be encountering a refractory status epilepticus situation and we currently do not have continuous EEG monitoring. It is reduced neurological status which may have been from the Ativan he received or higher dose Keppra I have decreased the Keppra to 1000 mg twice a day and added Vimpat. Need to monitor effect and also watch LFTs. If this is not effective we will be forced to add Dilantin which is difficult to manage in the face of Decadron which this patient has been on and the dose has been increased. This is a near terminal situation and we wait his brother who is been caring for him as well so that we can discuss further care. If they wish to pursue aggressive care then we will be forced to transfer the patient to a tertiary care center for further care. Critical Time Critical Time (minutes): 90 Level of Care: ICU Anticipated discharge: Other -: 1. The care of a critical patient is a dynamic process. This note is a inside sales representative synopsis but static in nature. The timeframe for treatments given in order is not necessarily the actual time these treatments may have been done. 2. This patient requires critical care secondary to ongoing requirements for therapy not offered or safe outside the critical care environment. Transfer to a lower level of care will result in altered life or limb morbidity and mortality. 3. Multidisciplinary rounds completed. 4. ABCDE bundle addressed.
--- NOTE | 2019-04-28 17:41 | RADIOLOGY REPORT (SQ) ---
EXAM DESCRIPTION: MRI HEAD COMBO COMPLETED DATE/TIME: 04/28/2019 5:04 pm REASON FOR STUDY: brain tumor COMPARISON: 02/25/2019 TECHNIQUE: Multiplanar imaging includes noncontrasted T1, T2, FLAIR, diffusion with ADC map and post gadolinium contrast T1 sequences. Images stored on PACS. CONTRAST TYPE AND DOSE: 10 mL Dotarem. RENAL FUNCTION: GFR > 60. LIMITATIONS: None. FINDINGS: CEREBRUM: Progression of multiple rim enhancing parenchymal masses throughout the cerebral hemispheres, largest measuring 3 cm in the deep white matter of the right frontal lobe. Vasogenic e bridger is present throughout the cerebral hemispheric white matter, this has significantly progressed c ompared with the prior study, particularly in the left temporoparietal location with mild mass effect on the posterior aspect of the left lateral ventricle. Multiple lesions have evidence for prior hem orrhage -calcification on T1 and gradient images. Restricted peripheral diffusion is present in all the identified lesions. No extraaxial fluid collection. POSTERIOR FOSSA: No masses. Internal auditory canals, cerebellopontine angles, mastoids normal. ORBITS: Globes normal. PARANASAL SINUSES: Mucosal thickening- opacification of the frontal and anterior ethmoid sinuses. Sm all left mastoid effusion. OTHER: No evidence for large vessel infarction. Postprocedural changes are noted in the right occipi maximiliano -parietal region. IMPRESSION: Progression of multiple rim enhancing parenchymal masses throughout the cerebral hemisph eres, largest measuring 3 cm in the deep white matter of the right frontal lobe. Vasogenic edema is present throughout the cerebral hemispheric white matter, this has significantly progressed compared with the prior study, particularly in the left temporoparietal location with mild mass effect on the posterior aspect of the left lateral ventricle. Multiple lesions have evidence for prior hemorrhage -calcification on T1 and gradient images. Restricted peripheral diffusion is present in all the iden tified lesions. No evidence for large vessel infarction. EVIDENCE OF ACUTE STROKE: NO. TECHNICAL DOCUMENTATION: JOB ID: [id number] [employer]- All Rights Reserved Reading location - IP/workstation name: [email or web address]
[2019-04-28 17:48] LABS: ANION GAP 6 (5-19); BLOOD UREA NITROGEN 9 mg/dL (7-20); CALCIUM 8.4 mg/dL (8.4-10.2); CARBON DIOXIDE 24 mmol/L (22-30); CHLORIDE 105 mmol/L (98-107); GLUCOSE 159 mg/dL (75-110); POTASSIUM 3.7 mmol/L (3.6-5.0)
[2019-04-28] MEDS ORDERED: CEFTRIAXONE 1 GM/D5W RTU 1 GM/50 ML RTUPB IV SCH (18:00)
--- NOTE | 2019-04-28 18:03 | Progress Note ---
Provider Note Provider Note: Reviewed MRI after official reading. It is in it with our finding that there have been no acute bleeds with calcification. The masses have increased in both size and number. Met with the , Mariann and his brother Harrison (who is been recently reintroduced into the patient's life after some time). Shared with him the neurosurgical opinion as well as the opinion of the oncology service that the patient is involved with. Given the fact that he has significant seizures with multiple increased size lesions the has agreed to hospice and comfort care. Brother Harrison is in agreement as well. I shared with them that we will have the hospice team evaluate tomorrow and offer him options. My suggestion would be for inpatient given the fact that his seizures have been difficult to control. We will continue AEDs and a palliative fashion. Should seizures become worse the family has opted for him to have comfort and are in agreement for Ativan to control.
[2019-04-28 19:48] LABS: APPEARANCE,URINE SLIGHTLY-CLOUDY; BILIRUBIN,URINE NEGATIVE (NEGATIVE); COLOR,URINE YELLOW; GLUCOSE, URINE 50 mg/dL (NEGATIVE); KETONES,URINE TRACE mg/dL (NEGATIVE); LEUKOCYTE ESTERASE,URINE NEGATIVE (NEGATIVE); NITRITE,URINE NEGATIVE (NEGATIVE); PROTEIN,URINE NEGATIVE (NEGATIVE); URINE SPECIFIC GRAVITY 1.011; UROBILINOGEN,URINE NEGATIVE mg/dL (<2.0)
[2019-04-28 19:56] LABS: URINE CREATININE 21.6 mg/dL (22-328)
--- NOTE | 2019-04-29 00:23 | EKG REPORT ---
SEVERITY:- ABNORMAL ECG - SINUS RHYTHM : Confirmed by: Jake Perez 29-Apr-2019 00:21:39
[2019-04-29] MEDS: INSULIN REG, HUMAN 100 UNIT/ML 3 ML VIAL (PYX) SUBCUT SCH ×3 (00:40→13:10)
[2019-04-29] MEDS: DEXAMETHASONE SOD PHOSPHATE INJ 4 MG/1 ML VIAL IV SCH ×3 (00:40→13:10)
[2019-04-29] MEDS: NORMAL SALINE 1000 ML 1,000 ML IV PRN (03:30)
[2019-04-29 03:59] LABS: ABSOLUTE LYMPHOCYTES (AUTO) 0.6 10^3/uL (0.5-4.7); ABSOLUTE MONOCYTES (AUTO) 0.4 10^3/uL (0.1-1.4); BASOPHILS % (AUTO) 0.3 % (0-2); TOTAL CELLS COUNTED % (AUTO) 100 %; WHITE BLOOD COUNT 10.3 10^3/uL (4.0-10.5)
[2019-04-29 04:03] LABS: ABSOLUTE NEUT (AUTO) 9.3 10^3/uL (1.7-8.2); HEMATOCRIT 39.8 % (37.9-51.0); LYMPHOCYTES % (AUTO) 5.8 % (13-45); MEAN CORPUSCULAR HEMOGLOBIN 30.9 pg (27.0-33.4); MEAN CORPUSCULAR HGB CONC 35.2 g/dL (32.0-36.0); MEAN CORPUSCULAR VOLUME 88 fl (80-97); MONOCYTES % (AUTO) 3.9 % (3-13); PLATELET COUNT 161 10^3/uL (150-450); RED BLOOD COUNT 4.52 10^6/uL (4.35-5.55); RED CELL DISTRIBUTION WIDTH 15.4 % (11.5-14.0)
[2019-04-29 04:24] LABS: ALKALINE PHOSPHATASE 44 U/L (38-126); ANION GAP 8 (5-19); ASPARTATE AMINO TRANSFERASE 16 U/L (17-59); BILIRUBIN,DIRECT 0.3 mg/dL (0.0-0.4); BILIRUBIN,TOTAL 0.6 mg/dL (0.2-1.3); BLOOD UREA NITROGEN 10 mg/dL (7-20); CALCIUM 8.2 mg/dL (8.4-10.2); CARBON DIOXIDE 24 mmol/L (22-30); CHLORIDE 102 mmol/L (98-107); GLUCOSE 191 mg/dL (75-110); PHOSPHORUS 3.7 mg/dL (2.5-4.5); POTASSIUM 3.6 mmol/L (3.6-5.0); TOTAL PROTEIN 5.3 g/dL (6.3-8.2)
[2019-04-29] MEDS: LACOSAMIDE INJ/PF 200 MG/20 ML SDV IV SCH (09:38)
--- NOTE | 2019-04-29 09:41 | PDOC CONSULTATION ---
Consultation Consult Date: 04/29/19 Provider Consulted: DIAZ GREGG Consult reason:: Hematology/Oncology consultation was requested for patient with known cancer, receiving treatment. 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 He has had known brain mets since diagnosis. He has undergone several types of treatment, most recently Keytruda. However, despite aggressive treatments, his brain lesions have been progressing. He has been maintained on anti-seizure medications, but continues to have seizures. Today, he is in the ICU. His eyes are open and he is blinking, but he does not respond to voice or touch. He does not make eye contact. No family is available. However, I spoke with Dr. Landin. He tells me that he spoke with family and they have agreed to Hospice. They have arranged a meeting today to discuss home vs. inpatient Hospice due to his seizures being difficult to control. I agree with this plan. Past Medical History Cardiac Medical History: Reports: Coronary Artery Disease, Hyperlipidema, Hypertension Denies: Myocardial Infarction Pulmonary Medical History: Denies: Asthma, Bronchitis, Chronic Obstructive Pulmonary Disease (COPD), Pneumonia Neurological Medical History: Reports: Seizures Endocrine Medical History: Reports: Diabetes Mellitus Type 2 Malignancy Medical History: Reports: Lung Cancer Musculoskeltal Medical History: Denies: Arthritis Psychiatric Medical History: Reports: Alcohol Dependency, Tobacco Dependency Hematology: Denies: Anemia Past Surgical History Past Surgical History: Reports: Other - bronchoscopy with biopsy, brain tumor resection, colonoscopy Social History Smoking Status: Unknown if Ever Smoked Frequency of Alcohol Use: Heavy Hx Recreational Drug Use: No Drugs: None Hx Prescription Drug Abuse: No - Advance Directive Resuscitation Status: DNR/DNI Family History Family History: None Parental Family History Reviewed: Yes - According to my medical records, mother with DM and dementia. Children Family History Reviewed: No Sibling(s) Family History Reviewed.: No Medication/Allergy Home Medications: Ergocalciferol (Vitamin D2) [Drisdol 50,000 unit (1.25MG) Capsule] 50,000 unit PO [id number]@1000 03/21/19 Fenofibrate Nanocrystallized [Tricor 145 mg Tablet] 145 mg PO DAILY 03/21/19 Levetiracetam [Keppra] 1,000 mg PO DAILY 03/21/19 Megestrol Acetate [Megace 20 mg Tablet] 20 mg PO DAILY 03/21/19 Metformin HCl [Glucophage 500 mg Tablet] 1,000 mg PO BID 03/21/19 Pantoprazole Sodium [Protonix [address] Tablet] 40 mg PO DAILY 03/21/19 Dexamethasone [Decadron 4 mg Tablet] 4 mg PO Q12 #14 tablet 03/25/19 Atorvastatin Calcium [Lipitor 40 mg Tablet] 40 mg PO QHS 04/28/19 Icosapent Ethyl [Vascepa] 1 gm PO QID 04/28/19 Megestrol Acetate [Megace Elise 400 mg/10 ml Udcup] 400 mg PO DAILY 04/28/19 Nifedipine [Nifedipine ER] 60 mg PO DAILY 04/28/19 Sitagliptin Phosphate [Januvia 50 mg Tablet] 50 mg PO DAILY 04/28/19 Allergies/Adverse Reactions: Penicillins Allergy (Verified 04/25/19 10:44) Review of Systems ROS unobtainable: Due to mental status Physical Exam Vital Signs: Temp Pulse Resp BP Pulse Ox 98.1 F 62 12 133/91 H 100 04/29/19 06:00 04/29/19 07:58 04/29/19 06:06 04/29/19 06:06 04/29/19 06:06 Intake & Output 04/28/19 04/29/19 04/30/19 06:59 06:59 06:59 Intake Total 1100 2269 Output Total 175 2405 125 Balance 925 -136 -125 Weight 65.1 kg 63.7 kg General appearance: PRESENT: well-developed, well-nourished Exam: 64 year old male. Not responding to me. Head exam: PRESENT: atraumatic, normocephalic Eye exam: PRESENT: PERRLA Mouth exam: PRESENT: moist Neck exam: ABSENT: lymphadenopathy, tenderness Respiratory exam: PRESENT: unlabored, other - Upper airway noise bilaterally. Cardiovascular exam: PRESENT: RRR GI/Abdominal exam: PRESENT: normal bowel sounds, soft Extremities exam: ABSENT: pedal edema Neurological exam: PRESENT: altered Psychiatric exam: PRESENT: flat affect Skin exam: PRESENT: normal color Results Laboratory Results: 04/29/19 03:53 04/29/19 03:53 04/28/19 04/28/19 04/28/19 13:31 17:14 17:50 WBC RBC Hgb Hct MCV MCH MCHC RDW Plt Count Seg Neutrophils % Sodium 135.9 L 135.1 L Potassium 3.7 3.7 Chloride 104 105 Carbon Dioxide 24 24 Anion Gap 8 6 BUN 10 9 Creatinine 0.31 L 0.34 L Est GFR ( Amer) > 60 > 60 Glucose 152 H 159 H Lactic Acid 1.6 Calcium 8.5 8.4 Phosphorus 4.2 Magnesium 1.5 L Total Bilirubin 0.7 AST 19 Alkaline Phosphatase 43 Ammonia Total Protein 5.7 L Albumin 3.1 L Urine Color Urine Appearance Urine pH Ur Specific [place] Urine Protein Urine Glucose (UA) Urine Ketones Urine Blood Urine Nitrite Ur Leukocyte Esterase Urine WBC (Auto) Urine RBC (Auto) 04/28/19 04/29/19 04/29/19 19:15 03:53 03:53 WBC RBC Hgb Hct MCV MCH MCHC RDW Plt Count Seg Neutrophils % Sodium 133.5 L Potassium 3.6 Chloride 102 Carbon Dioxide 24 Anion Gap 8 BUN 10 Creatinine 0.40 L Est GFR ( Amer) > 60 Glucose 191 H Lactic Acid Calcium 8.2 L Phosphorus 3.7 Magnesium 2.2 Total Bilirubin 0.6 AST 16 L Alkaline Phosphatase 44 Ammonia < 8.7 L Total Protein 5.3 L Albumin 3.0 L Urine Color YELLOW Urine Appearance SLIGHTLY-CLOUDY Urine pH 7.0 Ur Specific [place] 1.011 Urine Protein NEGATIVE Urine Glucose (UA) 50 H Urine Ketones TRACE H Urine Blood LARGE H Urine Nitrite NEGATIVE Ur Leukocyte Esterase NEGATIVE Urine WBC (Auto) 15 Urine RBC (Auto) >182 04/29/19 03:53 WBC 10.3 RBC 4.52 Hgb 14.0 Hct 39.8 MCV 88 MCH 30.9 MCHC 35.2 RDW 15.4 H Plt Count 161 Seg Neutrophils % 90.0 H Sodium Potassium Chloride Carbon Dioxide Anion Gap BUN Creatinine Est GFR ( Amer) Glucose Lactic Acid Calcium Phosphorus Magnesium Total Bilirubin AST Alkaline Phosphatase Ammonia Total Protein Albumin Urine Color Urine Appearance Urine pH Ur Specific [place] Urine Protein Urine Glucose (UA) Urine Ketones Urine Blood Urine Nitrite Ur Leukocyte Esterase Urine WBC (Auto) Urine RBC (Auto) Impressions: Head CT 04/27/19 18:25 IMPRESSION: New 4.5 mm hyperdense focus within a known right lateral periatrial metastatic lesion suggestive of mild intralesional hemorrhage. Additional metastatic lesions and prominent bilateral frontal parietal lobe vasogenic edema remain unchanged. EVIDENCE OF ACUTE STROKE: NO. Ankle X-Ray 04/27/19 18:27 IMPRESSION: 5 mm ossific fragment adjacent to me malleolus, most consistent with an age-indeterminate avulsion type fracture. Mild circumferential ankle soft tissue swelling. Cervical Spine CT 04/27/19 20:01 IMPRESSION: No acute fracture of the cervical spine. Osteoarthritis TECHNICAL DOCUMENTATION: Quality ID # [id number]: Final reports with documentation of one or more dose reduction techniques (e.g., Automated exposure control, adjustment of the mA and/or kV according to patient size, use of iterative reconstruction technique) copyright 2011 [employer]- All Rights Reserved Head MRI 04/28/19 00:00 IMPRESSION: Progression of multiple rim enhancing parenchymal masses throughout the cerebral hemispheres, largest measuring 3 cm in the deep white matter of the right frontal lobe. Vasogenic edema is present throughout the cerebral hemispheric white matter, this has significantly progressed compared with the prior study, particularly in the left temporoparietal location with mild mass effect on the posterior aspect of the left lateral ventricle. Multiple lesions have evidence for prior hemorrhage -calcification on T1 and gradient images. Restricted peripheral diffusion is present in all the identified lesions. No evidence for large vessel infarction. EVIDENCE OF ACUTE STROKE: NO. Status: Image reviewed by me Assessment & Plan - Diagnosis (1) Lung cancer metastatic to brain Is this a current diagnosis for this admission?: Yes Plan: Agree with Hospice care. Will arrange [facility]KA. (2) Status epilepticus due to complex partial seizure Is this a current diagnosis for this admission?: Yes Plan: Continue seizure medications. - Plan Summary Plan Summary: Patient was discussed with Dr. Carr. Will move to palliative care only.
--- NOTE | 2019-04-29 15:00 | PDOC CRITICAL CARE PROG REPORT ---
General Date:: 04/29/19 ICU Day:: 2 Hospital Day:: 2 Resuscitation Status: DNR/DNI Medical Power of Focused Factory Manager: Events in the past 12 to 24 Hours:: 04.29.2019: Patient has remained comatose without any notable active seizure. MRI consistent with extensive metastatic disease with evolution of microhemorrhage leading to calcification within tumor bed. Had lengthy discussion with the , Mariann and the patient's brother Harrison. Given the circumstances he was transitioned to DNR/DNI with comfort care as an option. We are currently waiting hospice team to place patient. 04.28.2019: Patient admitted late 04/27/2019 with altered mental status and seizures fall from his wheelchair. He is on CT scan to have what appears to be intralesional small punctate hemorrhage. Required Ativan last evening for what appeared to be nonconvulsive or partial complex seizures. He is noncommunicative this morning and responds only to noxious stimuli. During afternoon rounds after his MRI he was noted to be looking to the left with mild nystagmus and sonorous breathing. He was given Ativan and concern for seizure. This was not a tonic-clonic presentation Review of systems relevant to events:: 04.29.2019: No demonstrable improvement. Last evening he appeared to have some non-generalized movement and upward gaze with automaticity's of the mouth concerning for partial complex seizure. He was given Ativan. 04.28.2019: Patient unable to offer any review of symptoms. Nursing notes no seizures. The dynamics have been non-labile with only a transient blood pressure elevation x1 of 180. Repeat blood pressure was below 160. Reason for ICU Addmission:: Seizures - Medications: Medications reviewed and adjusted accordingly: Yes Sedation:: None except for intermittent Ativan for Seizure Physical Exam Vital Signs: Temp Pulse Resp BP Pulse Ox 98.1 F 62 12 133/91 H 100 04/29/19 06:00 04/29/19 07:58 04/29/19 06:06 04/29/19 06:06 04/29/19 06:06 Intake & Output 04/28/19 04/29/19 04/30/19 06:59 06:59 06:59 Intake Total 1100 2269 Output Total 175 2405 125 Balance 925 -136 -125 Weight 65.1 kg 63.7 kg Weight/Height Weight 63.7 kg Height 6 ft 2 in General appearance: PRESENT: no acute distress, thin, well-developed Exam: Older appearing 64-year-old black male with minimal response to noxious stimuli of the left arm. He is in no active distress. No evidence to support active seizure Head exam: PRESENT: atraumatic, normocephalic Eye exam: PRESENT: conjunctiva pink, PERRLA. ABSENT: conjunctival injection, nystagmus, scleral icterus Ear exam: PRESENT: normal external ear exam Mouth exam: PRESENT: dry mucosa Teeth exam: PRESENT: poor dentation Neck exam: ABSENT: carotid bruit, JVD, lymphadenopathy, meningismus, thyromegaly, tracheal deviation Respiratory exam: PRESENT: clear to auscultation roman, unlabored. ABSENT: accessory muscle use, rales, rhonchi, tachypnea, wheezes Cardiovascular exam: PRESENT: RRR, +S1, +S2 Pulses: PRESENT: +1 pedal pulses bilateral Vascular exam: PRESENT: normal capillary refill, pallor GI/Abdominal exam: PRESENT: normal bowel sounds, soft. ABSENT: ascites, distended, guarding, mass, organolmegaly, rebound, tenderness Rectal exam: PRESENT: deferred Gentrourinary exam: PRESENT: indwelling catheter Extremities exam: ABSENT: pedal edema Musculoskeletal exam: ABSENT: deformity, dislocation Neurological exam: PRESENT: altered, other - Glascow coma scale:1-1-4: Reduced from 8 yesterday. FOUR score:E:0, M2, B4, R:4. Babinski equivocal Laboratory/Radiographs Laboratory Results: 04/29/19 03:53 04/29/19 03:53 04/28/19 04/28/19 04/28/19 13:31 17:14 17:50 WBC RBC Hgb Hct MCV MCH MCHC RDW Plt Count Seg Neutrophils % Sodium 135.9 L 135.1 L Potassium 3.7 3.7 Chloride 104 105 Carbon Dioxide 24 24 Anion Gap 8 6 BUN 10 9 Creatinine 0.31 L 0.34 L Est GFR ( Amer) > 60 > 60 Glucose 152 H 159 H Lactic Acid 1.6 Calcium 8.5 8.4 Phosphorus 4.2 Magnesium 1.5 L Total Bilirubin 0.7 AST 19 Alkaline Phosphatase 43 Ammonia Total Protein 5.7 L Albumin 3.1 L Urine Color Urine Appearance Urine pH Ur Specific [place] Urine Protein Urine Glucose (UA) Urine Ketones Urine Blood Urine Nitrite Ur Leukocyte Esterase Urine WBC (Auto) Urine RBC (Auto) 04/28/19 04/29/19 04/29/19 19:15 03:53 03:53 WBC RBC Hgb Hct MCV MCH MCHC RDW Plt Count Seg Neutrophils % Sodium 133.5 L Potassium 3.6 Chloride 102 Carbon Dioxide 24 Anion Gap 8 BUN 10 Creatinine 0.40 L Est GFR ( Amer) > 60 Glucose 191 H Lactic Acid Calcium 8.2 L Phosphorus 3.7 Magnesium 2.2 Total Bilirubin 0.6 AST 16 L Alkaline Phosphatase 44 Ammonia < 8.7 L Total Protein 5.3 L Albumin 3.0 L Urine Color YELLOW Urine Appearance SLIGHTLY-CLOUDY Urine pH 7.0 Ur Specific [place] 1.011 Urine Protein NEGATIVE Urine Glucose (UA) 50 H Urine Ketones TRACE H Urine Blood LARGE H Urine Nitrite NEGATIVE Ur Leukocyte Esterase NEGATIVE Urine WBC (Auto) 15 Urine RBC (Auto) >182 04/29/19 03:53 WBC 10.3 RBC 4.52 Hgb 14.0 Hct 39.8 MCV 88 MCH 30.9 MCHC 35.2 RDW 15.4 H Plt Count 161 Seg Neutrophils % 90.0 H Sodium Potassium Chloride Carbon Dioxide Anion Gap BUN Creatinine Est GFR ( Amer) Glucose Lactic Acid Calcium Phosphorus Magnesium Total Bilirubin AST Alkaline Phosphatase Ammonia Total Protein Albumin Urine Color Urine Appearance Urine pH Ur Specific [place] Urine Protein Urine Glucose (UA) Urine Ketones Urine Blood Urine Nitrite Ur Leukocyte Esterase Urine WBC (Auto) Urine RBC (Auto) Impressions: Head CT 04/27/19 18:25 IMPRESSION: New 4.5 mm hyperdense focus within a known right lateral periatrial metastatic lesion suggestive of mild intralesional hemorrhage. Additional metastatic lesions and prominent bilateral frontal parietal lobe vasogenic edema remain unchanged. EVIDENCE OF ACUTE STROKE: NO. Ankle X-Ray 04/27/19 18:27 IMPRESSION: 5 mm ossific fragment adjacent to me malleolus, most consistent with an age-indeterminate avulsion type fracture. Mild circumferential ankle soft tissue swelling. Cervical Spine CT 04/27/19 20:01 IMPRESSION: No acute fracture of the cervical spine. Osteoarthritis TECHNICAL DOCUMENTATION: Quality ID # 436: Final reports with documentation of one or more dose reduction techniques (e.g., Automated exposure control, adjustment of the mA and/or kV according to patient size, use of iterative reconstruction technique) copyright 2011 [employer]- All Rights Reserved Head MRI 04/28/19 00:00 IMPRESSION: Progression of multiple rim enhancing parenchymal masses throughout the cerebral hemispheres, largest measuring 3 cm in the deep white matter of the right frontal lobe. Vasogenic edema is present throughout the cerebral hemispheric white matter, this has significantly progressed compared with the prior study, particularly in the left temporoparietal location with mild mass effect on the posterior aspect of the left lateral ventricle. Multiple lesions have evidence for prior hemorrhage -calcification on T1 and gradient images. Restricted peripheral diffusion is present in all the identified lesions. No evidence for large vessel infarction. EVIDENCE OF ACUTE STROKE: NO. 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 Is this a current diagnosis for this admission?: Yes (3) Hyponatremia Is this a current diagnosis for this admission?: Yes (4) Lung cancer metastatic to brain Is this a current diagnosis for this admission?: Yes (5) Seizure disorder Is this a current diagnosis for this admission?: Yes (6) Brain mass Is this a current diagnosis for this admission?: Yes (7) Diabetes Qualifiers: Diabetes mellitus type: type 2 Diabetes mellitus penitentiary insulin use: unspecified penitentiary insulin use status Diabetes mellitus complication status: with hyperglycemia Qualified Code(s): E11.65 - Type 2 diabetes mellitus with hyperglycemia Is this a current diagnosis for this admission?: Yes (8) Hemiparesis of right dominant side Qualifiers: Hemiparesis etiology: non-cerebrovascular etiology Qualified Code(s): G81.91 - Hemiplegia, unspecified affecting right dominant side Is this a current diagnosis for this admission?: Yes (9) Hypomagnesemia Is this a current diagnosis for this admission?: Yes (10) Primary cancer of right lower lobe of lung Is this a current diagnosis for this admission?: Yes (11) Syndrome of inappropriate ADH (SIADH) secretion Is this a current diagnosis for this admission?: Yes (12) UTI (urinary tract infection), bacterial Is this a current diagnosis for this admission?: Yes Plan Summary: 04.29.2019: Patient remains comatose and his neurological exam appears to be worsening. Yesterday he had at least purposeful movement of the left arm but today has flexion of movements only. His last dose of Ativan was last evening and there is not been any observable clinical seizures. The family does not wish to pursue any aggressive care or measures. His urine is positive for infection as well. As noted below discussion was carried out with the family and repeated today. Given his decline the family has transitioned him to comfort care and we are a waiting hospice He also will need to be treated for his seizures and a palliative comfort measure and I have assured the family of this. They will need to decide whether they would like to continue steroids but at the risk of worsening his situation. We will continue to provide assurance and comfort care for both the family and the patient. 04.28.2019: I am very concerned about this patient and have ordered an MRI. View of the CAT scan there appears to be possible punctate hemorrhage but also this may represent increasing growth with calcification as a result. I reviewed the MRI personally before official radiology report. There are increased size masses that were previously smaller and in addition development of new masses. There appears to be heterogeneously intense signal but most of the lesions are ring- enhancing and enlarged. Awaiting official radiographic results. 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 We are in a difficult situation because it would be preferable to have his sodium levels higher however we do not want to induce a demyelination syndrome. I have discussed with his who is wanting to make him comfort care and is entertaining early hospice transition. However his immediate family including brothers and sisters feel that there is hope and would want to push with fully aggressive measures. We discussed the fact that neurosurgical care is not warranted nor would it be of any benefit and in fact may worsen his outcome. Did place a phone call to his oncologist, Dr. Dorado. He had encouraged and started the process of hospice for this patient however at the time the patient became lucid and did not want this. The situation is now changed given the comparative increase in size of the lesions and his current neurological state. Would not want him intubated nor undergo resuscitation should that occur. Concerned that we may be encountering a refractory status epilepticus situation and we currently do not have continuous EEG monitoring. It is reduced neurological status which may have been from the Ativan he received or higher dose Keppra I have decreased the Keppra to 1000 mg twice a da y and added Vimpat. Need to monitor effect and also watch LFTs. If this is not effective we will be forced to add Dilantin which is difficult to manage in the face of Decadron which this patient has been on and the dose has been increased. This is a near terminal situation and we wait his brother who is been caring for him as well so that we can discuss further care. If they wish to pursue aggre ssive care then we will be forced to transfer the patient to a tertiary care center for further care. Critical Time Critical Time (minutes): 40 Level of Care: ICU Anticipated discharge: Hospice Within: within 24 hours -: 1. The care of a critical patient is a dynamic process. This note is a registration representative synopsis but static in nature. The timeframe for treatments given in order is not necessarily the actual time these treatments may have been done. 2. This patient requires critical care secondary to ongoing requirements for therapy not offered or safe outside the critical care environment. Transfer to a lower level of care will result in altered life or limb morbidity and mortality. 3. Multidisciplinary rounds completed. 4. ABCDE bundle addressed.
--- NOTE | 2019-04-29 15:08 | PDOC TRANSFER SUMMARY ---
General - Admit/Disc Date/PCP Admission Date/Primary Care Provider: 04/27/19 23:02 DEUCE COATES MD Discharge Date: 04/29/19 - Discharge Diagnosis (1) Coma Is this a current diagnosis for this admission?: Yes (2) Status epilepticus due to complex partial seizure Is this a current diagnosis for this admission?: Yes (3) Hyponatremia Is this a current diagnosis for this admission?: Yes (4) Lung cancer metastatic to brain Is this a current diagnosis for this admission?: Yes (5) Seizure disorder Is this a current diagnosis for this admission?: Yes (6) Brain mass Is this a current diagnosis for this admission?: Yes (7) Diabetes Is this a current diagnosis for this admission?: Yes (8) Hemiparesis of right dominant side Is this a current diagnosis for this admission?: Yes (9) Hypomagnesemia Is this a current diagnosis for this admission?: Yes (10) Primary cancer of right lower lobe of lung Is this a current diagnosis for this admission?: Yes (11) Syndrome of inappropriate ADH (SIADH) secretion Is this a current diagnosis for this admission?: Yes - Additional Information Resuscitation Status: Comfort Measures Only Discharge Diet: As Tolerated Discharge Activity: Activity As Tolerated Home Medications: Ergocalciferol (Vitamin D2) [Drisdol 50,000 unit (1.25MG) Capsule] 50,000 unit PO RODRÍGUEZ@1000 03/21/19 Fenofibrate Nanocrystallized [Tricor 145 mg Tablet] 145 mg PO DAILY 03/21/19 Levetiracetam [Keppra] 1,000 mg PO DAILY 03/21/19 Megestrol Acetate [Megace 20 mg Tablet] 20 mg PO DAILY 03/21/19 Metformin HCl [Glucophage 500 mg Tablet] 1,000 mg PO BID 03/21/19 Pantoprazole Sodium [Protonix [address] Tablet] 40 mg PO DAILY 03/21/19 Dexamethasone [Decadron 4 mg Tablet] 4 mg PO Q12 #14 tablet 03/25/19 Atorvastatin Calcium [Lipitor 40 mg Tablet] 40 mg PO QHS 04/28/19 Icosapent Ethyl [Vascepa] 1 gm PO QID 04/28/19 Megestrol Acetate [Megace Elise 400 mg/10 ml Udcup] 400 mg PO DAILY 04/28/19 Nifedipine [Nifedipine ER] 60 mg PO DAILY 04/28/19 Sitagliptin Phosphate [Januvia 50 mg Tablet] 50 mg PO DAILY 04/28/19 History of Present Illness Admission Date/PCP: 04/27/19 23:02 DEUCE COATES MD Patient complains of: Seizure with Encephalopathy History of Present Illness: SAQIB HILLS is a 64 year old male with a history of metastatic lung cancer with significant metastatic disease to the brain first diagnosed in 2018. Patient has had multiple admissions and ER visits for similar complaints, and presents again today with seizure activity and is status post fall from his wheelchair. CT scan showed a new 4.5 mm hyperdense focus within a known right lateral parietal metastatic lesion suggestive of mild intralesional hemorrhage. Other metastatic lesions appear unchanged. Patient's case was presented to an outside hospital with neurosurgery capabilities, however, he was denied as he is not a safe surgical candidate. I held an extensive conversation with his and brother regarding his overall condition in terms of this new presentation. Although he has stated in the past that he would want to remain full code, his family is discussing this evening whether or not cardiopulmonary resuscitation would be appropriate at this stage of his disease evolution. He was admitted to the intensive care unit for management of his acute seizures. Hospital Course Hospital Course: 04.29.2019: No demonstrable improvement. Last evening he appeared to have some non- generalized movement and upward gaze with automaticity's of the mouth concerning for partial complex seizure. He was given Ativan. Patient has remained comatose without any notable active seizure. MRI consistent with extensive metastatic disease with evolution of microhemorrhage leading to calcification within tumor bed. Had lengthy discussion with the , Mariann and the patient's brother Harrison. Given the circumstances he was transitioned to DNR/DNI with comfort care as an option. We are currently waiting hospice team to place patient. Patient remains comatose and his neurological exam appears to be worsening. Yesterday he had at least purposeful movement of the left arm but today has flexion of movements only. His last dose of Ativan was last evening and there is not been any observable clinical seizures. The family does not wish to pursue any aggressive care or measures. His urine is positive for infection as well. As noted below discussion was carried out with the family and repeated today. Given his decline the family has transitioned him to comfort care and we are awaiting hospice He also will need to be treated for his seizures and a palliative comfort measu re and I have assured the family of this. They will need to decide whether they would like to continue steroids but at the risk of worsening his situation. We will continue to provide assurance and comfort care for both the family and the patient. Reviewed MRI after official reading. Our finding is that there have been no acute bleeds but previous microbleeds with calcification. The masses have increased in both size and number. Met with the , Mariann and his brother Harrison (who is been recently reintroduced into the patient's life after some time). Shared with him the neurosurgical opinion as well as the opinion of the oncology service that the patient is involved with. Given the fact that he has significant seizures with multiple increased size lesions the has agreed to hospice and comfort care. Brother Harrison is in agreement as well. I shared with them that we will have the hospice team evaluate tomorrow and offer him options. My suggestion would be for inpatient given the fact that his seizures have been difficult to control. We will continue AEDs and a palliative fashion. Should seizures become worse the family has opted for him to have comfort and are in agreement for Ativan to control. 04.28.2019: Patient admitted late 04/27/2019 with altered mental status and seizures fall from his wheelchair. He is on CT scan to have what appears to be intralesional small punctate hemorrhage. Required Ativan last evening for what appeared to be nonconvulsive or partial complex seizures. He is noncommunicative this morning and responds only to noxious stimuli. During afternoon rounds after his MRI he was noted to be looking to the left with mild nystagmus and sonorous breathing. He was given Ativan and concern for seizure. This was not a tonic-clonic presentation Patient unable to offer any review of symptoms. Nursing notes no seizures. The dynamics have been non-labile with only a transient blood pressure elevation x1 of 180. Repeat blood pressure was below 160. I am very concerned about this patient and have ordered an MRI. View of the CAT scan there appears to be possible punctate hemorrhage but also this may represent increasing growth with calcification as a result. I reviewed the MRI personally before official radiology report. There are increased size masses that were previously smaller and in addition development of new masses. There appears to be heterogeneously intense signal but most of the lesions are ring- enhancing and enlarged. Awaiting official radiographic results. 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 We are in a difficult situation because it would be preferable to have his sodium levels higher however we do not want to induce a demyelination syndrome. I have discussed with his who is wanting to make him comfort care and is entertaining early hospice transition. However his immediate family including brothers and sisters feel that there is hope and would want to push with fully aggressive measures. We discussed the fact that neurosurgical care is not warranted nor would it be of any benefit and in fact may worsen his outcome. Did place a phone call to his oncologist, Dr. Dorado. He had encouraged and started the process of hospice for this patient however at the time the patient became lucid and did not want this. The situation is now changed given the comparative increase in size of the lesions and his current neurological state. Would not want him intubated nor undergo resuscitation should that occur. Concerned that we may be encountering a refractory status epilepticus situation and we currently do not have continuous EEG monitoring. It is reduced neurological status which may have been from the Ativan he received or higher dose Keppra I have decreased the Keppra to 1000 mg twice a day and added Vimpat. Need to monitor effect and also watch LFTs. If this is not effective we will be forced to add Dilantin which is difficult to manage in the face of Decadron which this patient has been on and the dose has been increased. This is a near terminal situation and we wait his brother who is been caring for him as well so that we can discuss further care. If they wish to pursue aggressive care then we will be forced to transfer the patient to a tertiary care center for further care. Physical Exam Vital Signs: Temp Pulse Resp BP Pulse Ox 99.0 F 62 13 141/87 H 100 04/29/19 12:00 04/29/19 12:00 04/29/19 12:00 04/29/19 12:00 04/29/19 12:00 Intake & Output 04/28/19 04/29/19 04/30/19 06:59 06:59 06:59 Intake Total 1100 2269 Output Total 175 1380 551 Balance 925 -902 -189 Weight 65.1 kg 63.7 kg Exam: See today's progress note Results Laboratory Results: 04/29/19 03:53 04/29/19 03:53 04/28/19 04/28/19 04/28/19 17:14 17:50 19:15 WBC RBC Hgb Hct MCV MCH MCHC RDW Plt Count Seg Neutrophils % Sodium 135.1 L Potassium 3.7 Chloride 105 Carbon Dioxide 24 Anion Gap 6 BUN 9 Creatinine 0.34 L Est GFR ( Amer) > 60 Glucose 159 H Lactic Acid 1.6 Calcium 8.4 Phosphorus Magnesium Total Bilirubin AST Alkaline Phosphatase Ammonia Total Protein Albumin Urine Color YELLOW Urine Appearance SLIGHTLY-CLOUDY Urine pH 7.0 Ur Specific [place] 1.011 Urine Protein NEGATIVE Urine Glucose (UA) 50 H Urine Ketones TRACE H Urine Blood LARGE H Urine Nitrite NEGATIVE Ur Leukocyte Esterase NEGATIVE Urine WBC (Auto) 15 Urine RBC (Auto) >182 04/29/19 04/29/19 04/29/19 03:53 03:53 03:53 WBC 10.3 RBC 4.52 Hgb 14.0 Hct 39.8 MCV 88 MCH 30.9 MCHC 35.2 RDW 15.4 H Plt Count 161 Seg Neutrophils % 90.0 H Sodium 133.5 L Potassium 3.6 Chloride 102 Carbon Dioxide 24 Anion Gap 8 BUN 10 Creatinine 0.40 L Est GFR ( Amer) > 60 Glucose 191 H Lactic Acid Calcium 8.2 L Phosphorus 3.7 Magnesium 2.2 Total Bilirubin 0.6 AST 16 L Alkaline Phosphatase 44 Ammonia < 8.7 L Total Protein 5.3 L Albumin 3.0 L Urine Color Urine Appearance Urine pH Ur Specific [place] Urine Protein Urine Glucose (UA) Urine Ketones Urine Blood Urine Nitrite Ur Leukocyte Esterase Urine WBC (Auto) Urine RBC (Auto) Impressions: Head CT 04/27/19 18:25 IMPRESSION: New 4.5 mm hyperdense focus within a known right lateral periatrial metastatic lesion suggestive of mild intralesional hemorrhage. Additional metastatic lesions and prominent bilateral frontal parietal lobe vasogenic edema remain unchanged. EVIDENCE OF ACUTE STROKE: NO. Ankle X-Ray 04/27/19 18:27 IMPRESSION: 5 mm ossific fragment adjacent to me malleolus, most consistent with an age-indeterminate avulsion type fracture. Mild circumferential ankle soft tissue swelling. Cervical Spine CT 04/27/19 20:01 IMPRESSION: No acute fracture of the cervical spine. Osteoarthritis TECHNICAL DOCUMENTATION: Quality ID # [id number]: Final reports with documentation of one or more dose reduction techniques (e.g., Automated exposure control, adjustment of the mA and/or kV according to patient size, use of iterative reconstruction technique) copyright 2011 [employer]- All Rights Reserved Head MRI 04/28/19 00:00 IMPRESSION: Progression of multiple rim enhancing parenchymal masses throughout the cerebral hemispheres, largest measuring 3 cm in the deep white matter of the right frontal lobe. Vasogenic edema is present throughout the cerebral jose enrique spheric white matter, this has significantly progressed compared with the prior study, particularly in the left temporoparietal location with mild mass effect on the posterior aspect of the left lateral ventricle. Multiple lesions have evidence for prior hemorrhage -calcification on T1 and gradient images. Restricted peripheral diffusion is present in all the identified lesions. No evidence for large vessel infarction. EVIDENCE OF ACUTE STROKE: NO. Transfer Plan - Disposition Transfer Plan: Hospice. [facility] - Time Spent with Patient Time spent with patient: Less than 30 Minutes Qualifiers PATIENT BEING DISCHARGED WITH ANY OF THE FOLLOWING DIAGNOSIS: No VTE patient discharged on overlapping Therapy?: No Reason(s) for not prescribing Overlap Therapy:: Medical Contraindication Stroke Pt being discharged on Anti-thrombolytic therapy?: No Reason(s) for not prescribing Anti-thrombolytic therapy:: Medical Contraindi cation Stroke Pt being discharged on Anti-coagulation therapy?: No Reason(s) for not prescribing Anti-coagulation therapy:: Medical Contraindication Stroke Pt being discharged on Statins?: No Reason(s) for not prescribing Statins therapy:: Medical Contraindication Plan Time Spent: Greater than 30 Minutes
[2019-04-29 18:59] VITALS: BP 130/90
== END 2019-04-29 18:55 | disposition hospice, inpatient (51) | DRG 55 ==
LOC: ER 16:01 → EH 23:02 → ICU 04-28 00:35
PROVIDERS: ADMIT Internal Medicine Critical Care Medicine; ATTEND Internal Medicine Critical Care Medicine
DX: C79.31 Secondary malignant neoplasm of brain (principal); C34.90 Malignant neoplasm of unspecified part of unspecified bronchus or lung; G81.91 Hemiplegia, unspecified affecting right dominant side; E22.2 Syndrome of inappropriate secretion of antidiuretic hormone; G40.201 Localization-related (focal) (partial) symptomatic epilepsy and epileptic syndromes with complex partial seizures, not intractable, with status epilepticus; N39.0 Urinary tract infection, site not specified; I25.10 Atherosclerotic heart disease of native coronary artery without angina pectoris; E78.00 Pure hypercholesterolemia, unspecified; I10 Essential (primary) hypertension; E83.42 Hypomagnesemia; E11.8 Type 2 diabetes mellitus with unspecified complications; R40.2430 Glasgow coma scale score 3-8, unspecified time; F17.210 Nicotine dependence, cigarettes, uncomplicated; Z79.84 Long term (current) use of oral hypoglycemic drugs; Z79.899 Other long term (current) drug therapy; Z66 Do not resuscitate
CPT/HCPCS: 36415; 70450; 70553; 72125; 80048; 80053; 80076; 80177; 80307; 81001; 82140; 82570; 82962; 83605; 83735; 84100; 84133; 84300; 85025; 85610; 85730; 87086; 87088; 87186; 93005; 93010; 96365; 96375; 99239; 99291; 99292; A9576; C9254; J0696; J1100; J1815; J1953; J2060; J3475; J3490; J7030